=== PATIENT | female | born 1945 | race Caucasian/White ===

== ENCOUNTER 2019-04-02 13:14 | Observation (INO) | payer MEDICARE, SELFPAY ==
[2019-04-02] VITALS (36 sets, daily range): BP systolic 93–140; BP diastolic 54–99; PULSE 0–121; RESP 13–36; TEMP 36.3–36.6; O2SAT 77–99; BMI 46.7
--- NOTE | 2019-04-02 13:19 | ED_ITS ---
HPI - General Adult General: Chief complaint: Dizziness Stated complaint: Anemia, Hypokalemia Time Seen by Provider: 04/02/19 13:16 History of Present Illness: HPI narrative: 73 yo female present presents from her primary care physician's office with hypokalemia and severe anemia she is on Coumadin for atrial fibrillation a few weeks ago she noticed some dark tarry stools but nothing recently she denies any fever sweats chills chest pain she does have some orthopnea. She is not had any hematemesis or coffee-ground emesis she has been taking her Coumadin regularly Associated symptoms: Deny chest pain, dyspnea, malaise, nausea, rash or vomiting Review of Systems Const: Reports: fatigue; Denies: fever, chills, body aches, change in appetite or malaise ENMT: Denies: throat pain, ear pain, nasal discharge or nasal congestion Card: Denies: chest pain, edema, shortness of breath on exertion or shortness of breath when lying down Resp: Denies: shortness of breath, productive cough or non-productive cough GI: Denies: abdominal pain, nausea, vomiting, vomiting blood, coffee grounds in vomit, diarrhea, constipation, bloating, blood in stool or black tarry stool : Denies: flank pain, difficulty urinating, painful urination, urinary frequency or urinary urgency Skin/Breast: Denies: rash or itching PFSH ED PFSH: Statuses (acute, chronic, etc) shown below reflect problem list status as previously entered and may not be historically accurate Medical History Alcohol consumption binge drinking (Acute) Atrial fibrillation, chronic (Resolved) Dyslipidemia (Resolved) Hypertension (Resolved) Lower extremity edema (Acute) RLS (restless legs syndrome) (Resolved) Smoking addiction (Acute) Surgical History H/O tubal ligation (Acute) History of cataract extraction (Acute ~2019) History of hysterectomy (Acute) History of knee replacement (Acute ~2006) right knee Family History Mother Guillain Gonzalez? syndrome Father Alcoholism Social History Smoking and tobacco status: current every day smoker cigarettes Packs smoked per day: 2 Alcohol intake: current Alcohol intake frequency: 3 or more drinks per day Marital status: Current occupational status: retired Physical Exam Const: COMMON NORMALS: no apparent distress GENERAL APPEARANCE: cooperative and comfortable ORIENTATION/CONSCIOUSNESS: Yes awake, Yes oriented to person, Yes oriented to place and Yes oriented to time HENMT: COMMON NORMALS: normocephalic, head/scalp atraumatic, hearing grossly normal bilaterally, external ears normal, EAC's normal, TM's normal bilaterally, nasal mucous membranes and turbinates normal, moist oral mucous membranes and oropharynx normal HEAD & SCALP: normocephalic and atraumatic NOSE: nasal mucous membranes and turbinates normal EXTERNAL EAR: Yes external ears normal EXTERNAL AUDITORY CANAL: EAC's normal TYMPANIC MEMBRANE: TM's normal bilaterally Eye: COMMON NORMALS: PERRL, EOMs intact bilaterally, conjunctivae normal and no scleral icterus CONJUNCTIVA: Yes conjunctivae normal PUPIL: Yes PERRL Neck/C-Spine: COMMON NORMALS: full ROM, no lymphadenopathy, supple and no JVD Lymph: LYMPHATIC: no lymphadenopathy noted and no lymphedema noted Resp: COMMON NORMALS: normal respiratory effort, no retractions, no use of accessory muscles and clear to auscultation bilaterally AUSCULTATION: clear to auscultation bilaterally Cardio: COMMON NORMALS: no JVD, regular rate, regular rhythm and no murmurs RATE: regular rate RHYTHM: regular rhythm GI: COMMON NORMALS: soft to palpation and no hepatosplenomegaly A USCULTATION: Yes normoactive bowel sounds PALPATION: Yes soft, No tender, No guarding and Yes no hepatosplenomegaly Extremity: COMMON NORMALS: normal to inspection, normal capillary refill, no clubbing, cyanosis or edema, no calf tenderness and no pedal edema Neuro: SENSORIUM/ORIENTATION: Yes oriented to person, Yes oriented to place and Yes oriented to time Skin: COMMON NORMALS: no rashes or lesions noted GENERAL SKIN EXAM: no rashes or lesions noted Course ED course: Significant anemia and hypokalemia discussed with hospitalist will admit the patient for IV potassium as well as transfusions. Vital Signs: Vital signs: Vital Signs Temperature 98.0 F 04/03/19 10:19 Pulse Rate 115 H 04/03/19 10:19 Respiratory Rate 18 04/03/19 10:19 Blood Pressure 139/88 04/03/19 10:19 Pulse Oximetry 99 04/03/19 10:19 [facility] - General Adult Lab Data: Attestation: I reviewed the patient's lab results. Lab results narrative: Hemoglobin on admission 6 6. INR 2.3, potassium 2.4. Labs: Lab Results 04/02/19 04/02/19 04/02/19 Range/Units 13:53 13:53 13:53 WBC 7.6 (4.0-10.0) 10^3/ uL RBC 2.89 L (4.1-5.3) 10^6/u L Hgb 6.6 L (11.5-15.3) g/dL Hct 22.6 L (37.0-47.0) % MCV 78.2 L D (81-99) fL MCH 22.8 L (28.0-34.0) pg MCHC 29.2 L D (30.0-36.0) g/dL RDW 18.6 H (12.1-15.1) % Plt Count 332 (130-400) 10^3/c mm MPV 10.4 (7.4-10.4) fL Neut % (Auto) 72.1 % Lymph % (Auto) 20.3 % [place] % (Auto) 5.4 % Eos % (Auto) 1.3 % Baso % (Auto) 0.5 % Neut # (Auto) 5.5 (1.8-7.7) 10^3/u L Lymph # (Auto) 1.6 (0.8-4.8) 10^3/u L [place] # (Auto) 0.4 (0.2-0.9) 10^3/u L Eos # (Auto) 0.1 (0.0-0.8) 10^3/u L Baso # (Auto) 0.0 (0.0-0.1) 10^3/u L Nucleated RBC % (a uto) 0 % Nucleated RBCs # 0.0 /100WBC PT 26.50 H (10.5-13.3) SECO NDS INR 2.33 H (0.8-1.2) APTT 43.0 H (23.9-36.7) SECO NDS Sodium 138 (136-145) mmol/L Potassium 2.4 L* (3.5-5.1) mmol/L Chloride 95 L (98-107) mmol/L Carbon Dioxide 30 H (22-29) mmol/L Anion Gap 15.4 (5-19) BUN 13 (8-23) mg/dL Creatinine 1.1 H (0.5-0.9) mg/dL Glucose 107 H (74-106) mg/dL Calcium 9.3 (8.5-10.5) mg/dL Magnesium (1.7-2.3) mg/dL Iron (37-145) ug/dL TIBC mcg/dl % Saturation (20-50) % Unsat Iron Binding (112-347) ug/dL Ferritin (15-150) ng/mL Total Bilirubin 0.4 (0.15-1.2) mg/dL AST 17 (0-32) U/L ALT 8 (0-33) U/L Alkaline Phosphata se 111 H (35-105) IU/L Creatine Kinase 61 (26-192) U/L Total Protein 7.3 (6.6-8.7) g/dL Albumin 3.7 (3.5-5.2) g/dL Globulin 3.6 (1.3-4.6) g/dL Lipase 27 (13-60) U/L Urine Color (Yellow) Urine Appearance (CLEAR) Urine pH (5-7) Ur Specific Gravit y (1.005-1.030) Urine Protein (Negative) Urine Glucose (UA) (Normal) Urine Ketones (Negative) Urine Occult Blood (Negative) Urine Nitrate (Negative) Urine Bilirubin (NEGATIVE) Urine Urobilinogen (Negative) mg/dL Ur Leukocyte Taylor ase (Negative) H. pylori IgG Anti body (Negative) Blood Type Antibody Screen Crossmatch 04/02/19 04/02/19 04/02/19 Range/Units 13:53 13:53 13:53 WBC (4.0-10.0) 10^3/ uL RBC (4.1-5.3) 10^6/u L Hgb (11.5-15.3) g/dL Hct (37.0-47.0) % MCV (81-99) fL MCH (28.0-34.0) pg MCHC (30.0-36.0) g/dL RDW (12.1-15.1) % Plt Count (130-400) 10^3/c mm MPV (7.4-10.4) fL Neut % (Auto) % Lymph % (Auto) % [place] % (Auto) % Eos % (Auto) % Baso % (Auto) % Neut # (Auto) (1.8-7.7) 10^3/u L Lymph # (Auto) (0.8-4.8) 10^3/u L [place] # (Auto) (0.2-0.9) 10^3/u L Eos # (Auto) (0.0-0.8) 10^3/u L Baso # (Auto) (0.0-0.1) 10^3/u L Nucleated RBC % (a uto) % Nucleated RBCs # /100WBC PT (10.5-13.3) SECO NDS INR (0.8-1.2) APTT (23.9-36.7) SECO NDS Sodium (136-145) mmol/L Potassium (3.5-5.1) mmol/L Chloride (98-107) mmol/L Carbon Dioxide (22-29) mmol/L Anion Gap (5-19) BUN (8-23) mg/dL Creatinine (0.5-0.9) mg/dL Glucose (74-106) mg/dL Calcium (8.5-10.5) mg/dL Magnesium 1.8 (1.7-2.3) mg/dL Iron 15 L (37-145) ug/dL TIBC 396 mcg/dl % Saturation 3.7 L (20-50) % Unsat Iron Binding 381 H (112-347) ug/dL Ferritin 10 L (15-150) ng/mL Total Bilirubin (0.15-1.2) mg/dL AST (0-32) U/L ALT (0-33) U/L Alkaline Phosphata se (35-105) IU/L Creatine Kinase (26-192) U/L Total Protein (6.6-8.7) g/dL Albumin (3.5-5.2) g/dL Globulin (1.3-4.6) g/dL Lipase (13-60) U/L Urine Color (Yellow) Urine Appearance (CLEAR) Urine pH (5-7) Ur Specific Gravit y (1.005-1.030) Urine Protein (Negative) Urine Glucose (UA) (Normal) Urine Ketones (Negative) Urine Occult Blood (Negative) Urine Nitrate (Negative) Urine Bilirubin (NEGATIVE) Urine Urobilinogen (Negative) mg/dL Ur Leukocyte Taylor ase (Negative) H. pylori IgG Anti body Positive H (Negative) Blood Type A Positive Antibody Screen Negative Crossmatch See Detail 04/02/19 Range/Units 14:14 WBC (4.0-10.0) 10^3/ uL RBC (4.1-5.3) 10^6/u L Hgb (11.5-15.3) g/dL Hct (37.0-47.0) % MCV (81-99) fL MCH (28.0-34.0) pg MCHC (30.0-36.0) g/dL RDW (12.1-15.1) % Plt Count (130-400) 10^3/c mm MPV (7.4-10.4) fL Neut % (Auto) % Lymph % (Auto) % [place] % (Auto) % Eos % (Auto) % Baso % (Auto) % Neut # (Auto) (1.8-7.7) 10^3/u L Lymph # (Auto) (0.8-4.8) 10^3/u L [place] # (Auto) (0.2-0.9) 10^3/u L Eos # (Auto) (0.0-0.8) 10^3/u L Baso # (Auto) (0.0-0.1) 10^3/u L Nucleated RBC % (a uto) % Nucleated RBCs # /100WBC PT (10.5-13.3) SECO NDS INR (0.8-1.2) APTT (23.9-36.7) SECO NDS Sodium (136-145) mmol/L Potassium (3.5-5.1) mmol/L Chloride (98-107) mmol/L Carbon Dioxide (22-29) mmol/L Anion Gap (5-19) BUN (8-23) mg/dL Creatinine (0.5-0.9) mg/dL Glucose (74-106) mg/dL Calcium (8.5-10.5) mg/dL Magnesium (1.7-2.3) mg/dL Iron (37-145) ug/dL TIBC mcg/dl % Saturation (20-50) % Unsat Iron Binding (112-347) ug/dL Ferritin (15-150) ng/mL Total Bilirubin (0.15-1.2) mg/dL AST (0-32) U/L ALT (0-33) U/L Alkaline Phosphata se (35-105) IU/L Creatine Kinase (26-192) U/L Total Protein (6.6-8.7) g/dL Albumin (3.5-5.2) g/dL Globulin (1.3-4.6) g/dL Lipase (13-60) U/L Urine Color Yellow (Yellow) Urine Appearance Clear (CLEAR) Urine pH 7 (5-7) Ur Specific Gravit y 1.005 (1.005-1.030) Urine Protein Neg (Negative) Urine Glucose (UA) Norm (Normal) Urine Ketones Negative (Negative) Urine Occult Blood Neg (Negative) Urine Nitrate Negative (Negative) Urine Bilirubin Neg (NEGATIVE) Urine Urobilinogen Norm (Negative) mg/dL Ur Leukocyte Taylor ase Negative (Negative) H. pylori IgG Anti body (Negative) Blood Type Antibody Screen Crossmatch Discharge Plan Discharge Patient Disposition: Admitted As Inpatient Admit Provider: Zaheer Crawford Clinical Impression: Hypokalemia, Acute blood loss anemia, Lower extremity edema Condition: Stable Discharge Orders: Discharge Order (Routine); Ordered 04/03/19 Ordered By: Zaheer Crawford Referrals: Surgery [Provider Group] - 04/11/19 8:45 am (EGD APPOINTMENT WITH [facility] [phone] ON APR 11 AT 8:45) Aftab Gutierres DO [Primary Care Provider] - 04/09/19 11:30 am Alonso Lara MD [Physician] - 04/11/19 8:45 am Discharge Diet: Soft Mechanical Discharge Activity: Resume usual activity Patient Instructions: Sucralfate (By mouth), Potassium Chloride (By mouth), Fol ic Acid (By mouth), Pantoprazole (By mouth), Cigarette Smoking and Your Health (GEN), At-Risk Alcohol Use (GEN) Additional Instructions: If you experience dark black stools, fresh blood in your stools, fainting, lightheadedness, chest pain, worsening shortness of breath, or other symptoms please seek medical attention without delay. Please avoid any NSAIDs like ibuprofen, naproxen, etc. Add foods rich in potassium like bananas, oranges, tomatoes, potatoes, etc. Discharge Date/Time: 04/02/19 20:10 Coding Level of Care Code ED Food Consultant for Chg Fwd Exam Problem Focused
--- NOTE | 2019-04-02 13:41 | XR_ITS ---
WS: [id number] PORTABLE CHEST HISTORY: dypsnea COMPARISON: None available. Lungs are hyperexpanded. Increased density at the lung bases is thought to be overlying soft tissue a nd not pneumonia. Normal vasculature. No pleural effusion or pneumothorax. Cardiac size: Normal. Mediastinum/Aorta: Normal mediastinum. No osseous abnormality seen. XR/XR chest 1V portable [id number] IMPRESSION: Unremarkable portable chest.
[2019-04-02 14:10] LABS: Basophils % 0.5 %; Eosinophils # 0.1 10^3/uL (0.0-0.8); Eosinophils % 1.3 %; Hematocrit 22.6 % (37.0-47.0); Hemoglobin 6.6 g/dL (11.5-15.3); INR 2.33 (0.8-1.2); Lymphocytes # 1.6 10^3/uL (0.8-4.8); Lymphocytes % 20.3 %; Mean Corpuscular HGB Conc 29.2 g/dL (30.0-36.0); Mean Corpuscular Hemoglobin 22.8 pg (28.0-34.0); Mean Corpuscular Volume 78.2 fL (81-99); Mean Platelet Volume 10.4 fL (7.4-10.4); Monocytes # 0.4 10^3/uL (0.2-0.9); Monocytes % 5.4 %; Neutrophils # 5.5 10^3/uL (1.8-7.7); Neutrophils % 72.1 %; Nucleated Red Blood Cells % 0 %; Platelet Count 332 10^3/cmm (130-400); Red Blood Count 2.89 10^6/uL (4.1-5.3); Red Cell Distribution Width 18.6 % (12.1-15.1); White Blood Count 7.6 10^3/uL (4.0-10.0)
[2019-04-02 14:18] LABS: Alanine Aminotransferase 8 U/L (0-33); Albumin Level 3.7 g/dL (3.5-5.2); Alkaline Phosphatase 111 IU/L (35-105); Anion Gap 15.4 (5-19); Aspartate Amino Transferase 17 U/L (0-32); Blood Urea Nitrogen 13 mg/dL (8-23); Calcium 9.3 mg/dL (8.5-10.5); Carbon Dioxide 30 mmol/L (22-29); Chloride 95 mmol/L (98-107); Creatine Phosphokinase 61 U/L (26-192); Globulin 3.6 g/dL (1.3-4.6); Glucose 107 mg/dL (74-106); Lipase 27 U/L (13-60); Sodium 138 mmol/L (136-145); Total Bilirubin 0.4 mg/dL (0.15-1.2); Total Protein 7.3 g/dL (6.6-8.7)
[2019-04-02 14:24] LABS: Potassium 2.4 mmol/L (3.5-5.1)
[2019-04-02 14:25] LABS: Add Urine Microscopic? NO
[2019-04-02 14:40] LABS: Urine Appearance Clear (CLEAR); Urine Color Yellow (Yellow)
[2019-04-02 14:41] LABS: Bilirubin Urine Neg (NEGATIVE); Blood Urine Neg (Negative); Glucose Urine UA Norm (Normal); Ketones Urine Negative (Negative); Leukocyte Esterase Urine Negative (Negative); Nitrate Urine Negative (Negative); Protein Urine Neg (Negative); Specific Gravity, Urine 1.005 (1.005-1.030); Urobilinogen Urine Norm (Negative); pH Urine 7 (5-7)
[2019-04-02] MEDS: acetaminophen 325 mg Tablet 650 MG PO (14:58)
[2019-04-02] MEDS: diphenhydrAMINE 50 mg/mL SDV 1mL 25 MG IVP (15:16)
[2019-04-02] MEDS: potassium chloride premix 40 MEQ/100 ML PREMIX 25 MEQ IV (15:17)
[2019-04-02] MEDS: sodium chloride 0.9% 1,000 ML 125 ML IV (15:18)
--- NOTE | 2019-04-02 15:33 | PM.HP ---
Providers/Chief Complaint Primary Care Provider: Aftab Gutierres DO Chief Complaint: Anemia, Hypokalemia History of Present Illness Jazmín Quinteros is a pleasant 73 year old female with history of atrial fibrillation, on chronic anticoagulation with warfarin, chronic edema, she states possible CHF was considered by her PCP, on chronic diuretic therapy, chronic pain for which she takes ibuprofen, current heavy every day smoker, with binge alcohol intake was referred to emergency department for evaluation by her primary care provider due to abnormal labs, including hemoglobin of 6.6, with recently with symptoms of fatigue, especially with exertion, as well as with noted hypokalemia, potassium 2.3. Her INR is therapeutic at 2.3. She reports having dark black stool several weeks ago which had spontaneously resolved. She had a Hemoccult checked in ER which was negative. She denies taking aspirin. She does take ibuprofen intermittently for chronic pain. She drinks she states probably 3 times weekly, about 6-7 shots on those occasions. She reports having a colonoscopy [address] Rene which was unremarkable. She denies having upper endoscopy, although did have a barium swallow study a very long time ago. She smokes 2 packs/day. Review of Systems Const: Reports: fatigue; Denies: fever, chills, body aches or malaise Eyes: Denies: change in vision or eye redness ENMT: Denies: throat pain, oral sores/lesions or ear pain Card: Reports: edema; Denies: chest pain, pre-syncope or shortness of breath on exertion Resp: Denies: shortness of breath, productive cough, change in phlegm color or coughing up blood GI: Reports: black tarry stool (Several weeks ago); Denies: abdominal pain, nausea, vomiting, diarrhea, constipation or blood in stool : Denies: flank pain, urinary frequency or blood in urine Musc: Denies: back pain, joint swelling or redness Skin/Breast: Denies: rash, sores or new lesion Neuro: Denies: headache, numbness in extremities, weakness in extremities, dizziness, confusion or seizure-like activity Endo: Denies: excessive urination or excessive thirst Ty/Lymph: Denies: easy bleeding or purpura All/Imm: Denies: hives, throat swelling or tongue swelling Medications/Allergies Home Medications Medication Instructions Recorded Confirmed Last Taken Type warfarin 1 mg PO DAILY 04/02/19 04/02/19 04/01/19 History warfarin 3 mg PO DAILY 04/02/19 04/02/19 04/01/19 History Allergies Allergy/AdvReac Type Severity Reaction Status Date / Time meperidine [From Demerol] AdvReac Intermediate ADR-Itching Verified 04/02/19 10:33 PFSH Acute PFSH: Statuses (acute, chronic, etc) shown below reflect problem list status as previously entered and may not be historically accurate Medical History Alcohol consumption binge drinking (Acute) Atrial fibrillation, chronic (Acute) Dyslipidemia (Acute) Hypertension (Acute) Lower extremity edema (Acute) RLS (restless legs syndrome) (Acute) Smoking addiction (Acute) Surgical History H/O tubal ligation (Acute) History of cataract extraction (Acute ~2018) History of hysterectomy (Acute) History of knee replacement (Acute ~2006) right knee Family History Mother Guillain Gonzalez? syndrome Father Alcoholism Social History Smoking and tobacco status: current every day smoker cigarettes Packs smoked per day: 2 Alcohol intake: current Alcohol intake frequency: 3 or more drinks per day Substance/Drug Use: never Marital status: Current occupational status: retired Vitals/I&O/Wt Last Vital Signs Temp 97.8 F 04/02/19 13:17 Pulse 98 04/02/19 13:17 Resp 16 04/02/19 13:17 BP 106/70 04/02/19 13:17 Pulse Ox 97 04/02/19 13:17 Weight last 48 hrs Weight 116.12 kg Physical Exam Const: COMMON NORMALS: no apparent distress, oriented x3 and alert GENERAL APPEARANCE: cooperative and comfortable NUTRITIONAL APPEARANCE: obese HENMT: COMMON NORMALS: oropharynx normal Neck/C-Spine: COMMON NORMALS: no JVD Resp: COMMON NORMALS: normal respiratory effort and clear to auscultation bilaterally AUSCULTATION: clear to auscultation bilaterally Cardio: COMMON NORMALS: no JVD, regular rhythm, S1 normal heart sound, S2 normal heart sound and no murmurs RHYTHM: regular rhythm HEART SOUNDS: S1 normal and S2 normal GI: COMMON NORMALS: normal to inspection, nondistended, normoactive bowel sounds, soft to palpation and non-tender PALPATION: Yes soft Extremity: COMMON NORMALS: no joint enlargement GENERAL: Yes edema Neuro: COMMON NORMALS: oriented x3 and moves all extremities Skin: COMMON NORMALS: no rashes or lesions noted GENERAL SKIN EXAM: no rashes or lesions noted OTHER: Bilateral lower extremity chronic venous stasis dermatitis. Data : 04/02/19 13:53 04/02/19 13:53 A&P Assessment and plan (1) Acute blood loss anemia: Hemoglobin 6.6. Symptomatic anemia. Black tarry stools several weeks ago. Resolved. Hemoccult negative in ER. With symptoms of easy fatigability. She is placed in observation for transfusion of PRBC and reassessment of hemoglobin due to chronic anticoagulation. Suspect gastritis or PUD given NSAID use, alcohol overuse. We will start twice daily PPI. Sucralfate. Counseled against NSAID use, as well as alcohol cessation. She verbalized understanding. Assess H. pylori studies. Will refer for screening EGD given chronic smoking, alcohol intake. Status: Acute Code(s): D62 - Acute posthemorrhagic anemia (2) Hypokalemia: Replace. Check magnesium. Status: Acute Code(s): E87.6 - Hypokalemia (3) Atrial fibrillation, chronic: On chronic anticoagulation with warfarin. Continue Cardizem. Status: Acute Code(s): I48.20 - Chronic atrial fibrillation, unspecified (4) Smoking addiction: Discussed cessation for 4 minutes. Discussed risks associated with stomach cancer, as well as cardiovascular and pulmonary complications. She verbalized understanding. She smokes 2 packs/day currently. She does understand that she should quit, although is not sure whether she is ready. She is agreeable for nicotine patch and oral nicotine replacement for cravings while in the hospital. Status: Acute Code(s): F17.200 - Nicotine dependence, unspecified, uncomplicated (5) Alcohol consumption binge drinking: Reports 6-7 shots about 3 times a week. Discussed with her regarding risks of excessive alcohol consumption. Recommended she discontinue or at least decrease. She verbalized understanding. We will start her on thiamine, folic acid supplementation. Please continue to encourage cessation. Status: Acute Code(s): F10.10 - Alcohol abuse, uncomplicated (6) Lower extremity edema: Chronic edema of lower extremities for which she takes Lasix. Likely contributing to her hypokalemia. She states that congestive heart failure is considered by her primary care provider, although does not think she is formally diagnosed. Status: Acute Code(s): R60.0 - Localized edema Attestations Medical Necessity Statement*: Place in observation. Coding Level of Care Code Acute Production Sound Mixer for Germania Love Diagnoses Acute blood loss anemia D62 Hypokalemia E87.6 Atrial fibrillation, chronic I48.20 Smoking addiction F17.200 Alcohol consumption binge drinking F10.10 Lower extremity edema R60.0
--- NOTE | 2019-04-02 17:05 | PC.NURSE ---
pt ambulated to bathroom without need for assist. pt tolerated well and is resting in bed with no further complaints.
[2019-04-02 22:01] LABS: Magnesium 1.8 mg/dL (1.7-2.3)
[2019-04-02 22:06] LABS: H. Pylori IgG Antibody Positive (Negative)
[2019-04-02] MEDS: trazodone 100 mg Tablet 150 MG PO (22:50)
[2019-04-02] MEDS: dilTIAZem ER (24HR) 120 mg Capsule PO (22:54)
[2019-04-02] MEDS: nicotine 21 mg Patch 1 PATCH TRANSDERMA (22:54)
[2019-04-02] MEDS: atorvastatin 40 mg Tablet 20 MG PO (22:55)
[2019-04-02] MEDS: D5-NS 0.45% + KCL 20 mEq 20 MEQ/1,000 ML BAG 100 MEQ IV (22:56)
[2019-04-02] MEDS: pantoprazole DR 40 mg Tablet PO (22:58)
[2019-04-02] MEDS: nortriptyline 25 mg Capsule PO (22:58)
[2019-04-02] MEDS: diphenhydrAMINE 50 mg/mL SDV 1mL 12.5 MG IVP (23:50)
[2019-04-03] VITALS (7 sets, daily range): BP systolic 101–144; BP diastolic 67–88; PULSE 100–115; RESP 18–22; TEMP 36.6–36.9; O2SAT 90–99
[2019-04-03 00:57] LABS: Ferritin 10 ng/mL (15-150); Iron 15 ug/dL (37-145); Percent Saturation 3.7 % (20-50); Total Iron Binding Capacity 396 mcg/dl; Unsaturated Iron Binding 381 ug/dL (112-347)
[2019-04-03 05:32] LABS: Basophils % 0.7 %; Eosinophils # 0.1 10^3/uL (0.0-0.8); Eosinophils % 2.2 %; Hematocrit 27.1 % (37.0-47.0); Hemoglobin 8.3 g/dL (11.5-15.3); Lymphocytes # 1.1 10^3/uL (0.8-4.8); Lymphocytes % 18.4 %; Mean Corpuscular HGB Conc 30.6 g/dL (30.0-36.0); Mean Corpuscular Hemoglobin 24.3 pg (28.0-34.0); Mean Corpuscular Volume 79.5 fL (81-99); Mean Platelet Volume 10.5 fL (7.4-10.4); Monocytes # 0.3 10^3/uL (0.2-0.9); Monocytes % 5.8 %; Neutrophils # 4.3 10^3/uL (1.8-7.7); Neutrophils % 72.6 %; Nucleated Red Blood Cells % 0.3 %; Platelet Count 288 10^3/cmm (130-400); Red Blood Count 3.41 10^6/uL (4.1-5.3); Red Cell Distribution Width 17.3 % (12.1-15.1); White Blood Count 5.9 10^3/uL (4.0-10.0)
[2019-04-03 05:38] LABS: Alanine Aminotransferase 8 U/L (0-33); Albumin Level 2.9 g/dL (3.5-5.2); Alkaline Phosphatase 94 IU/L (35-105); Anion Gap 16.1 (5-19); Aspartate Amino Transferase 18 U/L (0-32); Blood Urea Nitrogen 8 mg/dL (8-23); Calcium 8.6 mg/dL (8.5-10.5); Carbon Dioxide 25 mmol/L (22-29); Chloride 97 mmol/L (98-107); Glucose 118 mg/dL (74-106); Potassium 3.1 mmol/L (3.5-5.1); Sodium 135 mmol/L (136-145); Total Bilirubin 1.1 mg/dL (0.15-1.2); Total Protein 6.9 g/dL (6.6-8.7)
[2019-04-03] MEDS: sucralfate 1 gm/10 mL Oral Liq UDC PO (06:34)
[2019-04-03] MEDS: pantoprazole DR 40 mg Tablet PO (10:08)
[2019-04-03] MEDS: folic acid 1 mg Tablet PO (10:09)
[2019-04-03] MEDS: nortriptyline 25 mg Capsule PO (10:09)
[2019-04-03] MEDS: FUROsemide 40 mg Tablet PO (10:09)
[2019-04-03] MEDS: metoprolol tartrate 50 mg Tablet PO (10:09)
[2019-04-03] MEDS: dilTIAZem ER (24HR) 120 mg Capsule PO (10:09)
--- NOTE | 2019-04-03 10:33 | PM.DCS ---
Discharge Providers Date of Admission: 04/02/19 14:33 Date of Discharge: 04/03/19 Attending Provider at Admission: Zaheer Crawford Attending Provider at Discharge: Zaheer Crawford Primary Care Provider: Aftab Gutierres DO Diagnoses at Discharge Discharge Diagnosis (1) Acute blood loss anemia: Status: Acute (2) Hypokalemia: Status: Acute (3) Atrial fibrillation, chronic: Status: Acute (4) Smoking addiction: Status: Acute (5) Alcohol consumption binge drinking: Status: Acute (6) Lower extremity edema: Status: Acute Reason for Visit Reason for Visit: Reason For Visit: Anemia, Hypokalemia Hospital Course Hospital Course: Very pleasant 73-year-old lady with history of atrial fibrillation, on chronic anticoagulation with warfarin, chronic edema, she states possible CHF was considered by her PCP, on chronic diuretic therapy, chronic pain for which she takes ibuprofen, current heavy every day smoker, with binge alcohol intake was referred to emergency department for assessment by her primary care provider due to abnormal hemoglobin, noted to be 6.6, with easy fatigability, as well as low potassium. She reported dark black stool several weeks ago. Hemoglobin found stable in ER, with negative Hemoccult. It appears she likely had an upper GI bleed, possibly related to NSAID's gastritis. She received RBC transfusion 2 units with good response, hemoglobin up to 8.3. She reports feeling much better today, request return home. Of note H. pylori antibody is positive. H. pylori stool antigen has been ordered, however, she has not been able to give a sample so far. She will try to before discharge. Please follow-up on this in office. Her potassium was replaced, and she started on daily replacement for now as she is on chronic Lasix. BMP and CBC will be rechecked in 3 days for hemoglobin and potassium. She is referred for EGD given long and heavy smoking history, currently smoking 2 packs/day. She was counseled on cessation, please assist her with quitting. She is also noted to be binge drinking, drinking 6-7 shots at least 3 days out of a week. We discussed cessation. She started on thiamine and folic acid. Please continue to assist her to abstain, or reduce alcohol intake. Physical Exam Const: COMMON NORMALS: no apparent distress, oriented x3 and alert GENERAL APPEARANCE: cooperative and comfortable NUTRITIONAL APPEARANCE: obese HENMT: COMMON NORMALS: oropharynx normal Neck/C-Spine: COMMON NORMALS: no JVD Resp: COMMON NORMALS: normal respiratory effort and clear to auscultation bilaterally AUSCULTATION: clear to auscultation bilaterally Cardio: COMMON NORMALS: no JVD, regular rhythm, S1 normal heart sound, S2 normal heart sound and no murmurs RHYTHM: regular rhythm HEART SOUNDS: S1 normal and S2 normal GI: COMMON NORMALS: normal to inspection, nondistended, normoactive bowel sounds, soft to palpation and non-tender PALPATION: Yes soft Extremity: COMMON NORMALS: no joint enlargement GENERAL: Yes edema Neuro: COMMON NORMALS: oriented x3 and moves all extremities SENSORIUM/ORIENTATION: Yes alert Skin: COMMON NORMALS: no rashes or lesions noted GENERAL SKIN EXAM: no rashes or lesions noted OTHER: Bilateral lower extremity chronic venous stasis dermatitis. Discharge Data Data Completed and Pending: Completed Studies During Hospitalization Category Date Time Status XR chest 1V yola ble [id number] Urgent Exams 04/02/19 13:41 Completed Pending at discharge Category Date Time Status HH [Hemoglobin an d Hematocrit] AM L ABS Lab 04/04/19 04:00 Ordered Helicobacter Pylo ri AG Stool Routin e Lab 04/02/19 21:23 Ordered Labs from last 24 hours 04/03/19 04/03/19 04/02/19 04:32 04:32 23:49 WBC 5.9 RBC 3.41 L Hgb 8.3 L 7.0 L Hct 27.1 L MCV 79.5 L MCH 24.3 L MCHC 30.6 RDW 17.3 H Plt Count 288 MPV 10.5 H Neut % (Auto) 72.6 Lymph % (Auto) 18.4 Dickens % (Auto) 5.8 Eos % (Auto) 2.2 Baso % (Auto) 0.7 Neut # (Auto) 4.3 Lymph # (Auto) 1.1 Dickens # (Auto) 0.3 Eos # (Auto) 0.1 Baso # (Auto) 0.0 Nucleated RBC % (a uto) 0.3 Nucleated RBCs # 0.0 PT INR APTT Sodium 135 L Potassium 3.1 L Chloride 97 L Carbon Dioxide 25 Anion Gap 16.1 BUN 8 Creatinine 0.9 Glucose 118 H Calcium 8.6 Magnesium Iron TIBC % Saturation Unsat Iron Binding Ferritin Total Bilirubin 1.1 AST 18 ALT 8 Alkaline Phosphata se 94 Creatine Kinase Total Protein 6.9 Albumin 2.9 L Globulin 4.0 Lipase Urine Color Urine Appearance Urine pH Ur Specific Gravit y Urine Protein Urine Glucose (UA) Urine Ketones Urine Occult Blood Urine Nitrate Urine Bilirubin Urine Urobilinogen Ur Leukocyte Taylor ase H. pylori IgG Anti body Blood Type Antibody Screen Crossmatch 04/02/19 04/02/19 04/02/19 14:14 13:53 13:53 WBC RBC Hgb Hct MCV MCH MCHC RDW Plt Count MPV Neut % (Auto) Lymph % (Auto) Dickens % (Auto) Eos % (Auto) Baso % (Auto) Neut # (Auto) Lymph # (Auto) Dickens # (Auto) Eos # (Auto) Baso # (Auto) Nucleated RBC % (a uto) Nucleated RBCs # PT INR APTT Sodium Potassium Chloride Carbon Dioxide Anion Gap BUN Creatinine Glucose Calcium Magnesium 1.8 Iron 15 L TIBC 396 % Saturation 3.7 L Unsat Iron Binding 381 H Ferritin 10 L Total Bilirubin AST ALT Alkaline Phosphata se Creatine Kinase Total Protein Albumin Globulin Lipase Urine Color Yellow Urine Appearance Clear Urine pH 7 Ur Specific Gravit y 1.005 Urine Protein Neg Urine Glucose (UA) Norm Urine Ketones Negative Urine Occult Blood Neg Urine Nitrate Negative Urine Bilirubin Neg Urine Urobilinogen Norm Ur Leukocyte Taylro ase Negative H. pylori IgG Anti body Positive H Blood Type Antibody Screen Crossmatch 04/02/19 04/02/19 04/02/19 13:53 13:53 13:53 WBC RBC Hgb Hct MCV MCH MCHC RDW Plt Count MPV Neut % (Auto) Lymph % (Auto) Dickens % (Auto) Eos % (Auto) Baso % (Auto) Neut # (Auto) Lymph # (Auto) Dickens # (Auto) Eos # (Auto) Baso # (Auto) Nucleated RBC % (a uto) Nucleated RBCs # PT 26.50 H INR 2.33 H APTT 43.0 H Sodium 138 Potassium 2.4 L* Chloride 95 L Carbon Dioxide 30 H Anion Gap 15.4 BUN 13 Creatinine 1.1 H Glucose 107 H Calcium 9.3 Magnesium Iron TIBC % Saturation Unsat Iron Binding Ferritin Total Bilirubin 0.4 AST 17 ALT 8 Alkaline Phosphata se 111 H Creatine Kinase 61 Total Protein 7.3 Albumin 3.7 Globulin 3.6 Lipase 27 Urine Color Urine Appearance Urine pH Ur Specific Gravit y Urine Protein Urine Glucose (UA) Urine Ketones Urine Occult Blood Urine Nitrate Urine Bilirubin Urine Urobilinogen Ur Leukocyte Taylor ase H. pylori IgG Anti body Blood Type A Positive Antibody Screen Negative Crossmatch See Detail 04/02/19 13:53 WBC 7.6 RBC 2.89 L Hgb 6.6 L Hct 22.6 L MCV 78.2 L D MCH 22.8 L MCHC 29.2 L D RDW 18.6 H Plt Count 332 MPV 10.4 Neut % (Auto) 72.1 Lymph % (Auto) 20.3 Dickens % (Auto) 5.4 Eos % (Auto) 1.3 Baso % (Auto) 0.5 Neut # (Auto) 5.5 Lymph # (Auto) 1.6 Dickens # (Auto) 0.4 Eos # (Auto) 0.1 Baso # (Auto) 0.0 Nucleated RBC % (a uto) 0 Nucleated RBCs # 0.0 PT INR APTT Sodium Potassium Chloride Carbon Dioxide Anion Gap BUN Creatinine Glucose Calcium Magnesium Iron TIBC % Saturation Unsat Iron Binding Ferritin Total Bilirubin AST ALT Alkaline Phosphata se Creatine Kinase Total Protein Albumin Globulin Lipase Urine Color Urine Appearance Urine pH Ur Specific Gravit y Urine Protein Urine Glucose (UA) Urine Ketones Urine Occult Blood Urine Nitrate Urine Bilirubin Urine Urobilinogen Ur Leukocyte Taylor ase H. pylori IgG Anti body Blood Type Antibody Screen Crossmatch Vitals: Last Vital Signs Temp 98.0 F 04/03/19 10:19 Pulse 115 H 04/03/19 10:19 Resp 18 04/03/19 10:19 BP 139/88 04/03/19 10:19 Pulse Ox 99 04/03/19 10:19 Discharge Plan Discharge Patient Disposition: Home, Self-Care Condition: Stable Prescriptions: New sucralfate 100 mg/mL Suspension 1 g PO AC&BEDTIME 14 Days Qty: 420 RF: 0 potassium chloride 10 mEq Tablet Extended Release 40 meq PO DAILY Qty: 14 RF: 0 pantoprazole 40 mg Tablet,Delayed Release (Dr/Ec) 40 mg PO BID Qty: 60 RF: 0 nicotine 21 mg/24 hr Patch 24 Hour 1 patch transdermal BEDTIME Qty: 30 RF: 0 folic acid 1 mg Tablet 1 mg PO DAILY Qty: 30 RF: 0 Vitamin B-1 (mononitrate) 100 mg Tablet 100 mg PO DAILY Qty: 30 RF: 0 Continued diphenhydramine HCl [Allergy (diphenhydramine)] 25 mg capsule 25 mg PO Q6H PRN (Reason: Allergy Symptoms) RF: 0 docusate sodium [Dulcolax Stool Softener (dss)] 100 mg capsule 100 mg PO QDAY PRN (Reason: Constipation) RF: 0 metoprolol tartrate 50 mg tablet 50 mg PO DAILY RF: 0 rosuvastatin [Crestor] 5 mg tablet 5 mg PO QDAY RF: 0 nortriptyline 25 mg capsule 25 mg PO TID RF: 0 trazodone 100 mg tablet 150 mg PO BEDTIME PRN (Reason: sleep) RF: 0 nitroglycerin [Nitrostat] 0.4 mg tablet, sublingual 0.4 mg SUBLINGUAL Q5M PRN (Reason: Chest Pain) RF: 0 diltiazem HCl [Cartia XT] 120 mg capsule,extended release 24hr 120 mg PO BID RF: 0 furosemide 40 mg tablet 40 mg PO BID RF: 0 ergocalciferol (vitamin D2) 1,250 mcg (50,000 unit) capsule 1,250 mcg PO .weekly RF: 0 warfarin 3 mg Tablet 3 mg PO DAILY RF: 0 warfarin 1 mg Tablet 1 mg PO DAILY RF: 0 Discontinued ibuprofen 200 mg capsule 200 mg PO Q6H PRN (Reason: Pain) RF: 0 Discharge Orders: Discharge Order (Routine); Ordered 04/03/19 Ordered By: Zaheer Crawford Other Ambulatory Orders: Basic Metabolic Panel (Routine) Timeframe: 3 Days Facility: [facility] - Location: Lab - Main Lab Ordered By: Zaheer Crawford Complete Blood Count w/Auto (Routine) Timeframe: 3 Days Location: Determined by Patient Ordered By: Zaheer Crawford Miscellaneous Procedure (Order) Timeframe: 3 Days Location: None Selected Ordered By: Zaheer Crawford Referrals: Surgery [Provider Group] - 1 week (EGD) Aftab Gutierres DO [Primary Care Provider] - 4-7 days Discharge Diet: Soft Mechanical Discharge Activity: Resume usual activity Patient Instructions: Sucralfate (By mouth), Potassium Chloride (By mouth), Folic Acid (By mouth), Pantoprazole (By mouth), Cigarette Smoking and Your Health (GEN), At-Risk Alcohol Use (GEN) Activity Restrictions/Additional Instructions: If you experience dark black stools, fresh blood in your stools, fainting, lightheadedness, chest pain, worsening shortness of breath, or other symptoms please seek medical attention without delay. Please avoid any NSAIDs like ibuprofen, naproxen, etc. Add foods rich in potassium like bananas, oranges, tomatoes, potatoes, etc. 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
--- NOTE | 2019-04-05 09:44 | PC.SOCIAL ---
clarified potassium with Dr Crawford pt is to take 20 MEQ once daily for 7 days total of 14 pills. Have updated pharmacy and called patient. Pt read back instructions and verbalized understanding. She knows she will need to discuss with Dr Gutierres on Monday of next week what dose he would like to continue post follow up visit. No other questions voiced. Spoke with Claudia to update at [facility] pharmacy.
== END 2019-04-03 11:07 | disposition home or self-care (01) ==
LOC: ER 13:34 → MEDSURG 19:14
PROVIDERS: Admitting Provider Internal Medicine; Emergency Provider Family Medicine; Family Provider Family Medicine; PCP Family Medicine; Visit Provider Internal Medicine
DX: D62 Acute posthemorrhagic anemia (principal); E87.6 Hypokalemia; I48.20 Chronic atrial fibrillation, unspecified; F17.210 Nicotine dependence, cigarettes, uncomplicated; F10.10 Alcohol abuse, uncomplicated; R06.00 Dyspnea, unspecified; Z79.01 Long term (current) use of anticoagulants; I10 Essential (primary) hypertension
CPT/HCPCS: 12345; 36415; 36430; 71045; 80053; 81003; 82550; 82728; 83540; 83550; 83690; 83735; 85018; 85025; 85610; 85730; 86677; 86850; 86900; 96360; 96361; 96365; 96366; 96374; 96375; 96376; 99283; 99291; G0378; J1200; J3480; J7030; P9016

== ENCOUNTER 2019-04-09 14:52 | Outpatient (CLI) | payer MEDICARE, SELFPAY ==
--- NOTE | 2019-04-09 14:00 | USCV_ITS ---
Jazmín Quinteros Age: 73 Gender: F : 1945 Exam Date: 04/09/2019 15:11 Ordering Phys: Aftab Gutierres DO Technologist: Leodan Tomlin [place] [facility] [place] RT LEG PAIN AND SWELLING HISTORY: Lower extremity swelling. Lower extremity edema. PROCEDURES: Venous duplex imaging was performed in only the right lower extremity. The following venous structures were evaluated: common femoral vein, profunda vein, proximal portion of the greater saphenous vein, superficial femoral vein, and the popliteal vein. In addition, the posterior tibial and peroneal trunk were evaluated. On the right side, the common femoral, superficial femoral, profunda femoral, popliteal, posterior tibial, greater saphenous veins and the peroneal trunk were identified and interrogated in the standard fashion. These veins were found to be easily compressible with spontaneous blood flow. No evidence of insufficiency or thrombus noted. FINDINGS: Normal 2-D Doppler and augmentation and compressibility throughout the lower extremity venous structures. Additional imaging through the proximal calf veins also reveals no thrombus. Limited evaluation of the greater saphenous vein is patent with no thrombus.. CONCLUSIONS Right lower extremity venous Doppler ultrasound. Dr. Leydi Mckeon MD (Electronically Signed) Final Date: 09 April 2019 15:55 S
== END 2019-04-09 14:53 | disposition home or self-care (01) ==
LOC: RAD 14:57
PROVIDERS: Family Provider Family Medicine; PCP Family Medicine; Visit Provider Family Medicine
DX: M79.89 Other specified soft tissue disorders (principal); R60.0 Localized edema
CPT/HCPCS: 80053; 85025; 85610; 93971

== ENCOUNTER 2019-04-25 06:25 | Day surgery (SDC) | payer MEDICARE, SELFPAY ==
[2019-04-24 09:56] VITALS: BMI 46.0
[2019-04-25 06:52] VITALS: BP 117/73; PULSE 121; RESP 18; TEMP 36.3; O2SAT 96
--- NOTE | 2019-04-25 06:55 | ANES.PREANE2 ---
Pre-Anesthetic Assessment Pre-Anesthetic Assessment: Height/Weight: Height 1.57 m Weight 114.305 kg Proposed Procedure: Operation Date: 04/25/19 07:30 Proposed Procedures p EGD/COLON(Not Applicable) - Alonso aLra MD s Colonoscopy(Not Applicable) - Alonso Lara MD Was Beta Sharmin taken within 24 hours: Yes (1899 ) Last intake: 04/24 Social: Social History: Alcohol (occasional binge ) and Tobacco (2pk day ) Exam: Pre-Anes Outpt Exam: alert and oriented x 3 Airway: Submandibular: WNL Cervical ROM: WNL MP: 2 Dentition: Other (poor) History/ROS: No significant history except as noted and No significant complaints Pulmonary: Pulmonary: NIEVES CV/HEM: CV/HEM: Afib, CAD, CHF and HTN Comments: stress test last year w/ Renny. : : None reported Hepatic: Hepatic: None reported GI: GI: None reported Metabolic: Metabolic: Hyperlipidemia and Morbid obesity Musc/skel: Musc/skel: Lower Back Pain and OA/DJD Neuropsych: Neuropsych: None reported Anesthetic Plan: ASA status: 3 Anesthesia: MAC PFSH Anesthesia PFSH: Social History Smoking and tobacco status: current every day smoker cigarettes Packs smoked per day: 2 Alcohol intake: current Alcohol intake frequency: 3 or more drinks per day Marital status: Current occupational status: retired Data Anesthesia Cardiac Studies: No Data to Display
--- NOTE | 2019-04-25 07:00 | W.PM.OPSUD ---
Surgery/Procedure H&P Update DATE OF PROCEDURE: April 25, 2019 DATE H&P PERFORMED: 04/15/19 H&P UPDATE INFORMATION: I have reviewed H&P completed within last 30 days, I have examined patient prior to procedure and No changes to prior documentation PLANNED PROCEDURE: Operation Date: 04/25/19 07:30 Proposed Procedures p EGD/COLON(Not Applicable) - Alonso Lara MD s Colonoscopy(Not Applicable) - Alonso Lara MD
[2019-04-25] MEDS: ipratropium 0.5 mg/2.5 mL Neb INHALATION (07:14)
[2019-04-25] MEDS: sodium chloride 0.9% 1,000 ML 30 ML (07:30)
[2019-04-25 07:31] VITALS: PULSE 101; RESP 98
[2019-04-25] MEDS: levalbuterol 0.63 mg/3 mL Neb INHALATION (07:31)
[2019-04-25 07:38] VITALS: PULSE 107
[2019-04-25 07:59] LABS: Basophils # 0.1 10^3/uL (0.0-0.1); Basophils % 0.8 %; Eosinophils # 0.1 10^3/uL (0.0-0.8); Eosinophils % 2.2 %; Hematocrit 30.8 % (37.0-47.0); Lymphocytes # 1.1 10^3/uL (0.8-4.8); Lymphocytes % 18.7 %; Mean Corpuscular HGB Conc 29.2 g/dL (30.0-36.0); Mean Corpuscular Hemoglobin 22.3 pg (28.0-34.0); Mean Corpuscular Volume 76.4 fL (81-99); Mean Platelet Volume 10.2 fL (7.4-10.4); Monocytes # 0.3 10^3/uL (0.2-0.9); Monocytes % 5.7 %; Neutrophils # 4.3 10^3/uL (1.8-7.7); Neutrophils % 72.3 %; Nucleated Red Blood Cells % 0 %; Platelet Count 350 10^3/cmm (130-400); Red Blood Count 4.03 10^6/uL (4.1-5.3); Red Cell Distribution Width 20.6 % (12.1-15.1)
[2019-04-25 08:10] LABS: Blood Urea Nitrogen 9 mg/dL (8-23); Carbon Dioxide 27 mmol/L (22-29); Chloride 97 mmol/L (98-107); Glucose 125 mg/dL (65-115); Osmolality Calculated 283 mOsm/kg (285-295); Sodium 138 mmol/L (136-145)
[2019-04-25 09:30] VITALS: BP 100/62; PULSE 113; RESP 16; TEMP 36.4; O2SAT 99
[2019-04-25 09:50] VITALS: BP 98/68; PULSE 108; RESP 18; O2SAT 97
--- NOTE | 2019-04-25 10:00 | ANE.PACU2 ---
 Inpatient post-anesthesia follow up: Airway intact: Yes Vital signs: Temperature 97.5 F Pulse Rate 108 Respiratory Rate 18 Blood Pressure 98/68 Pulse Oximetry 97 Oxygen Delivery Me thod Room Air Oxygen Flow Rate 10 Fraction of Inspir ed Oxygen Hydration adequate: Yes Nausea and vomiting: No
== END 2019-04-25 10:08 | disposition home or self-care (01) ==
PROVIDERS: Anesthesiology; Family Provider Family Medicine; PCP Family Medicine; Visit Provider Surgery
PROC: 0DJ08ZZ Inspection of Upper Intestinal Tract, Via Natural or Artificial Opening Endoscopic (ICD-10-PCS; CPT 43235; principal; 2019-04-25 07:30)
PROC: 0DJD8ZZ Inspection of Lower Intestinal Tract, Via Natural or Artificial Opening Endoscopic (ICD-10-PCS; CPT 45378; 2019-04-25 07:30)
DX: K92.1 Melena (principal); D62 Acute posthemorrhagic anemia; K50.90 Crohn's disease, unspecified, without complications; Z79.01 Long term (current) use of anticoagulants; I48.20 Chronic atrial fibrillation, unspecified; E78.5 Hyperlipidemia, unspecified; F17.210 Nicotine dependence, cigarettes, uncomplicated; K57.30 Diverticulosis of large intestine without perforation or abscess without bleeding; K64.8 Other hemorrhoids; I25.10 Atherosclerotic heart disease of native coronary artery without angina pectoris; I11.0 Hypertensive heart disease with heart failure; I50.9 Heart failure, unspecified
CPT/HCPCS: 12345; 36415; 43239; 80048; 85025; 88305; 94640; G0121; J2704; J7030; J7611; J7614; J7644

== ENCOUNTER → 2019-04-26 11:37 | Outpatient (BNVA) | payer MEDICARE, SELFPAY | PROVIDERS: Family Provider Family Medicine; PCP Family Medicine; Visit Provider Family Medicine | DX: E87.6 Hypokalemia (principal); D62 Acute posthemorrhagic anemia | CPT/HCPCS: 80053; 85025 ==

== ENCOUNTER → 2019-05-06 10:48 | Outpatient (BNVA) | payer MEDICARE, SELFPAY | PROVIDERS: Family Provider Family Medicine; PCP Family Medicine; Visit Provider Family Medicine | DX: D62 Acute posthemorrhagic anemia (principal); G62.9 Polyneuropathy, unspecified; I50.9 Heart failure, unspecified; E55.9 Vitamin D deficiency, unspecified; M53.3 Sacrococcygeal disorders, not elsewhere classified | CPT/HCPCS: 85610 ==

== ENCOUNTER → 2019-05-13 10:46 | Outpatient (BNVA) | payer MEDICARE, SELFPAY | PROVIDERS: Family Provider Family Medicine; PCP Family Medicine; Visit Provider Family Medicine | DX: D69.9 Hemorrhagic condition, unspecified (principal) | CPT/HCPCS: 85610 ==

== ENCOUNTER → 2019-05-27 11:35 | Outpatient (BNVA) | payer MEDICARE, SELFPAY | PROVIDERS: Family Provider Family Medicine; PCP Family Medicine; Visit Provider Family Medicine | DX: I48.20 Chronic atrial fibrillation, unspecified (principal); E87.6 Hypokalemia | CPT/HCPCS: 85610 ==

== ENCOUNTER → 2019-06-06 10:44 | Outpatient (BNVA) | payer MEDICARE, SELFPAY | PROVIDERS: Family Provider Family Medicine; PCP Family Medicine; Visit Provider Family Medicine | DX: D69.9 Hemorrhagic condition, unspecified (principal) | CPT/HCPCS: 85610 ==

== ENCOUNTER → 2019-06-18 10:24 | Outpatient (BNVA) | payer MEDICARE, SELFPAY | PROVIDERS: Family Provider Family Medicine; PCP Family Medicine; Visit Provider Family Medicine | DX: I48.20 Chronic atrial fibrillation, unspecified (principal); E87.6 Hypokalemia; D62 Acute posthemorrhagic anemia | CPT/HCPCS: 80048; 85025; 85610 ==

== ENCOUNTER → 2019-06-26 10:46 | Outpatient (BNVA) | payer MEDICARE, SELFPAY | PROVIDERS: Family Provider Family Medicine; PCP Family Medicine; Visit Provider Family Medicine | DX: I48.91 Unspecified atrial fibrillation (principal); D62 Acute posthemorrhagic anemia; E78.5 Hyperlipidemia, unspecified | CPT/HCPCS: 80061; 80076; 85610 ==

== ENCOUNTER → 2019-07-04 10:26 | Outpatient (BNVA) | payer MEDICARE, SELFPAY | PROVIDERS: Family Provider Family Medicine; PCP Family Medicine; Visit Provider Family Medicine | DX: D69.9 Hemorrhagic condition, unspecified (principal) | CPT/HCPCS: 85610 ==

== ENCOUNTER → 2019-07-17 10:30 | Outpatient (BNVA) | payer MEDICARE, SELFPAY | PROVIDERS: Family Provider Family Medicine; PCP Family Medicine; Visit Provider Family Medicine | DX: Z79.01 Long term (current) use of anticoagulants (principal) | CPT/HCPCS: 85610 ==

== ENCOUNTER → 2019-07-25 10:23 | Outpatient (BNVA) | payer MEDICARE, SELFPAY | PROVIDERS: Family Provider Family Medicine; PCP Family Medicine; Visit Provider Family Medicine | DX: I48.20 Chronic atrial fibrillation, unspecified (principal); Z79.01 Long term (current) use of anticoagulants | CPT/HCPCS: 85610 ==

== ENCOUNTER → 2019-08-08 11:16 | Outpatient (BNVA) | payer MEDICARE, SELFPAY | PROVIDERS: Family Provider Family Medicine; PCP Family Medicine; Visit Provider Family Medicine | DX: Z79.01 Long term (current) use of anticoagulants (principal); I48.20 Chronic atrial fibrillation, unspecified; M53.3 Sacrococcygeal disorders, not elsewhere classified; I80.202 Phlebitis and thrombophlebitis of unspecified deep vessels of left lower extremity | CPT/HCPCS: 85610 ==

== ENCOUNTER → 2019-08-30 11:16 | Outpatient (BNVA) | payer MEDICARE, SELFPAY | PROVIDERS: Family Provider Family Medicine; PCP Family Medicine; Visit Provider Family Medicine | DX: Z79.01 Long term (current) use of anticoagulants (principal) | CPT/HCPCS: 85610 ==

== ENCOUNTER → 2019-09-17 11:38 | Outpatient (BNVA) | payer MEDICARE, SELFPAY | PROVIDERS: Family Provider Family Medicine; PCP Family Medicine; Visit Provider Family Medicine | DX: Z79.01 Long term (current) use of anticoagulants (principal) | CPT/HCPCS: 85610 ==

== ENCOUNTER → 2019-10-09 11:58 | Outpatient (BNVA) | payer MEDICARE, SELFPAY | PROVIDERS: Family Provider Family Medicine; PCP Family Medicine; Visit Provider Family Medicine | DX: I48.20 Chronic atrial fibrillation, unspecified (principal); R30.0 Dysuria; M54.5 Low back pain | CPT/HCPCS: 81003; 85610 ==

== ENCOUNTER 2019-10-12 11:41 | Inpatient (IN) | payer MEDICARE, SELFPAY ==
[2019-10-12] VITALS (8 sets, daily range): BP systolic 96–128; BP diastolic 48–92; PULSE 105–125; RESP 18–24; TEMP 36.9–37.2; O2SAT 90–97
--- NOTE | 2019-10-12 11:54 | XRR_ITS ---
PROCEDURE INFORMATION: Exam: XR Chest, 1 View Exam date and time: 10/12/2019 11:57 AM Age: 73 years old Clinical indication: Cough and shortness of breath TECHNIQUE: Imaging protocol: XR of the chest Views: 1 view. COMPARISON: CR XR chest 1V portable [id number] 04/02/2019 2:59 PM FINDINGS: Lungs: Stable right calcified hilar nodes and/or mediastinal nodes and/or lung nodules consistent with old granulomatous disease. Mildly hyperaerated lungs consistent with deep inspiratory effort vs reactive airway disease vs mild COPD . Pleural space: Unremarkable. No pleural effusion. No pneumothorax. Heart/Mediastinum: Unremarkable. No cardiomegaly. Bones/joints: Moderate thoracic spondylosis. XR/XR chest 1V portable [id number] IMPRESSION: Mildly hyperaerated lungs consistent with deep inspiratory effort vs reactive airway disease vs mild COPD .
--- NOTE | 2019-10-12 11:56 | ECG_ITS ---
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 Measurements Intervals K[place]miller Rate: 123 P: MN: -1 QRS: -65 QRSD: 133 T: 119 QT: 330 QTc: 473 Interpretive Statements ATRIAL FIBRILLATION WITH RAPID VENTRICULAR RESPONSE LEFT AXIS DEVIATION [QRS AXIS < -30] INTRAVENTRICULAR CONDUCTION DELAY [130+ ms QRS DURATION] ANTEROSEPTAL MYOCARDIAL INFARCTION , OF INDETERMINATE AGE [40+ ms Q WAVE IN V1-V4] No previous ECG available for comparison Electronically Signed On 10-13-2019 8:44:09 CDT by Мария Snow M.D. [id number]
--- NOTE | 2019-10-12 12:00 | W.ED.SOB ---
HPI - SOB/Dyspnea General: Chief Complaint: Shortness of Breath/Dyspnea Stated Complaint: short of breath / weakness Time Seen by Provider: 10/12/19 11:42 History of Present Illness: HPI Narrative: 73-year-old female comes in complaining of difficulty breathing stated started about 2 days ago she has had no fever she is usually not on oxygen at home when she came in she was on 4 L we turned her down to 2 she maintained her sats 9899% such that it off completely she gets in the low 90s then with occasional rare dips into the upper 80s. But she not reporting any shortness of breath. She was seen 3 days ago at our primary care doctors and started on Cipro for a UTI she is not had any fever she denies flank pain. She not had any nausea vomiting or diarrhea no chest pain or abdominal pain. She has noticed the rapid heart rate although she does not report any palpitations the last few days. She does still smoke. MD elicited complaint: shortness of breath Pertinent past history: COPD Onset (ago): day(s) (3) Context: recent illness Timing: intermittent Severity: moderate Exacerbating factors: nothing Relieving factors: nothing Known history of: COPD and other (Atrial fibrillation) Associated symptoms: Reports cough and palpitations; Deny abdominal pain, chest congestion, chest pain, diaphoresis, dizziness, extremity pain, fever(s), hemoptysis, lightheadedness, myalgias, nausea, orthopnea, syncope or vomiting Treatment prior to arrival: oxygen Review of Systems Const: Denies: fever(s) or diaphoresis ENMT: Denies: throat pain, ear or mastoid pain, nasal discharge or nasal congestion Card: Reports: palpitations; Denies: chest pain, lightheadedness, syncope or orthopnea Resp: Denies: hemoptysis or chest congestion GI: Denies: abdominal pain, nausea or vomiting : Denies: flank pain, difficulty voiding, dysuria, urinary frequency or urinary urgency Musc: Denies: extremity pain Skin/Breast: Denies: rash or pruritus Neuro: Denies: dizziness PFSH ED PFSH: Medical History Alcohol consumption binge drinking Atrial fibrillation, chronic Benign essential HTN CHF (congestive heart failure) Dyslipidemia Dyslipidemia (high LDL; low HDL) Hyperglycemia Patient declined Hypertension Insomnia Lower extremity edema Neuropathy RLS (restless legs syndrome) Smoking addiction Vitamin D deficiency Surgical History H/O esophagogastroduodenoscopy 04/25/2019: Healed duodenal ulcer H/O tubal ligation History of cataract extraction (~2018) History of colon surgery History of hysterectomy History of knee replacement (~2006) right knee Status post colonoscopy 04/25/2019: Diverticulosis and internal hemorrhoids Family History Mother Gianna Gonzalez? syndrome Father Alcoholism Social History Smoking and tobacco status: current every day smoker cigarettes Packs smoked per day: 2 Alcohol intake: current Alcohol intake frequency: 3 or more drinks per day Desire information about alcohol rehabilitation?: Yes (has not drank in 3 weeks) Marital status: Current occupational status: retired Physical Exam Const: COMMON NORMALS: no acute distress GENERAL APPEARANCE: cooperative and comfortable ORIENTATION/CONSCIOUSNESS: Yes awake, Yes oriented to person, Yes oriented to place and Yes oriented to time HENMT: COMMON NORMALS: normocephalic, atraumatic and hearing grossly normal bilaterally HEAD & SCALP: normocephalic and atraumatic Eye: COMMON NORMALS: Equal, round and reactive pupils present, EOMs intact bilaterally, conjunctivae normal and no scleral icterus CONJUNCTIVA: Yes conjunctivae normal PUPIL: Yes Equal, round and reactive pupils present Neck/C-Spine: COMMON NORMALS: full ROM, no lymphadenopathy, supple and no JVD Lymph: LYMPHATIC: no lymphadenopathy noted and no lymphedema noted Resp: AUSCULTATION: wheezes expiratory wheezes and throughout Cardio: COMMON NORMALS: no JVD, regular rate, regular rhythm and No murmurs present (Cardio) RATE: regular rate RHYTHM: regular rhythm GI: COMMON NORMALS: Soft to palpation and No hepatosplenomegaly present AUSCULTATION: Yes normoactive bowel sounds PALPATION: Yes Soft to palpation, No Tenderness to palpation present (GI), No Guarding due to palpation present (GI) and Yes No hepatosplenomegaly present Extremity: COMMON NORMALS: normal to inspection, capillary refill normal, no clubbing, cyanosis or edema, no calf tenderness and no pedal edema Neuro: SENSORIUM/ORIENTATION: Yes oriented to person, Yes oriented to place and Yes oriented to time Skin: COMMON NORMALS: no rashes or lesions noted GENERAL SKIN EXAM: no rashes or lesions noted Course Vital Signs: Vital signs: Vital Signs Temperature 99.0 F 10/12/19 11:50 Pulse Rate 125 H 10/12/19 13:20 Respiratory Rate 20 H 10/12/19 13:20 Blood Pressure 99/72 10/12/19 13:20 Pulse Oximetry 97 10/12/19 13:20 MDM - SOB/Dyspnea MDM Narrative: Medical decision making narrative: Patient complaining of shortness of breath came in was found to be in A. fib with RVR started on Cardizem did require 2 L by nasal cannula of oxygen. She normally is not on any oxygen. Rapid COVID test is negative discussed with Dr. Jenkins will admit to stepdown. Lab Data: Labs: Lab Results 10/12/19 10/12/19 10/12/19 Range/Units 12:49 13:00 13:00 WBC 2.9 L (4.0-10.0) 10^3/ uL RBC 3.60 L (4.1-5.3) 10^6/u L Hgb 9.4 L (11.5-15.3) g/dL Hct 30.8 L (37.0-47.0) % MCV 85.6 (81-99) fL MCH 26.1 L (28.0-34.0) pg MCHC 30.5 (30.0-36.0) g/dL RDW 27.4 H (12.1-15.1) % Plt Count 47 L (130-400) 10^3/c mm MPV 10.8 H (7.4-10.4) fL Lymph % (Auto) Not Reportable Luce % (Auto) Not Reportable Neut # (Auto) Corporate Consultant Lymph # (Auto) Not Reportable Luce # (Auto) Not Reportable Total Counted 100 (0-100) Atypical Lymphs % 2.0 (0-5) % Absolute Neutrophi ls 0.6 L* (1.4-6.5) 10^3/c mm Segmented Neutroph ils 19 % Abs Segm Neuts (Ma n) 0.6 L (1.6-7.1) 10/cmm Band Neutrophils 0.0 % Abs Band Neuts (Ma n) 0.0 (0.0-1.2) 10^3/c mm Absolute Lymphocyt es 1.4 (1.2-3.4) 10^3/c mm Lymphocytes (Manua l) 46 % Monocytes (Manual) 30.0 % Absolute Monocytes 0.9 H (0.1-0.6) 10^3/c mm Eosinophils (Manua l) 2 % Absolute Eosinophi ls 0.0 (0.0-0.7) 10^3/c mm Basophils (Manual) 1.0 % Absolute Basophils 0.0 (0.0-0.2) 10^3/c mm Platelet Estimate Decreased L (Normal) Poikilocytosis 1+ H Anisocytosis 2+ H Macrocytosis Trace Ovalocytes 1+ H PT 37.80 H (12.1-14.9) SECO NDS INR 3.66 H (0.8-1.2) APTT 61.7 H (23.9-36.7) SECO NDS Specimen Type Arterial Sample Site Brachial, right ABG pH 7.41 (7.35-7.45) ABG pCO2 32.0 L (35-45) mmHg ABG pO2 61.0 L (80.0-100.0) mmH g ABG HCO3 20.3 L (22-26) mmol/L ABG Base Excess -3.7 L (-2.0-2.0) mmol/ L Gopi Test Pos Hematocrit 30.6 L (37-47) % Hgb O2 Saturation 88.9 L (95-100) % Carboxyhemoglobin 2.2 (0.4-20.1) %THgb Methemoglobin 0.7 (0.4-1.5) % Total Hemoglobin 10.0 L (12-16) g/dL O2 Delivery Device Nc FiO2 21.0 % Manager Of Environmental Services ID Bd Sodium (136-145) mmol/L Potassium (3.5-5.1) mmol/L Chloride (98-107) mmol/L Carbon Dioxide (22-29) mmol/L Anion Gap (5-19) BUN (8-23) mg/dL Creatinine (0.5-0.9) mg/dL GFR Calculation Glucose (65-115) mg/dL Calculated Osmolal ity (285-295) mOsm/k g Calcium (8.5-10.5) mg/dL Total Bilirubin (0.15-1.2) mg/dL AST (0-32) U/L ALT (0-33) U/L Alkaline Phosphata se (35-105) IU/L Troponin T Baselin e (0-10) ng/L Troponin T 120 Min wiyot (0-10) ng/L Delta Troponin T (0-10) ABS# Total Protein (6.6-8.7) g/dL Albumin (3.5-5.2) g/dL Globulin (1.3-4.6) g/dL SARS-CoV-2 Ag (Rap id) (Negative) 10/12/19 10/12/19 10/12/19 Range/Units 13:00 13:00 15:02 WBC (4.0-10.0) 10^3/ uL RBC (4.1-5.3) 10^6/u L Hgb (11.5-15.3) g/dL Hct (37.0-47.0) % MCV (81-99) fL MCH (28.0-34.0) pg MCHC (30.0-36.0) g/dL RDW (12.1-15.1) % Plt Count (130-400) 10^3/c mm MPV (7.4-10.4) fL Lymph % (Auto) Luce % (Auto) Neut # (Auto) Lymph # (Auto) Luce # (Auto) Total Counted (0-100) Atypical Lymphs % (0-5) % Absolute Neutrophi ls (1.4-6.5) 10^3/c mm Segmented Neutroph ils % Abs Segm Neuts (Ma n) (1.6-7.1) 10/cmm Band Neutrophils % Abs Band Neuts (Ma n) (0.0-1.2) 10^3/c mm Absolute Lymphocyt es (1.2-3.4) 10^3/c mm Lymphocytes (Manua l) % Monocytes (Manual) % Absolute Monocytes (0.1-0.6) 10^3/c mm Eosinophils (Manua l) % Absolute Eosinophi ls (0.0-0.7) 10^3/c mm Basophils (Manual) % Absolute Basophils (0.0-0.2) 10^3/c mm Platelet Estimate (Normal) Poikilocytosis Anisocytosis Macrocytosis Ovalocytes PT (12.1-14.9) SECO NDS INR (0.8-1.2) APTT (23.9-36.7) SECO NDS Specimen Type Sample Site ABG pH (7.35-7.45) ABG pCO2 (35-45) mmHg ABG pO2 (80.0-100.0) mmH g ABG HCO3 (22-26) mmol/L ABG Base Excess (-2.0-2.0) mmol/ L Gopi Test Hematocrit (37-47) % Hgb O2 Saturation (95-100) % Carboxyhemoglobin (0.4-20.1) %THgb Methemoglobin (0.4-1.5) % Total Hemoglobin (12-16) g/dL O2 Delivery Device FiO2 % Manager Of Environmental Services ID Sodium 127 L (136-145) mmol/L Potassium 4.3 (3.5-5.1) mmol/L Chloride 94 L (98-107) mmol/L Carbon Dioxide 22 (22-29) mmol/L Anion Gap 15.3 (5-19) BUN 14 (8-23) mg/dL Creatinine 1.6 H (0.5-0.9) mg/dL GFR Calculation Not Reportable Glucose 107 (65-115) mg/dL Calculated Osmolal ity 261 L (285-295) mOsm/k g Calcium 9.1 (8.5-10.5) mg/dL Total Bilirubin 0.3 (0.15-1.2) mg/dL AST 10 (0-32) U/L ALT < 5 (0-33) U/L Alkaline Phosphata se 111 H (35-105) IU/L Troponin T Baselin e 16 H (0-10) ng/L Troponin T 120 Min wiyot 14.35 H (0-10) ng/L Delta Troponin T -1.65 L (0-10) ABS# Total Protein 6.9 (6.6-8.7) g/dL Albumin 3.3 L (3.5-5.2) g/dL Globulin 3.6 (1.3-4.6) g/dL SARS-CoV-2 Ag (Rap id) (Negative) 10/12/19 Range/Units 15:24 WBC (4.0-10.0) 10^3/ uL RBC (4.1-5.3) 10^6/u L Hgb (11.5-15.3) g/dL Hct (37.0-47.0) % MCV (81-99) fL MCH (28.0-34.0) pg MCHC (30.0-36.0) g/dL RDW (12.1-15.1) % Plt Count (130-400) 10^3/c mm MPV (7.4-10.4) fL Lymph % (Auto) Luce % (Auto) Neut # (Auto) Lymph # (Auto) Luce # (Auto) Total Counted (0-100) Atypical Lymphs % (0-5) % Absolute Neutrophi ls (1.4-6.5) 10^3/c mm Segmented Neutroph ils % Abs Segm Neuts (Ma n) (1.6-7.1) 10/cmm Band Neutrophils % Abs Band Neuts (Ma n) (0.0-1.2) 10^3/c mm Absolute Lymphocyt es (1.2-3.4) 10^3/c mm Lymphocytes (Manua l) % Monocytes (Manual) % Absolute Monocytes (0.1-0.6) 10^3/c mm Eosinophils (Manua l) % Absolute Eosinophi ls (0.0-0.7) 10^3/c mm Basophils (Manual) % Absolute Basophils (0.0-0.2) 10^3/c mm Platelet Estimate (Normal) Poikilocytosis Anisocytosis Macrocytosis Ovalocytes PT (12.1-14.9) SECO NDS INR (0.8-1.2) APTT (23.9-36.7) SECO NDS Specimen Type Sample Site ABG pH (7.35-7.45) ABG pCO2 (35-45) mmHg ABG pO2 (80.0-100.0) mmH g ABG HCO3 (22-26) mmol/L ABG Base Excess (-2.0-2.0) mmol/ L Gopi Test Hematocrit (37-47) % Hgb O2 Saturation (95-100) % Carboxyhemoglobin (0.4-20.1) %THgb Methemoglobin (0.4-1.5) % Total Hemoglobin (12-16) g/dL O2 Delivery Device FiO2 % Manager Of Environmental Services ID Sodium (136-145) mmol/L Potassium (3.5-5.1) mmol/L Chloride (98-107) mmol/L Carbon Dioxide (22-29) mmol/L Anion Gap (5-19) BUN (8-23) mg/dL Creatinine (0.5-0.9) mg/dL GFR Calculation Glucose (65-115) mg/dL Calculated Osmolal ity (285-295) mOsm/k g Calcium (8.5-10.5) mg/dL Total Bilirubin (0.15-1.2) mg/dL AST (0-32) U/L ALT (0-33) U/L Alkaline Phosphata se (35-105) IU/L Troponin T Baselin e (0-10) ng/L Troponin T 120 Min wiyot (0-10) ng/L Delta Troponin T (0-10) ABS# Total Protein (6.6-8.7) g/dL Albumin (3.5-5.2) g/dL Globulin (1.3-4.6) g/dL SARS-CoV-2 Ag (Rap id) Negative (Negative) Discharge Plan Discharge Patient Disposition: Admitted As Inpatient Clinical Impression: Atrial fibrillation with rapid ventricular response, Acute hyponatremia, Acute kidney injury Condition: Stable Referrals: Aftab Gutierres DO [Primary Care Provider] - Coding Level of Care Code ED Fermentation Manager for Chg Fwd Exam Comprehensive
[2019-10-12 12:59] LABS: ABG PH Result 7.41 (7.35-7.45); Arterial Blood Gas Hematocrit 30.6 % (37-47); Base Excess ABG -3.7 mmol/L (-2.0-2.0); Blood Gas Allen Test Pos; Blood Gas Operator Identificat BD; Blood Gas Sample Site Brachial, right; Blood Gas Sample Type Arterial; Carboxyhemoglobin 2.2 %THgb (0.4-20.1); HCO3 ABG 20.3 mmol/L (22-26); HGB O2 Sat 88.9 % (95-100); Methemoglobin 0.7 % (0.4-1.5)
[2019-10-12 13:06] LABS: Hematocrit 30.8 % (37.0-47.0); Hemoglobin 9.4 g/dL (11.5-15.3); Mean Corpuscular HGB Conc 30.5 g/dL (30.0-36.0); Mean Corpuscular Hemoglobin 26.1 pg (28.0-34.0); Mean Corpuscular Volume 85.6 fL (81-99); Mean Platelet Volume 10.8 fL (7.4-10.4); Platelet Count 47 10^3/cmm (130-400); Red Cell Distribution Width 27.4 % (12.1-15.1); White Blood Count 2.9 10^3/uL (4.0-10.0)
[2019-10-12 13:21] LABS: INR 3.66 (0.8-1.2)
[2019-10-12 13:22] LABS: Partial Thromboplastin Time 61.7 SECONDS (23.9-36.7)
[2019-10-12 13:33] LABS: Slide Review Slide Review Perform
[2019-10-12 13:39] LABS: Absolute Segmented Neutrophil 0.6 10/cmm (1.6-7.1); Eosinophils 2 %; Lymphocytes 46 %; Lymphocytes Absolute 1.4 10^3/cmm (1.2-3.4); Monocytes Absolute 0.9 10^3/cmm (0.1-0.6); Segmented Neutrophils 19 %; Total Cells Counted 100 (0-100)
[2019-10-12 13:40] LABS: Alanine Aminotransferase < 5 U/L (0-33); Albumin Level 3.3 g/dL (3.5-5.2); Alkaline Phosphatase 111 IU/L (35-105); Anion Gap 15.3 (5-19); Aspartate Amino Transferase 10 U/L (0-32); Blood Urea Nitrogen 14 mg/dL (8-23); Calcium 9.1 mg/dL (8.5-10.5); Carbon Dioxide 22 mmol/L (22-29); Chloride 94 mmol/L (98-107); Globulin 3.6 g/dL (1.3-4.6); Glucose 107 mg/dL (65-115); Osmolality Calculated 261 mOsm/kg (285-295); Poikilocytosis 1+; Potassium 4.3 mmol/L (3.5-5.1); Sodium 127 mmol/L (136-145); Total Bilirubin 0.3 mg/dL (0.15-1.2); Total Protein 6.9 g/dL (6.6-8.7)
[2019-10-12 13:41] LABS: Anisocytosis 2+; Ovalocytes 1+; Troponin(5th) Baseline 16 ng/L (0-10)
[2019-10-12 13:42] LABS: Macrocytosis Trace; Platelet Estimate Decreased (Normal)
--- NOTE | 2019-10-12 13:56 | ECG_ITS ---
[facility] Test Date: 2019-10-12 Pat Name: Jazmín Quinteros Department: Room: Gender: Female Motion Picture Director: : 1945 Requested By: Elvis Mejia Order Number: [id number] Martinez MD: Мария Snow M.D. Measurements Intervals [place] Rate: 125 P: MT: -1 QRS: -73 QRSD: 125 T: 127 QT: 325 QTc: 470 Interpretive Statements ATRIAL FIBRILLATION WITH RAPID VENTRICULAR RESPONSE LEFT AXIS DEVIATION [QRS AXIS < -30] ANTEROSEPTAL MYOCARDIAL INFARCTION , OF INDETERMINATE AGE [40+ ms Q WAVE IN V1-V4] No previous ECG available for comparison Electronically Signed On 10-13-2019 9:13:18 CDT by Мария Snow M.D. [id number]
[2019-10-12 13:59] LABS: Oxygen Device NC
[2019-10-12 14:04] LABS: Absolute Neutrophil 0.6 10^3/cmm (1.4-6.5)
[2019-10-12 15:49] LABS: Troponin 5 2HR 14.35 ng/L (0-10)
[2019-10-12 15:53] LABS: Troponin 5 2HR Delta -1.65 ABS# (0-10)
[2019-10-12 16:03] LABS: SARS Covid-2 Antigen Negative (Negative)
--- NOTE | 2019-10-12 16:45 | CTR_ITS ---
PROCEDURE INFORMATION: Exam: CT Chest Without Contrast Exam date and time: 10/12/2019 5:10 PM Age: 73 years old Clinical indication: Orthopnea (sob when lying down); Patient HX: C/O SOB afib; Additional info: Copd/pna TECHNIQUE: Imaging protocol: Computed tomography of the chest without contrast. Radiation optimization: All CT scans at this facility use at least one of these dose optimization techniques: automated exposure control; mA and/or kV adjustment per patient size (includes targeted exams where dose is matched to clinical indication); or iterative reconstruction. COMPARISON: CR (CHEST, ) 10/12/2019 12:05 PM RADIATION DOSE METRICS: Total DLP (mGy-cm): 916.22 FINDINGS: Lungs: Unremarkable. No consolidation. No masses. Pleural space: Unremarkable. No pneumothorax. No pleural effusion. Heart: Mild calcified coronary artery disease. Aorta: Unremarkable. No aortic aneurysm. Great vessels off aortic arch: Calcification of the thoracic aorta and/or great vessels consistent with atherosclerotic vessel disease. Lymph nodes: Calcified right hilar nodes and/or mediastinal nodes and/or lung granulomas consistent with old granulomatous disease. Spleen: Calcified splenic granulomas. 13.9 cm mild splenomegaly. Bones/joints: Moderate thoracic spondylosis. Soft tissues: Unremarkable. CT/CT chest wo con [id number] IMPRESSION: 1. Mild calcified coronary artery disease. 2. 13.9 cm mild splenomegaly. Radiation Dose CTDIVOL = (mGy): DLP = 916.22 (mGy-cm)
--- NOTE | 2019-10-12 16:52 | P.HP_ITS ---
Providers/Chief Complaint Primary Care Provider: Aftab Gutierres DO Chief Complaint: short of breath / weakness History of Present Illness Jazmín Quinteros is a 73 year old female with past medical history of atrial fibrillation, chronic alcohol consumption with binge drinking, CHF most likely diastolic, dyslipidemia, hyperglycemia, hypertension, restless leg syndrome, chronic smoker, found to have healed duodenal ulcer on EGD done in April 2019 presented to the ER today from [place] for shortness of breath. Patient states around 10 days ago she went to her primary care physician because of lower belly heaviness for which she thought to be because of UTI and was started on ciprofloxacin. Since Monday(today Monday) she started having worsening shortness of breath getting exacerbated by minimal exertion. She denies of having any orthopnea more than usual, proximal nocturnal dyspnea. At present she can only walk up to the bathroom before getting short of breath. She is also been complaining of dizziness on standing up from lying down position. She states she get dizzy whenever she would stand up too quickly but has not had any falls. This has been going on for last 1 month. She denies of any nausea, vom iting, headache, dizziness. She denies of having any fever, flulike symptoms, exposure to COVID-19. She states she has not left [facility] in last 3 months because she is worried about COVID-19. She does states she is having more expectoration with cough these days and the color of expectoration is different. Her lab work in the ER showed white count of 2.9, hemoglobin of 9.4, platelet of 47,000, absolute neutrophils of 0.6, INR of 3.6, ABG showing PCO2 32, PO2 of 61, sodium of 127, chloride of 94, creatinine of 1.6,-phosphatase of 111, baseline troponin of 16 with delta of 1.6 -2 hours with UA 2+ positive for blood, 3+ leuk esterase with chest x-ray showing mild hyperinflated lungs. In the ER she was found to be in atrial fibrillation with RVR with heart rate going up to 140s for which she was started on Cardizem drip. On my evaluation patient is at Cardizem drip of 7.5 with heart rate ranging between 105 215 bpm with saturation of 95% on room air. Review of Systems General: Reports: 10 or more systems reviewed and unremarkable except in HPI and below Const: Denies: fever(s), chills, body aches, change in appetite, change in weight, malaise, night sweats, diaphoresis, change in sleep pattern, daytime sleepiness or snoring Eyes: Denies: change in vision, blurry vision, photophobia, eye discomfort or eye discharge ENMT: Denies: throat pain, enlarged tonsils, hoarseness, mouth pain, oral sores, dry mouth, tinnitus, nasal congestion or post nasal drip Card: Reports: chest pain, palpitations, edema, swelling of feet/ankles, lightheadedness and dyspnea on exertion; Denies: irregular heart rhythm, syncope, pre-syncope, orthopnea, leg pain with exertion or acrocyanosis Resp: Reports: dyspnea, productive cough and wheezing; Denies: non-productive cough, stridor, pain on inspiration, change in phlegm color, hemoptysis or chest congestion GI: Reports: abdominal pain and nausea; Denies: vomiting, hematemesis, coffee ground emesis, dysphagia, heartburn, diarrhea, constipation, bloating, GI cramping, change in bowel habits, pain on defecation, hematochezia or melena : Reports: urinary frequency; Denies: flank pain, dysuria, urinary urgency, urinary hesitancy, nocturia or hematuria Musc: Denies: neck pain, back pain, extremity pain, joint pain, joint swelling, joint redness, joint stiffness or limited range of motion Neuro: Denies: headache(s), numbness in extremities, weakness in extremities, sensory changes, lack of coordination, difficulty walking, frequent falls, dizziness, vertigo, confusion, Slurred speech present, difficulty communicating thoughts or seizure-like activity Psych: Denies: anxiety, depression, mood swings, panic attacks, hopelessness or irritability Endo: Denies: polyuria, polydipsia, tired all the time, cold intolerance, ex cessive sweating, flushing or heat intolerance Ty/Lymph: Denies: easy bruising or easy bleeding All/Imm: Denies: tongue swelling, facial swelling or acute wheezing Medications/Allergies Home Medications Medication Instructions Recorded Confirmed Last Taken Type diphenhydramine HCl 25 mg capsule 25 mg PO Q6H PRN 04/02/19 10/12/19 10/11/19 History nitroglycerin 0.4 mg sublingual 0.4 mg SUBLINGUAL Q5M PRN 04/02/19 10/12/19 Unknown History tablet potassium chloride 10 mEq 60 meq PO DAILY #90 tab 04/24/19 10/12/19 10/12/19 Rx tablet,extended release nortriptyline 25 mg capsule 25 mg PO TID #270 cap 05/06/19 10/12/19 10/12/19 Rx ergocalciferol (vitamin D2) 1,250 1,250 mcg PO .weekly #20 cap 05/27/19 10/12/19 10/10/19 Rx mcg (50,000 unit) capsule folic acid 1 mg tablet 1 mg PO DAILY #30 tab 05/27/19 10/12/19 10/12/19 Rx diltiazem HCl 120 mg 120 mg PO BID #180 cap 07/30/19 10/12/19 10/12/19 Rx capsule,extended release 24 hr warfarin 3 mg tablet See Rx Instructions .ROUTE 09/10/19 10/12/19 10/12/19 Rx .COMPLEX #90 tab ibuprofen 600 mg tablet 600 mg PO Q8H PRN 09/23/19 10/12/19 10/11/19 History metoprolol tartrate 50 mg tablet 50 mg PO .at hs tab 09/23/19 10/12/19 10/11/19 History rosuvastatin 5 mg tablet 5 mg PO QDAY 09/23/19 10/12/19 10/12/19 History furosemide 40 mg tablet See Rx Instructions .ROUTE 09/24/19 10/12/19 10/12/19 Rx .COMPLEX #180 tab trazodone 100 mg tablet See Rx Instructions .ROUTE 09/30/19 10/12/19 10/11/19 Rx .COMPLEX #180 tab ciprofloxacin HCl 500 mg tablet 500 mg PO BID #20 tab 10/09/19 10/12/19 10/12/19 Rx Allergies Allergy/AdvReac Type Severity Reaction Status Date / Time meperidine [From Demerol] AdvReac Intermediate ADR-Itching Verified 10/12/19 13:34 PFSH Acute PFSH: Medical History (Updated 10/12/19 @ 17:20 by Ky Roberson MD) Alcohol consumption binge drinking Atrial fibrillation, chronic Benign essential HTN CHF (congestive heart failure) Dyslipidemia Dyslipidemia (high LDL; low HDL) Hyperglycemia Patient declined Hypertension Insomnia Lower extremity edema Neuropathy Right lumbar pain RLS (restless legs syndrome) Sacro-iliac pain Smoking addiction Vitamin D deficiency Surgical History H/O esophagogastroduodenoscopy 04/25/2019: Healed duodenal ulcer H/O tubal ligation History of cataract extraction (~2018) History of colon surgery History of hysterectomy History of knee replacement (~2006) right knee Status post colonoscopy 04/25/2019: Diverticulosis and internal hemorrhoids Family History Mother Gianna Gonzalez? syndrome Father Alcoholism Social History Smoking and tobacco status: current every day smoker cigarettes Packs smoked per day: 2 Alcohol intake: current Alcohol intake frequency: 3 or more drinks per day Desire information about alcohol rehabilitation?: Yes (has not drank in 3 weeks) Marital status: Current occupational status: retired Vitals/I&O/Wt Last Vital Signs Temp 99.0 F 10/12/19 11:50 Pulse 125 H 10/12/19 13:20 Resp 18 10/12/19 16:13 BP 128/92 10/12/19 16:13 Pulse Ox 90 10/12/19 16:13 Physical Exam Narrative: EXAM NARRATIVE: General: No acute distress, AO x3, morbidly obese HEENT: PERRLA, pupils bilaterally equal and reactive Chest: Normal vesicular breath sounds, no added sounds, equal good air entry bilaterally CVS: S1-S2 irregularly irregular, tachycardia, no murmurs, S3 gallop Abdomen: Soft, nontender, no organomegaly, bowel sounds present Neuro: No focal deficits, no facial deformity, AO x3, power 5/5 in all limbs Extremities: Bilateral venous stasis changes, bilateral pitting edema 1+ Data : 10/12/19 13:00 10/12/19 13:00 A&P Assessment and plan (1) Atrial fibrillation with rapid ventricular response: Status: Acute (2) Supratherapeutic INR: Status: Acute (3) Shortness of breath: Status: Acute (4) CHF (congestive heart failure): Status: Acute Qualifiers: Heart failure type: diastolic Heart failure chronicity: chronic Qualified Code(s): I50.32 - Chronic diastolic (congestive) heart failure (5) CAD (coronary artery disease): Status: Acute (6) Acute kidney injury: Status: Acute (7) Acute hyponatremia: Status: Acute (8) Thrombocytopenia: Status: Acute (9) Neutropenia: Status: Acute (10) Leukopenia: Status: Acute (11) Benign essential HTN: Status: Acute (12) Dyslipidemia (high LDL; low HDL): Status: Acute (13) Alcohol consumption binge drinking: Status: Acute (14) Smoking addiction: Status: Acute (15) Cystitis: Status: Acute Additional A&P Information Atrial fibrillation with rapid ventricular response: Patient is on Cardizem 120 mg at home along with metoprolol 50 mg nightly. At present patient is Cardizem drip. We will wean off Cardizem drip. We will transition over to oral Cardizem 60 mg every 6 hourly. Continue with metoprolol. Patient is on Coumadin at home. She states she takes 3 mg 7 days a week. For now we will hold off on Coumadin as her INR is supratherapeutic and she is thrombocytopenic. Supratherapeutic INR: Goal INR 2-2.5. Check INR daily. Shortness of breath: Patient is afebrile but does have leukopenia, thrombocytopenia, neutropenia which are all new. Chest x-ray not concerning for any infiltrate at present. Most likely because of COPD exacerbation. We will request for rapid COVID-[address] chest without contrast. DuoNeb's every 6 hour, budesonide twice daily for now. Oxygen supplementation keeping saturation over 90%. Check proBNP. Patient does have history of congestive heart failure in the past with significant diastolic type. Congestive heart failure: Last echocardiogram from August 2018 shows an EF of 65%, biatrial enlargement, moderate TR, PASP of 33 mmHg. Stress test done in August 2018 showed myocardial perfusion imaging revealing a small to moderate decrease to tracer uptake in RCA territory. EF 58%. Patient takes 80 mg Lasix at home daily. For now started on IV 40 mg twice daily. Pancytopenia: This is new. Baseline labs are within normal limits. Repeat labs to confirm the numbers. Check peripheral smear, vitamin B12, folate level, reticulocyte count. Patient does not give any known history of tick exposure but cannot rule out. Can be related to chronic alcoholism. Check tick panel, CT abdomen pelvis without contrast. On examination patient did not have any splenomegaly but cannot rule out. Neutropenic precautions at present. Cystitis: Patient is not giving any current history of dysuria. Did have UTI a week ago for which she was on ciprofloxacin. Given her current neutropenia we will check blood cultures, urine cultures. Start patient on Rocephin. RADHA: Most likely cardiorenal syndrome. Diuretics as above. Check urine lites, urine creatinine. Strict input output charting. Fluid restriction up to 1500 cc. Hyponatremia: Most likely hypervolemic hyponatremia. Continue to monitor sodiums daily for now. Patient does not have any stigmata of hyponatremia other than dizziness at present. Hypertension: Continue home dose of Cardizem, metoprolol. Goal blood pressure less than 140/90 mmHg with mean arterial pressures over 65. Patient is not in A. fib with RVR will check orthostatics. Anemia: Most recent EGD in April 25 showed healed duodenal ulcer. Hemoglobin 9.7 today. Could be dilutional. We will continue to monitor hemoglobin levels daily. Patient is not complaining of any black bowel movements for now. Protonix 40 mg daily for now. Chronic smoker: Discussed in detail with patient regarding need for smoking cessation. Chronic alcoholism: We will check alcohol levels. Patient states she has not had alcohol in some time. [facility] protocol. Oral folic acid and thiamine. Continue chronic medications like trazodone, folic acid. Full code. Cardiac diet. We will check lower limb Dopplers if negative for DVTs will start on SCDs, supratherapeutic INR. Attestations Medical Necessity Statement*: A. fib with RVR, pancytopenia with neutropenia, RADHA, Hyponatremia. Time Spent in Patient Care: Greater than 35 minutes (>than 50% of time spent in counselling and/or direct pt care on unit) . Coding Level of Care Code Acute Correctional Program Officer for [place] Fwd Diagnoses Atrial fibrillation with rapid ventricular response I48.91 Supratherapeutic INR R79.1 Shortness of breath R06.02 CHF (congestive heart failure) I50.32 Heart failure type: diastolic Heart failure chronicity: chronic CAD (coronary artery disease) I25.10 Acute kidney injury N17.9 Acute hyponatremia E87.1 Thrombocytopenia D69.6 Neutropenia D70.9 Leukopenia D72.819 Benign essential HTN I10 Dyslipidemia (high LDL; low HDL) E78.5 Alcohol consumption binge drinking F10.10 Smoking addiction F17.200 Cystitis N30.90
--- NOTE | 2019-10-12 17:00 | CTR_ITS ---
PROCEDURE INFORMATION: Exam: CT Abdomen And Pelvis Without Contrast Exam date and time: 10/12/2019 5:10 PM Age: 73 years old Clinical indication: Abnormal findings; Abnormal lab test; Other: Leukopenia; Prior surgery; Surgery date: 6+ months; Surgery type: Colon, hyst TECHNIQUE: Imaging protocol: Computed tomography of the abdomen and pelvis without contrast. Radiation optimization: All CT scans at this facility use at least one of these dose optimization techniques: automated exposure control; mA and/or kV adjustment per patient size (includes targeted exams where dose is matched to clinical indication); or iterative reconstruction. COMPARISON: No relevant prior studies available. RADIATION DOSE METRICS: Total DLP (mGy-cm): 1546.96 FINDINGS: Liver: Normal. No mass. Gallbladder and bile ducts: Multiple gallstones within the gallbladder. Pancreas: Normal. No ductal dilation. Spleen: 13.7 cm mild splenomegaly. Calcified splenic granulomas. Adrenals: Normal. No mass. Kidneys and ureters: Normal. No hydronephrosis. Stomach and bowel: Mild colonic diverticulosis. Appendix: Barium filled appendix which otherwise appears normal. Intraperitoneal space: Unremarkable. No free air. No significant fluid collection. Vasculature: Moderate calcified coronary artery disease. Calcification of the abdominal aorta and/or iliac arteries consistent with atherosclerotic vessel disease. One or more calcified pelvic phleboliths. Lymph nodes: Unremarkable. No enlarged lymph nodes. Bladder: Unremarkable as visualized. Reproductive: Status post hysterectomy. 4.1 cm right ovary. Bones/joints: Unremarkable. No acute fracture. Soft tissues: Unremarkable. CT/CT abdomen pelvis [facility] [id number] IMPRESSION: 1. 13.7 cm mild splenomegaly. 2. Multiple gallstones within the gallbladder. 3. Mild colonic diverticulosis. 4. 4.1 cm right ovary. Radiation Dose CTDIVOL = (mGy): DLP = 1546.96 (mGy-cm)
[2019-10-12 17:26] LABS: NT Pro B Type Natriuretic Pept 2556 pg/mL (0-125); Procalcitonin 0.11 ng/mL (0-0.5)
[2019-10-12 17:27] LABS: Thyroid Stimulating Hormone 1.62 uIU/mL (0.27-4.20)
[2019-10-12 17:38] LABS: Iron 76 ug/dL (37-145); Percent Saturation 28.1 % (20-50); Total Iron Binding Capacity 270 mcg/dl; Unsaturated Iron Binding 194 ug/dL (112-347)
[2019-10-12 17:40] LABS: Hematocrit 30.5 % (37.0-47.0); Hemoglobin 9.4 g/dL (11.5-15.3); Mean Corpuscular HGB Conc 30.8 g/dL (30.0-36.0); Mean Corpuscular Hemoglobin 26.7 pg (28.0-34.0); Mean Corpuscular Volume 86.6 fL (81-99); Mean Platelet Volume 11.4 fL (7.4-10.4); Platelet Count 54 10^3/cmm (130-400); Red Blood Count 3.52 10^6/uL (4.1-5.3); Red Cell Distribution Width 27.7 % (12.1-15.1); White Blood Count 4.6 10^3/uL (4.0-10.0)
[2019-10-12 17:47] LABS: Vitamin B12 299 pg/mL (232-1245)
--- NOTE | 2019-10-12 17:56 | ECG_ITS ---
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 Measurements Intervals [place] Rate: 111 P: NC: -1 QRS: -67 QRSD: 126 T: 125 QT: 359 QTc: 489 Interpretive Statements ATRIAL FIBRILLATION WITH RAPID VENTRICULAR RESPONSE LEFT AXIS DEVIATION [QRS AXIS < -30] POSSIBLE ANTERIOR MYOCARDIAL INFARCTION , PROBABLY OLD MODERATE T-WAVE ABNORMALITY, CONSIDER LATERAL ISCHEMIA Compared to ECG 10/12/2019 14:07:56 T-wave abnormality now present Possible ischemia now present Myocardial infarct finding still present Electronically Signed On 10-13-2019 9:02:11 CDT by Мария Snow M.D. [id number]
[2019-10-12 17:57] LABS: Alanine Aminotransferase < 5 U/L (0-33); Albumin Level 3.4 g/dL (3.5-5.2); Alkaline Phosphatase 112 IU/L (35-105); Anion Gap 17.6 (5-19); Aspartate Amino Transferase 10 U/L (0-32); Blood Urea Nitrogen 13 mg/dL (8-23); Calcium 8.9 mg/dL (8.5-10.5); Carbon Dioxide 22 mmol/L (22-29); Chloride 93 mmol/L (98-107); Globulin 3.5 g/dL (1.3-4.6); Glucose 111 mg/dL (65-115); Osmolality Calculated 265 mOsm/kg (285-295); Potassium 3.6 mmol/L (3.5-5.1); Sodium 129 mmol/L (136-145); Total Bilirubin 0.3 mg/dL (0.15-1.2); Total Protein 6.9 g/dL (6.6-8.7)
[2019-10-12 18:01] LABS: Absolute Segmented Neutrophil 1.5 10/cmm (1.6-7.1); Eosinophils 1 %; Lymphocytes 37 %; Lymphocytes Absolute 1.9 10^3/cmm (1.2-3.4); Monocytes Absolute 1.1 10^3/cmm (0.1-0.6); Segmented Neutrophils 33 %; Total Cells Counted 100 (0-100)
[2019-10-12 18:02] LABS: Anisocytosis 2+; Macrocytosis Trace; Ovalocytes 1+; Poikilocytosis 1+
[2019-10-12 18:03] LABS: Potassium, Radom Urine 41 mmol/L; Urine Creatinine 25 mg/dL (28-217); Urine Random Chloride 58 mmol/L; Urine Random Sodium 21 mmol/L
[2019-10-12 18:03] LABS: Absolute Neutrophil 1.6 10^3/cmm (1.4-6.5); Platelet Estimate Decreased (Normal)
[2019-10-12 18:24] LABS: Folate Level > 20.0 ng/mL (4.8-37.3)
[2019-10-12] MEDS: cefTRIAXone 1,000 MG in sodium chloride 0.9% (plus) 50 ML 100 MG IV (18:48)
[2019-10-12] MEDS: ipratropium-albuterol 3 mL Neb INHALATION (19:52)
[2019-10-12] MEDS: FUROsemide 10 mg/mL SDV 4mL 40 MG IVP (19:55)
[2019-10-12] MEDS: ferrous gluconate 324 mg Tablet PO (19:57)
[2019-10-12] MEDS: dilTIAZem 60 mg Tablet PO (19:57)
[2019-10-12] MEDS: atorvastatin 40 mg Tablet 20 MG PO (19:57)
[2019-10-12] MEDS: metoprolol tartrate 50 mg Tablet PO (19:58)
[2019-10-12] MEDS: D5-NS 0.45% + KCL 20 mEq 20 MEQ/1,000 ML BAG 100 MEQ IV (19:59)
[2019-10-12 20:08] LABS: Lactic Sepsis W/Reflex 1.5 mmol/L (0.5-2.2)
[2019-10-12 20:09] LABS: Troponin 5 6HR 15.22 ng/L (0-10)
[2019-10-12 20:12] LABS: Alcohol Level < 10 mg/dL (0-10); Troponin 5 6HR Delta -0.78 ng/L (0-12)
[2019-10-12 20:17] LABS: LAB Peripheral Smear Sent for Review
--- NOTE | 2019-10-12 21:11 | PC.NURSE ---
PT ARRIVED TO ROOM 106. PT WAS TRANSFERRED TO BED. PT WAS ORIENTATED TO ROOM. CALL LIGHT PLACED WITHING REACH. BED IN LOWEST POSITION AND LOCKED. VS WNL BP 109/78, HR 119, SPO2 94 (2L NC), RR 24. PT IS IN A-FIB AND ON A CARDIZEM DRIP AT 7.5ML/HR. PT REQUESTED A RANGEL. APPROVED THEN RETRACTED APPROVAL. DR IS CONCERNED THAT PT/INR IS TOO ELEVATED TO DO A RANGEL INSERT. PT STATED UNDERSTANDING. WILL CONTINUE TO MONITOR.
[2019-10-12] MEDS: trazodone 100 mg Tablet 200 MG PO (21:20)
[2019-10-13] VITALS (14 sets, daily range): BP systolic 88–128; BP diastolic 52–87; PULSE 89–127; RESP 16–25; TEMP 36.4–36.8; O2SAT 90–96
[2019-10-13 01:57] LABS: Influenza A by IFA Negative (Negative); Influenza B by IFA Negative (Negative)
[2019-10-13] MEDS: dilTIAZem 60 mg Tablet PO ×4 (01:58→19:26)
[2019-10-13] MEDS: ipratropium-albuterol 3 mL Neb INHALATION ×4 (02:40→21:46)
[2019-10-13 05:08] LABS: Estmated Average Glucose 137; Hemoglobin A1C 6.4 % (4.0-6.0)
[2019-10-13 05:17] LABS: INR 3.57 (0.8-1.2)
[2019-10-13] MEDS: D5-NS 0.45% + KCL 20 mEq 20 MEQ/1,000 ML BAG 100 MEQ IV (05:19)
[2019-10-13 05:20] LABS: Alanine Aminotransferase < 5 U/L (0-33); Albumin Level 2.9 g/dL (3.5-5.2); Alkaline Phosphatase 94 IU/L (35-105); Anion Gap 13.9 (5-19); Aspartate Amino Transferase 8 U/L (0-32); Blood Urea Nitrogen 11 mg/dL (8-23); Calcium 7.9 mg/dL (8.5-10.5); Carbon Dioxide 22 mmol/L (22-29); Chloride 97 mmol/L (98-107); Globulin 3.6 g/dL (1.3-4.6); Glucose 135 mg/dL (65-115); Osmolality Calculated 266 mOsm/kg (285-295); Potassium 3.9 mmol/L (3.5-5.1); Sodium 129 mmol/L (136-145); Total Bilirubin 0.2 mg/dL (0.15-1.2); Total Protein 6.5 g/dL (6.6-8.7)
--- NOTE | 2019-10-13 05:21 | PC.NURSE ---
D5-1/2NS WITH 20mEg/L POTASSIUM CHLORIDE WASN'T SCANNED IN THE ED. SCANNED ON FLOOR. WILL CONTINUE TO MONITOR.
[2019-10-13 05:41] LABS: Chol HDL Ratio 2.97 mg/dL (0.0-4.40); Cholesterol 104 mg/dL (0-200); HDL Cholesterol 35 mg/dL (60-100); LDL Cholesterol Calculated 48 mg/dL (50-129); Triglycerides 104 mg/dL (0-150); VLDL Cholestrol Calculation 21 mg/dL (0-30)
--- NOTE | 2019-10-13 05:49 | PC.NURSE ---
PT IS RESTING IN BED. PT DENIES PAIN AT THIS TIME. PT IS FUNNY AND CONSTANTLY JOKING. PT DENIES PAIN. WILL CONTINUE TO MONITOR.
[2019-10-13 06:12] LABS: Hematocrit 26.8 % (37.0-47.0); Hemoglobin 8.4 g/dL (11.5-15.3); Mean Corpuscular HGB Conc 31.3 g/dL (30.0-36.0); Mean Corpuscular Hemoglobin 26.8 pg (28.0-34.0); Mean Corpuscular Volume 85.4 fL (81-99); Mean Platelet Volume 10.6 fL (7.4-10.4); Red Blood Count 3.14 10^6/uL (4.1-5.3); Red Cell Distribution Width 27.5 % (12.1-15.1); White Blood Count 2.9 10^3/uL (4.0-10.0)
[2019-10-13 07:01] LABS: Slide Review Slide Review Perform
[2019-10-13 07:02] LABS: Platelet Count 37 10^3/cmm (130-400)
[2019-10-13 07:26] LABS: Absolute Segmented Neutrophil 0.7 10/cmm (1.6-7.1); Lymphocytes 46 %; Lymphocytes Absolute 1.5 10^3/cmm (1.2-3.4); Monocytes Absolute 0.6 10^3/cmm (0.1-0.6); Segmented Neutrophils 25 %; Total Cells Counted 100 (0-100)
[2019-10-13 07:27] LABS: Poikilocytosis Trace
[2019-10-13 07:28] LABS: Anisocytosis 1+
[2019-10-13 07:29] LABS: Macrocytosis Trace; Ovalocytes 1+; Platelet Estimate Decreased (Normal)
[2019-10-13 07:31] LABS: Blastocytes 3 % (0-0)
[2019-10-13 07:32] LABS: Absolute Neutrophil 0.8 10^3/cmm (1.4-6.5)
[2019-10-13] MEDS: ferrous gluconate 324 mg Tablet PO ×2 (08:07→17:13)
[2019-10-13] MEDS: folic acid 1 mg Tablet PO (09:10)
[2019-10-13] MEDS: pantoprazole DR 40 mg Tablet PO (09:10)
[2019-10-13] MEDS: thiamine 100 mg Tablet PO (09:10)
[2019-10-13] MEDS: atorvastatin 40 mg Tablet 20 MG PO (09:10)
[2019-10-13] MEDS: multivitamin therapeutic Tablet 1 TAB PO (09:10)
[2019-10-13 10:51] LABS: Fibrinogen 652 mg/dL (174-498); Partial Thromboplastin Time 60.9 SECONDS (23.9-36.7)
[2019-10-13 10:53] LABS: D Dimer 0.58 ug/mIFEU (0-0.59)
--- NOTE | 2019-10-13 14:07 | PM.PN ---
Subjective Subjective: Interval history: This morning patient was sitting up into a chair, states that she had a difficult night, was not able to get sleep, had a headache, but is doing a bit better, after a nap, no nausea, no vomiting, no chest pain, no shortness of breath, no fevers, no bruising, no new rashes, no bloody or black stools, no hemoptysis, no lightheadedness, dizziness, no chills, no dysuria, no hematuria, no cough, no neck pain, no neck pain or range of motion, Vitals/I&O/Wt Last Vital Signs Temp 98.0 F 10/13/19 11:13 Pulse 114 H 10/13/19 11:13 Resp 25 H 10/13/19 11:13 BP 101/67 10/13/19 11:13 Pulse Ox 96 10/13/19 11:13 10/12/19 10/13/19 10/13/19 22:59 06:59 14:59 Intake Total 26.583 / 26.583 933.333 / 959.916 800 / 800 Output Total 250 / 250 550 / 800 Balance -223.417 / -223.417 383.333 / 159.916 800 / 800 Weight last 48 hrs Weight 113.625 kg Physical Exam Narrative: EXAM NARRATIVE: General: No acute distress, AO x3, morbidly obese HEENT: PERRLA, pupils bilaterally equal and reactive Chest: Normal vesicular breath sounds, no added sounds, equal good air entry bilaterally CVS: S1-S2 irregularly irregular, tachycardia, no murmurs, S3 gallop Abdomen: Soft, nontender, no organomegaly, bowel sounds present Neuro: No focal deficits, no facial deformity, AO x3, power 5/5 in all limbs Extremities: Bilateral venous stasis changes, bilateral pitting edema 1+ Data : 10/16/19 15:47 10/16/19 04:05 Micro: Microbiology 10/13/19 01:00 MRSA Culture - Final Nose 10/12/19 21:20 Legionella Urinary Antigen - Final Urine,Voided 10/12/19 19:36 Blood Culture - Preliminary Blood SPECIMEN COLLECTED 10/12/19 19:32 Blood Culture - Preliminary Blood SPECIMEN COLLECTED A&P Assessment and plan (1) Atrial fibrillation with rapid ventricular response: Status: Acute (2) Supratherapeutic INR: Status: Acute (3) Shortness of breath: Status: Acute (4) CHF (congestive heart failure): Status: Acute Qualifiers: Heart failure chronicity: chronic Heart failure type: diastolic Qualified Code(s): I50.32 - Chronic diastolic (congestive) heart failure (5) CAD (coronary artery disease): Status: Acute (6) Acute kidney injury: Status: Acute (7) Acute hyponatremia: Status: Acute (8) Thrombocytopenia: Status: Acute (9) Neutropenia: Status: Acute (10) Leukopenia: Status: Acute (11) Benign essential HTN: Status: Acute (12) Dyslipidemia (high LDL; low HDL): Status: Acute (13) Alcohol consumption binge drinking: Status: Acute (14) Smoking addiction: Status: Acute (15) Cystitis: Status: Acute (16) Hypoxia: -Requiring up to 3 to 4 L of oxygen -Etiology is not immediately clear, could be secondary to underlying COPD and/or heart failure -Lungs are clear to auscultation bilaterally -CT chest negative for any pneumonia, atelectasis -We will consider CT angiogram of the chest and echocardiogram based on clinical progress Status: Acute Additional A&P Information Atrial fibrillation with rapid ventricular response: Patient is on Cardizem 120 mg twice daily at home along with metoprolol 50 mg nightly. At present patient is Cardizem drip. We will wean off Cardizem drip. We will transition over to oral Cardizem 60 mg every 6 hourly. Continue with metoprolol. Patient is on Coumadin at home. She states she takes 3 mg 7 days a week. For now we will hold off on Coumadin as her INR is supratherapeutic and she is thrombocytopenic. Supratherapeutic INR: Goal INR 2-2.5. Check INR daily. Shortness of breath: Patient is afebrile but does have leukopenia, thrombocytopenia, neutropenia which are all new. Chest x-ray not concerning for any infiltrate at present. Most likely because of COPD exacerbation. We will request for rapid COVID-[address] chest without contrast. DuoNeb's every 6 hour, budesonide twice daily for now. Oxygen supplementation keeping saturation over 90%. Check proBNP. Patient does have history of congestive heart failure in the past with significant diastolic type. Congestive heart failure: Last echocardiogram from August 2018 shows an EF of 65%, biatrial enlargement, moderate TR, PASP of 33 mmHg. Stress test done in August 2018 showed myocardial perfusion imaging revealing a small to moderate decrease to tracer uptake in RCA territory. EF 58%. Patient takes 80 mg Lasix at home daily. For now started on IV 40 mg twice daily. Pancytopenia: This is new. Baseline labs are within normal limits. Repeat labs to confirm the numbers. Check peripheral smear, vitamin B12, folate level, reticulocyte count. Patient does not give any known history of tick exposure but cannot rule out. Can be related to chronic alcoholism. Check tick panel, CT abdomen pelvis without contrast. On examination patient did not have any splenomegaly but cannot rule out. Neutropenic precautions at present. Cystitis: Patient is not giving any current history of dysuria. Did have UTI a week ago for which she was on ciprofloxacin. Given her current neutropenia we will check blood cultures, urine cultures. Start patient on Rocephin. RADHA: Most likely cardiorenal syndrome. Diuretics as above. Check urine lites, urine creatinine. Strict input output charting. Fluid restriction up to 1500 cc. Hyponatremia: Most likely hypervolemic hyponatremia. Continue to monitor sodiums daily for now. Patient does not have any stigmata of hyponatremia other than dizziness at present. Hypertension: Continue home dose of Cardizem, metoprolol. Goal blood pressure less than 140/90 mmHg with mean arterial pressures over 65. Patient is not in A. fib with RVR will check orthostatics. Anemia: Most recent EGD in April 25 showed healed duodenal ulcer. Hemoglobin 9.7 today. Could be dilutional. We will continue to monitor hemoglobin levels daily. Patient is not complaining of any black bowel movements for now. Protonix 40 mg daily for now. Chronic smoker: Discussed in detail with patient regarding need for smoking cessation. Chronic alcoholism: We will check alcohol levels. Patient states she has not had alcohol in some time. [facility] protocol. Oral folic acid and thiamine. Continue chronic medications like trazodone, folic acid. Full code. Cardiac diet. We will check lower limb Dopplers if negative for DVTs will start on SCDs, supratherapeutic INR. Attestations Medical Necessity Statement*: neutropenia, afib, sob Time Spent in Patient Care: Greater than 35 minutes Coding Level of Care Code Acute Telecommunication Operator for [place] Fwd Diagnoses Atrial fibrillation with rapid ventricular response I48.91 Supratherapeutic INR R79.1 Shortness of breath R06.02 CHF (congestive heart failure) I50.32 Heart failure chronicity: chronic Heart failure type: diastolic CAD (coronary artery disease) I25.10 Acute kidney injury N17.9 Acute hyponatremia E87.1 Thrombocytopenia D69.6 Neutropenia D70.9 Leukopenia D72.819 Benign essential HTN I10 Dyslipidemia (high LDL; low HDL) E78.5 Alcohol consumption binge drinking F10.10 Smoking addiction F17.200 Cystitis N30.90 Hypoxia R09.02
[2019-10-13] MEDS: digoxin 250 mcg/ml INJ 2 mL 500 MCG IVP (15:09)
--- NOTE | 2019-10-13 15:18 | SUR.HOLD ---
justa dunbar 10/12 held due to soft bp's..and pt getting po cardizem q6h. ..per dr wilder
[2019-10-13] MEDS: cefTRIAXone 1,000 MG in sodium chloride 0.9% (plus) 50 ML 100 MG IV (17:12)
[2019-10-13] MEDS: acetaminophen 325 mg Tablet 650 MG PO ×2 (17:13→22:22)
[2019-10-13] MEDS: diphenhydrAMINE 25 mg Capsule PO (17:13)
[2019-10-13] MEDS: doxycycline 100 mg Tablet PO (17:20)
[2019-10-13] MEDS: FUROsemide 10 mg/mL SDV 4mL 40 MG IVP (19:52)
[2019-10-13] MEDS: metoprolol tartrate 50 mg Tablet PO (20:36)
--- NOTE | 2019-10-13 21:45 | PC.NURSE ---
PT WAS SITTING ON THE EDGE OF THE BED. PT DENIES PAIN AT THIS TIME. IV ON TOP OF LEFT WRIST WOULDN'T FLUSH. PT STATES THAT IT IS PAINFUL. IV WAS REMOVED. CATHETER TIP STILL INTACT. WILL CONTINUE TO MONITOR.
[2019-10-13] MEDS: trazodone 100 mg Tablet 200 MG PO (22:23)
[2019-10-14] VITALS (13 sets, daily range): BP systolic 97–127; BP diastolic 50–83; PULSE 78–118; RESP 15–27; TEMP 36.6–36.8; O2SAT 89–97
[2019-10-14] MEDS: dilTIAZem 60 mg Tablet PO ×4 (01:38→19:29)
--- NOTE | 2019-10-14 05:03 | PC.NURSE ---
PT HAS BEEN UP AND DOWN ALL NIGHT. PT IS PLEASANT. PT DENIES PAIN AT THIS TIME. VS WNL. WILL CONTINUE TO MONITOR.
[2019-10-14 05:15] LABS: INR 1.94 (0.8-1.2)
[2019-10-14 05:21] LABS: Alanine Aminotransferase < 5 U/L (0-33); Albumin Level 2.9 g/dL (3.5-5.2); Alkaline Phosphatase 102 IU/L (35-105); Anion Gap 11.9 (5-19); Aspartate Amino Transferase 10 U/L (0-32); Blood Urea Nitrogen 10 mg/dL (8-23); Calcium 8.5 mg/dL (8.5-10.5); Carbon Dioxide 22 mmol/L (22-29); Chloride 96 mmol/L (98-107); Globulin 3.6 g/dL (1.3-4.6); Glucose 107 mg/dL (65-115); Osmolality Calculated 258 mOsm/kg (285-295); Potassium 3.9 mmol/L (3.5-5.1); Sodium 126 mmol/L (136-145); Total Bilirubin 0.4 mg/dL (0.15-1.2); Total Protein 6.5 g/dL (6.6-8.7)
[2019-10-14 06:05] LABS: Basophils % 0.3 %; Eosinophils # 0.1 10^3/uL (0.0-0.8); Eosinophils % 1.3 %; Hematocrit 27.3 % (37.0-47.0); Hemoglobin 8.5 g/dL (11.5-15.3); Lymphocytes # 0.9 10^3/uL (0.8-4.8); Lymphocytes % 23.1 %; Mean Corpuscular HGB Conc 31.1 g/dL (30.0-36.0); Mean Corpuscular Hemoglobin 27.7 pg (28.0-34.0); Mean Corpuscular Volume 88.9 fL (81-99); Monocytes # 2.1 10^3/uL (0.2-0.9); Monocytes % 54.9 %; Neutrophils % 20.4 %; Nucleated Red Blood Cells % 0 %; Platelet Count 35 10^3/cmm (130-400); Red Blood Count 3.07 10^6/uL (4.1-5.3); Red Cell Distribution Width 27.6 % (12.1-15.1); White Blood Count 3.8 10^3/uL (4.0-10.0)
[2019-10-14 06:07] LABS: Neutrophils # 0.77 10^3/uL (1.8-7.7)
[2019-10-14] MEDS: thiamine 100 mg Tablet PO (08:16)
[2019-10-14] MEDS: ferrous gluconate 324 mg Tablet PO ×2 (08:16→17:00)
[2019-10-14] MEDS: atorvastatin 40 mg Tablet 20 MG PO (08:16)
[2019-10-14] MEDS: folic acid 1 mg Tablet PO (08:16)
[2019-10-14] MEDS: multivitamin therapeutic Tablet 1 TAB PO (08:17)
[2019-10-14] MEDS: doxycycline 100 mg Tablet PO ×2 (08:17→17:00)
[2019-10-14] MEDS: pantoprazole DR 40 mg Tablet PO ×2 (08:23→17:00)
[2019-10-14] MEDS: diphenhydrAMINE 25 mg Capsule PO (08:23)
[2019-10-14] MEDS: acetaminophen 325 mg Tablet 650 MG PO ×3 (08:23→20:31)
[2019-10-14] MEDS: FUROsemide 10 mg/mL SDV 4mL 40 MG IVP (08:30)
--- NOTE | 2019-10-14 09:15 | PC.NURSE ---
Dr. Baca at bedside discussing POC at this time.
[2019-10-14 09:48] LABS: Thyroid Stimulating Hormone 1.07 uIU/mL (0.27-4.20); Vitamin B12 297 pg/mL (232-1245)
[2019-10-14 10:06] LABS: LAB Peripheral Smear Sent for Review
[2019-10-14 10:26] LABS: Erythrocyte Sedimentation Rate 92 mm/hr (0-15)
[2019-10-14 10:30] LABS: HIV 1 & 2 Antibody Non-Reactive (Non-Reactiv); HIV 1 & 2 Antigen Non-Reactive (Non-Reactiv)
[2019-10-14 10:43] LABS: Hepatitis A Antibody IgM Non-Reactive (Nonreactive); Hepatitis B Core AB, Total Non-Reactive (Nonreactive); Hepatitis B Surface AB 3.5 (0-8.5); Hepatitis B Surface Antigen Non-Reactive (Nonreactive); Hepatitis C Virus Antibody Non-Reactive (Nonreactive)
[2019-10-14 10:57] LABS: Folate Level > 20.0 ng/mL (4.8-37.3)
--- NOTE | 2019-10-14 12:01 | PC.OT ---
Co-signature by Sobeida Garibay OTR/L for OT eval completed by Nara Bird OTR/Roberto.
[2019-10-14 12:30] LABS: Lyme AB Screen <0.90 index
[2019-10-14] MEDS: ipratropium-albuterol 3 mL Neb INHALATION ×2 (14:25→21:50)
[2019-10-14] MEDS: metoprolol tartrate 50 mg Tablet PO (15:15)
--- NOTE | 2019-10-14 15:19 | PC.NURSE ---
Patient heart rate increased to 130s-140s with movement and with rest heart rate running 118's afib. Dr. Baca notified of increased pulse rate and BP is 106/56. Dr. Baca gave telephone orders of 50mg of metoprolol BID starting at 1515. Continue care
--- NOTE | 2019-10-14 15:35 | P.PN_ITS ---
Subjective Subjective: Interval history: This morning patient is sitting into her chair, denies chest pain, palpitations, lightheadedness, dizziness, has a cough, nonproductive, no lightheadedness, no dizziness, no chills, no new rashes, she does state that she has a cat who likes her ice cubes, but no cat scratch, no other animal bites, no exposure to ticks, no known exposure to COVID-19 she does report drinking alcohol, she states that she is down to 3 to 4 glasses of alcohol, no personal or family history of leukemias, no personal family history of bone marrow disorders no hemoptysis, no bloody or black stools, Vitals/I&O/Wt Last Vital Signs Temp 97.8 F 10/14/19 14:46 Pulse 118 H 10/14/19 14:46 Resp 21 H 10/14/19 14:46 BP 106/56 10/14/19 14:46 Pulse Ox 91 10/14/19 14:46 10/14/19 10/14/19 10/14/19 06:59 14:59 22:59 Intake Total 220 / 1150 240 / 240 Output Total 200 / 200 605 / 605 Balance 20 / 950 -365 / -365 Weight last 48 hrs Weight 113.852 kg Weight 113.625 kg Physical Exam Const: COMMON NORMALS: no acute distress and patient oriented x3 HENMT: COMMON NORMALS: normocephalic HEAD & SCALP: normocephalic Neck/C-Spine: COMMON NORMALS: no JVD Resp: COMMON NORMALS: normal respiratory effort, No retractions, No use of accessory muscles and clear to auscultation bilaterally AUSCULTATION: clear to auscultation bilaterally Cardio: COMMON NORMALS: no JVD, regular rate, regular rhythm, S1 normal heart sound present and S2 normal heart sound present RATE: regular rate RHYTHM: regular rhythm HEART SOUNDS: S1 normal heart sound present and S2 normal heart sound present GI: COMMON NORMALS: Normal to inspection, nondistended, normoactive bowel sounds present, Soft to palpation, non-tender, No hepatosplenomegaly present, no masses and no bruits PALPATION: Yes Soft to palpation and Yes No hepatosplenomegaly present Extremity: COMMON NORMALS: capillary refill normal, no clubbing, cyanosis or edema, no calf tenderness and no pedal edema Neuro: COMMON NORMALS: patient oriented x3 Psych: COMMON NORMALS: mental status grossly normal Data : 10/14/19 04:33 10/14/19 04:33 Micro: Microbiology 10/12/19 17:39 Urine Culture - Preliminary Urine,Clean Catch Coagulase negativ staphylococc 10/12/19 19:36 Blood Culture - Preliminary Blood NEGATIVE TO DATE 10/12/19 19:32 Blood Culture - Preliminary Blood NEGATIVE TO DATE 10/13/19 01:00 MRSA Culture - Final Nose A&P Assessment and plan (1) Atrial fibrillation with rapid ventricular response: Status: Acute (2) Supratherapeutic INR: Status: Acute (3) Shortness of breath: Status: Acute (4) CHF (congestive heart failure): Status: Acute Qualifiers: Heart failure type: diastolic Heart failure chronicity: chronic Qualified Code(s): I50.32 - Chronic diastolic (congestive) heart failure (5) CAD (coronary artery disease): Status: Acute (6) Acute kidney injury: Status: Acute (7) Acute hyponatremia: Status: Acute (8) Thrombocytopenia: Status: Acute (9) Neutropenia: Status: Acute (10) Leukopenia: Status: Acute (11) Benign essential HTN: Status: Acute (12) Dyslipidemia (high LDL; low HDL): Status: Acute (13) Alcohol consumption binge drinking: Status: Acute (14) Smoking addiction: Status: Acute (15) Cystitis: Status: Acute Additional A&P Information Atrial fibrillation with rapid ventricular response: Patient is on Cardizem 120 mg twice daily at home along with metoprolol 50 mg nightly. Continue Cardizem 60 every 6 hours Increase metoprolol to 50 twice daily Patient is on Coumadin at home. She states she takes 3 mg 7 days a week. For now we will hold off on Coumadin as she is thrombocytopenic and anemic Supratherapeutic INR: Goal INR 2-2.5. Check INR daily. Shortness of breath: Patient is afebrile but does have leukopenia, thrombocytopenia, neutropenia which are all new. Chest x-ray not concerning for any infiltrate at present. Most likely because of COPD exacerbation. Rapid COVID-19 negative, will do COVID-[address] chest no acute infiltrates DuoNeb's every 6 hour, budesonide twice daily for now. Oxygen supplementation keeping saturation over 90%. Patient does have history of congestive heart failure in the past with significant diastolic type. Congestive heart failure: Last echocardiogram from August 2018 shows an EF of 65%, biatrial enlargement, moderate TR, PASP of 33 mmHg. Stress test done in August 2018 showed myocardial perfusion imaging revealing a small to moderate decrease to tracer uptake in RCA territory. EF 58%. Patient takes 80 mg Lasix at home daily. Continue Lasix 40 p.o. twice daily Pancytopenia likely secondary to alcohol abuse, and platelet clumping Does have absolute neutropenia, with blast cells seen in the differential HIV, hepatitis, TSH, B12, folate, iron studies, renal function within normal limits CTs scan did show mild splenomegaly Repeat COVID-19 pending Tick panel pending Peripheral smear pending Continue neutropenic precautions, COVID-19 precautions Hemoglobin 8.5 Platelet count 35,000 White blood cell count 3.8 Absolute neutrophil 0.8 3% blasts Repeat CBC, with peripheral smear tomorrow Continue multivitamin, thiamine Will consider bone marrow biopsy I did speak to Dr. Blas about the case, he agrees with above Hold anticoagulation, antiplatelet therapy due to risk of bleeding Follow cultures Cystitis: Patient is not giving any current history of dysuria. Did have UTI a week ago for which she was on ciprofloxacin. Given her current neutropenia we will check blood cultures, urine cultures. Continue Rocephin RADHA: Most likely cardiorenal syndrome. Diuretics as above. Check urine lites, urine creatinine. Strict input output charting. Fluid restriction up to 1500 cc. Hyponatremia: Likely his beers potomania from alcohol consumption Hypertension: Continue home dose of Cardizem, metoprolol. Goal blood pressure less than 140/90 mmHg with mean arterial pressures over 65. Anemia: Most recent EGD in April 25 showed healed duodenal ulcer. Hemoglobin 8.5 today. Could be dilutional. We will continue to monitor hemoglobin levels daily. Patient is not complaining of any black bowel movements for now. Protonix 40 mg bid for now Chronic smoker: Discussed in detail with patient regarding need for smoking cessation. Chronic alcoholism: Alcohol levels normal, CIWA protocol, folic acid, thiamine, multivitamin Continue chronic medications like trazodone, folic acid. Full code. Cardiac diet. We will check lower limb Dopplers if negative for DVTs will start on SCDs, supratherapeutic INR. 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
[2019-10-14] MEDS: FUROsemide 40 mg Tablet PO (16:39)
[2019-10-14] MEDS: cefTRIAXone 1,000 MG in sodium chloride 0.9% (plus) 50 ML 100 MG IV (16:40)
[2019-10-14 18:18] LABS: Basophils % 0.2 %; Eosinophils # 0.1 10^3/uL (0.0-0.8); Eosinophils % 1.1 %; Hematocrit 26.9 % (37.0-47.0); Hemoglobin 8.5 g/dL (11.5-15.3); Lymphocytes # 1.3 10^3/uL (0.8-4.8); Lymphocytes % 26.7 %; Mean Corpuscular HGB Conc 31.6 g/dL (30.0-36.0); Mean Corpuscular Hemoglobin 27.7 pg (28.0-34.0); Mean Corpuscular Volume 87.6 fL (81-99); Mean Platelet Volume 11.7 fL (7.4-10.4); Monocytes # 2.7 10^3/uL (0.2-0.9); Monocytes % 57.8 %; Nucleated Red Blood Cells % 0 %; Platelet Count 35 10^3/cmm (130-400); Red Blood Count 3.07 10^6/uL (4.1-5.3); Red Cell Distribution Width 27.7 % (12.1-15.1); White Blood Count 4.7 10^3/uL (4.0-10.0)
--- NOTE | 2019-10-14 20:07 | PC.NURSE ---
PT GOT UP TO CHAIR. PT C/O LOWER BACK PAIN AT THIS TIME. PT WANTS SOME TYLENOL AND TRAZODONE WHENEVER IT BECOMES TIME. WILL CONTINUE TO MONITOR.
[2019-10-14] MEDS: trazodone 100 mg Tablet 200 MG PO (20:31)
[2019-10-14 20:50] LABS: Slide Review Slide Review Perform
[2019-10-14 20:52] LABS: Neutrophils # 0.19 10^3/uL (1.8-7.7)
[2019-10-14 21:57] LABS: Coronavirus Lab Test PTC Negative
[2019-10-15] VITALS (12 sets, daily range): BP systolic 82–116; BP diastolic 50–69; PULSE 78–109; RESP 16–25; TEMP 36.6–36.8; O2SAT 90–97
[2019-10-15] MEDS: dilTIAZem 60 mg Tablet PO ×4 (00:33→20:44)
[2019-10-15] MEDS: acetaminophen 325 mg Tablet 650 MG PO ×4 (00:33→22:13)
[2019-10-15 05:02] LABS: Basophils % 0.3 %; Hematocrit 24.9 % (37.0-47.0); Hemoglobin 7.7 g/dL (11.5-15.3); Lymphocytes % 25.2 %; Mean Corpuscular HGB Conc 30.9 g/dL (30.0-36.0); Mean Corpuscular Hemoglobin 27.1 pg (28.0-34.0); Mean Corpuscular Volume 87.7 fL (81-99); Monocytes # 2.3 10^3/uL (0.2-0.9); Monocytes % 60.4 %; Neutrophils % 5.8 %; Nucleated Red Blood Cells % 0 %; Platelet Count 33 10^3/cmm (130-400); Red Blood Count 2.84 10^6/uL (4.1-5.3); Red Cell Distribution Width 27.4 % (12.1-15.1); White Blood Count 3.8 10^3/uL (4.0-10.0)
[2019-10-15 05:19] LABS: INR 1.71 (0.8-1.2)
[2019-10-15 05:25] LABS: Alanine Aminotransferase 6 U/L (0-33); Albumin Level 2.9 g/dL (3.5-5.2); Alkaline Phosphatase 109 IU/L (35-105); Anion Gap 12.6 (5-19); Aspartate Amino Transferase 8 U/L (0-32); Blood Urea Nitrogen 12 mg/dL (8-23); C Reactive Protein 123.2 mg/L (0.0-4.9); Calcium 7.9 mg/dL (8.5-10.5); Carbon Dioxide 25 mmol/L (22-29); Chloride 99 mmol/L (98-107); Globulin 2.9 g/dL (1.3-4.6); Glucose 103 mg/dL (65-115); Magnesium 1.8 mg/dL (1.7-2.3); Osmolality Calculated 272 mOsm/kg (285-295); Phosphorus 3.9 mg/dL (2.5-4.5); Potassium 3.6 mmol/L (3.5-5.1); Sodium 133 mmol/L (136-145); Total Bilirubin 0.3 mg/dL (0.15-1.2); Total Protein 5.8 g/dL (6.6-8.7)
[2019-10-15 05:36] LABS: Procalcitonin 0.13 ng/mL (0-0.5)
--- NOTE | 2019-10-15 06:20 | PC.NURSE ---
PT HAD A RESTLESS NIGHT. PT WAS UP AND DOWN A LOT. O2 DROPPED INTO 70'S WITH EXERTION. PT C/O GEN BODY PAIN ALL NIGHT. WILL CONTINUE TO MONITOR.
[2019-10-15 07:34] LABS: Neutrophils # 0.22 10^3/uL (1.8-7.7)
[2019-10-15 07:35] LABS: Slide Review Slide Review Perform
[2019-10-15] MEDS: ipratropium-albuterol 3 mL Neb INHALATION ×3 (08:02→20:10)
--- NOTE | 2019-10-15 08:18 | DCPLANNER ---
Pg 2 of IM updated and reviewed with pt., no questions, copy provided.
[2019-10-15] MEDS: thiamine 100 mg Tablet PO (09:01)
[2019-10-15] MEDS: doxycycline 100 mg Tablet PO ×2 (09:01→17:07)
[2019-10-15] MEDS: multivitamin therapeutic Tablet 1 TAB PO (09:01)
[2019-10-15] MEDS: metoprolol tartrate 50 mg Tablet PO ×2 (09:01→17:07)
[2019-10-15] MEDS: FUROsemide 40 mg Tablet PO ×2 (09:01→15:37)
[2019-10-15] MEDS: folic acid 1 mg Tablet PO (09:02)
[2019-10-15] MEDS: atorvastatin 40 mg Tablet 20 MG PO (09:02)
[2019-10-15] MEDS: pantoprazole DR 40 mg Tablet PO ×2 (09:02→17:07)
[2019-10-15] MEDS: diphenhydrAMINE 25 mg Capsule PO ×2 (09:04→20:44)
[2019-10-15] MEDS: ferrous gluconate 324 mg Tablet PO ×2 (09:11→17:07)
--- NOTE | 2019-10-15 16:18 | P.PN_ITS ---
Subjective Subjective: Interval history: This morning patient is sitting up into a chair, she is requiring up to 3 L nasal cannula, no lightheadedness, dizziness, no nausea, no vomiting, no fevers, no bloody or black stools, Vitals/I&O/Wt Last Vital Signs Temp 97.9 F 10/15/19 15:19 Pulse 82 10/15/19 15:34 Resp 17 10/15/19 15:34 BP 82/52 10/15/19 15:19 Pulse Ox 97 10/15/19 15:34 10/15/19 10/15/19 10/15/19 06:59 14:59 22:59 Intake Total 120 / 410 Output Total 300 / 1505 500 / 500 Balance -180 / -1095 -500 / -500 Weight last 48 hrs Weight 113.716 kg Weight 113.852 kg Physical Exam Const: COMMON NORMALS: no acute distress and patient oriented x3 HENMT: COMMON NORMALS: normocephalic HEAD & SCALP: normocephalic Neck/C-Spine: COMMON NORMALS: no JVD Resp: COMMON NORMALS: normal respiratory effort, No retractions, No use of accessory muscles and clear to auscultation bilaterally AUSCULTATION: clear to auscultation bilaterally Cardio: COMMON NORMALS: no JVD, regular rate, regular rhythm, S1 normal heart sound present and S2 normal heart sound present RATE: regular rate RHYTHM: regular rhythm HEART SOUNDS: S1 normal heart sound present and S2 normal hea rt sound present GI: COMMON NORMALS: Normal to inspection, nondistended, normoactive bowel sounds present, Soft to palpation, non-tender, No hepatosplenomegaly present, no masses and no bruits PALPATION: Yes Soft to palpation and Yes No hepatosplenomegaly present Extremity: COMMON NORMALS: capillary refill normal, no clubbing, cyanosis or edema, no calf tenderness and no pedal edema Neuro: COMMON NORMALS: patient oriented x3 Psych: COMMON NORMALS: mental status grossly normal Data : 10/15/19 04:13 10/15/19 04:13 Micro: Microbiology 10/12/19 17:39 Urine Culture - Preliminary Urine,Clean Catch Coagulase negativ staphylococc A&P Assessment and plan (1) Atrial fibrillation with rapid ventricular response: Status: Acute (2) Supratherapeutic INR: Status: Acute (3) Shortness of breath: Status: Acute (4) CHF (congestive heart failure): Status: Acute Qualifiers: Heart failure type: diastolic Heart failure chronicity: chronic Qualified Code(s): I50.32 - Chronic diastolic (congestive) heart failure (5) CAD (coronary artery disease): Status: Acute (6) Acute kidney injury: Status: Acute (7) Acute hyponatremia: Status: Acute (8) Thrombocytopenia: Status: Acute (9) Neutropenia: Status: Acute (10) Leukopenia: Status: Acute (11) Benign essential HTN: Status: Acute (12) Dyslipidemia (high LDL; low HDL): Status: Acute (13) Alcohol consumption binge drinking: Status: Acute (14) Smoking addiction: Status: Acute (15) Cystitis: Status: Acute (16) Hypoxia: -Requiring up to 3 to 4 L of oxygen -Etiology is not immediately clear, could be secondary to underlying COPD and/or heart failure -Lungs are clear to auscultation bilaterally -CT chest negative for any pneumonia, atelectasis -We will consider CT angiogram of the chest and echocardiogram based on clinical progress Status: Acute Additional A&P Information Atrial fibrillation with rapid ventricular response: Heart rates are ranging machine 80s to 110 Continue Cardizem 60 every 6 hours Increase metoprolol to 50 twice daily Patient is on Coumadin at home. She states she takes 3 mg 7 days a week. For now we will hold off on Coumadin as she is thrombocytopenic and anemic Supratherapeutic INR: Goal INR 2-2.5. INR 1.71 Shortness of breath: Likely secondary COPD exacerbation -Clinically she is doing well, no shortness of breath currently, no shortness of breath with exertion, afebrile, normotensive -But she is requiring up to 3 to 4 L of oxygen without any clear etiology? Could be secondary to COPD, will obtain ABG consider CTA and echocardiogram Patient is afebrile but does have leukopenia, thrombocytopenia, neutropenia which are all new. CT abdomen no acute findings CT of the chest no acute findings, no consolidation, no pleural effusion Rapid COVID-19 negative, COVID-19 PCR negative DuoNeb's every 6 hour, budesonide twice daily for now. Oxygen supplementation keeping saturation over 90%. Patient does have history of congestive heart failure in the past with significant diastolic type. Congestive heart failure: Last echocardiogram from August 2018 shows an EF of 65%, biatrial enlargement, moderate TR, PASP of 33 mmHg. Stress test done in August 2018 showed myocardial perfusion imaging revealing a small to moderate decrease to tracer uptake in RCA territory. EF 58%. Patient takes 80 mg Lasix at home daily. Continue Lasix 40 p.o. twice daily Pancytopenia likely secondary to alcohol abuse, and platelet clumping Patient's peripheral smear does not show any significant blasts, some platelet clumping, will await official read Does have absolute neutropenia, with blast cells seen in the differential HIV, hepatitis, TSH, B12, folate, iron studies, renal function within normal limits CTs scan did show mild splenomegaly Repeat COVID-19 negative Tick panel pending Continue neutropenic precautions Hemoglobin 7.7 Platelet count 33,000 White blood cell count 3.8 Neutrophils 0.22 Repeat CBC, with peripheral smear tomorrow Continue multivitamin, thiamine Will consider bone marrow biopsy as outpatient I did speak to Dr. Blas about the case, he agrees with above Hold anticoagulation, antiplatelet therapy due to risk of bleeding Follow cultures Cystitis: Patient is not giving any current history of dysuria. Did have UTI a week ago for which she was on ciprofloxacin. Given her current neutropenia, urine culture shows to coagulase-negative staph, will await final cultures Continue Rocephin RADHA: Most likely cardiorenal syndrome. Diuretics as above. Strict input output charting. Fluid restriction up to 2000 cc. Hyponatremia: Likely his beers potomania from alcohol consumption Hypertension: Continue home dose of Cardizem, metoprolol. Goal blood pressure less than 140/90 mmHg with mean arterial pressures over 65. Anemia: Most recent EGD in April 25 showed healed duodenal ulcer. Hemoglobin 8.5 today. Could be dilutional. We will continue to monitor hemoglobin levels daily. There is a possibility the patient could be having a slow GI bleed on top of her pancytopenia, although no overt signs of bleeding, will have to continue to monitor hemoglobin closely Patient is not complaining of any black bowel movements for now. Protonix 40 mg bid for now Chronic smoker: Discussed in detail with patient regarding need for smoking cessation. Chronic alcoholism: Alcohol levels normal, CIWA protocol, folic acid, thiamine, multivitamin Continue chronic medications like trazodone, folic acid. Full code. Cardiac diet. We will check lower limb Dopplers if negative for DVTs will start on SCDs, supratherapeutic INR. 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
[2019-10-15] MEDS: cefTRIAXone 1,000 MG in sodium chloride 0.9% (plus) 50 ML 100 MG IV (17:06)
[2019-10-15 17:20] LABS: ABG PCO2 32.1 mmHg (35-45); ABG PH Result 7.46 (7.35-7.45); Blood Gas Allen Test Pos; Blood Gas Sample Site Radial, right; Blood Gas Sample Type Arterial; HCO3 ABG 22.6 mmol/L (22-26); Oxygen Device NC; PO2 ABG 78.4 mmHg (80.0-100.0)
[2019-10-15 17:40] LABS: Eosinophils # 0.1 10^3/uL (0.0-0.8); Eosinophils % 1.5 %; Hematocrit 26.8 % (37.0-47.0); Hemoglobin 8.3 g/dL (11.5-15.3); Lymphocytes # 1.1 10^3/uL (0.8-4.8); Lymphocytes % 23.2 %; Mean Corpuscular Hemoglobin 27.8 pg (28.0-34.0); Mean Corpuscular Volume 89.6 fL (81-99); Monocytes # 2.5 10^3/uL (0.2-0.9); Monocytes % 55.5 %; Nucleated Red Blood Cells % 0 %; Platelet Count 31 10^3/cmm (130-400); Red Blood Count 2.99 10^6/uL (4.1-5.3); Red Cell Distribution Width 27.6 % (12.1-15.1); White Blood Count 4.5 10^3/uL (4.0-10.0)
[2019-10-15 19:05] LABS: Neutrophils # 0.22 10^3/uL (1.8-7.7); Slide Review Slide Review Perform
[2019-10-15] MEDS: trazodone 100 mg Tablet 200 MG PO (20:44)
[2019-10-16] VITALS (13 sets, daily range): BP systolic 92–119; BP diastolic 54–74; PULSE 91–112; RESP 12–23; TEMP 36.6–36.9; O2SAT 88–97
[2019-10-16] MEDS: dilTIAZem 60 mg Tablet PO ×4 (02:11→20:06)
[2019-10-16] MEDS: ipratropium-albuterol 3 mL Neb INHALATION ×3 (02:31→21:17)
[2019-10-16 05:25] LABS: Basophils % 0.2 %; Eosinophils # 0.1 10^3/uL (0.0-0.8); Eosinophils % 1.1 %; Hematocrit 23.8 % (37.0-47.0); Hemoglobin 7.4 g/dL (11.5-15.3); Lymphocytes % 22.3 %; Mean Corpuscular HGB Conc 31.1 g/dL (30.0-36.0); Mean Corpuscular Hemoglobin 27.4 pg (28.0-34.0); Mean Corpuscular Volume 88.1 fL (81-99); Monocytes # 2.6 10^3/uL (0.2-0.9); Monocytes % 57.2 %; Nucleated Red Blood Cells % 0 %; Positive C 1; Positive M 1; Red Cell Distribution Width 27.4 % (12.1-15.1); White Blood Count 4.5 10^3/uL (4.0-10.0)
[2019-10-16 05:34] LABS: INR 1.35 (0.8-1.2)
[2019-10-16 06:00] LABS: Alanine Aminotransferase 6 U/L (0-33); Albumin Level 2.7 g/dL (3.5-5.2); Alkaline Phosphatase 101 IU/L (35-105); Anion Gap 12.7 (5-19); Aspartate Amino Transferase 11 U/L (0-32); Blood Urea Nitrogen 12 mg/dL (8-23); C Reactive Protein 107.8 mg/L (0.0-4.9); Calcium 8.2 mg/dL (8.5-10.5); Carbon Dioxide 23 mmol/L (22-29); Chloride 99 mmol/L (98-107); Globulin 3.6 g/dL (1.3-4.6); Glucose 103 mg/dL (65-115); Magnesium 1.7 mg/dL (1.7-2.3); Osmolality Calculated 268 mOsm/kg (285-295); Potassium 3.7 mmol/L (3.5-5.1); Sodium 131 mmol/L (136-145); Total Bilirubin 0.3 mg/dL (0.15-1.2); Total Protein 6.3 g/dL (6.6-8.7)
[2019-10-16 06:36] LABS: Platelet Count 26 10^3/cmm (130-400)
[2019-10-16 06:37] LABS: Neutrophils # 0.85 10^3/uL (1.8-7.7); Slide Review Slide Review Perform
[2019-10-16] MEDS: ferrous gluconate 324 mg Tablet PO ×2 (07:27→17:46)
[2019-10-16] MEDS: FUROsemide 40 mg Tablet PO ×2 (07:27→15:30)
[2019-10-16] MEDS: diphenhydrAMINE 25 mg Capsule PO ×2 (07:33→20:06)
[2019-10-16] MEDS: acetaminophen 325 mg Tablet 650 MG PO ×3 (07:33→20:06)
[2019-10-16 07:55] LABS: Procalcitonin 0.13 ng/mL (0-0.5)
[2019-10-16 09:01] LABS: Lactate Dehydrogenase 328 U/L (135-214)
[2019-10-16] MEDS: doxycycline 100 mg Tablet PO ×2 (09:57→17:46)
[2019-10-16] MEDS: multivitamin therapeutic Tablet 1 TAB PO (09:57)
[2019-10-16] MEDS: folic acid 1 mg Tablet PO (09:57)
[2019-10-16] MEDS: atorvastatin 40 mg Tablet 20 MG PO (09:57)
[2019-10-16] MEDS: metoprolol tartrate 50 mg Tablet PO ×2 (09:57→17:46)
[2019-10-16] MEDS: pantoprazole DR 40 mg Tablet PO ×2 (09:57→17:46)
[2019-10-16] MEDS: thiamine 100 mg Tablet PO (09:57)
--- NOTE | 2019-10-16 12:07 | PC.RESP ---
Smoking Cessation information sent to patient.
--- NOTE | 2019-10-16 12:22 | P.PN_ITS ---
Subjective Subjective: Interval history: This morning patient was sitting up into a chair, states that she had a difficult night, was not able to get sleep, had a headache, but is doing a bit better, after a nap, no nausea, no vomiting, no chest pain, no shortness of breath, no fevers, no bruising, no new rashes, no bloody or black stools, no hemoptysis, no lightheadedness, dizziness, no chills, no dysuria, no hematuria, no cough, no neck pain, no neck pain or range of motion, Vitals/I&O/Wt Last Vital Signs Temp 98.2 F 10/16/19 08:00 Pulse 100 10/16/19 10:00 Resp 12 10/16/19 09:56 BP 94/71 10/16/19 08:00 Pulse Ox 97 10/16/19 09:56 10/15/19 10/16/19 10/16/19 22:59 06:59 14:59 Intake Total 410 / 410 120 / 120 Output Total 250 / 250 Balance 410 / -90 -130 / -130 Weight last 48 hrs Weight 112.309 kg Weight 113.716 kg Physical Exam Const: COMMON NORMALS: no acute distress and patient oriented x3 HENMT: COMMON NORMALS: normocephalic HEAD & SCALP: normocephalic Neck/C-Spine: COMMON NORMALS: no JVD Resp: COMMON NORMALS: normal respiratory effort, No retractions, No use of accessory muscles and clear to auscultation bilaterally AUSCULTATION: clear to auscultation bilaterally Cardio: COMMON NORMALS: no JVD, regular rate, regular rhythm, S1 normal heart sound present and S2 normal heart sound present RATE: regular rate RHYTHM: regular rhythm HEART SOUNDS: S1 normal heart sound present and S2 normal heart sound present GI: COMMON NORMALS: Normal to inspection, nondistended, normoactive bowel s ounds present, Soft to palpation, non-tender, No hepatosplenomegaly present, no masses and no bruits PALPATION: Yes Soft to palpation and Yes No hepatosplenomegaly present Extremity: COMMON NORMALS: capillary refill normal, no clubbing, cyanosis or edema, no calf tenderness and no pedal edema Neuro: COMMON NORMALS: patient oriented x3 Psych: COMMON NORMALS: mental status grossly normal Data : 10/16/19 04:05 10/16/19 04:05 Micro: Microbiology 10/12/19 17:39 Urine Culture - Final Urine,Clean Catch Staphylococcus warneri A&P Assessment and plan (1) Atrial fibrillation with rapid ventricular response: Status: Acute (2) Supratherapeutic INR: Status: Acute (3) Shortness of breath: Status: Acute (4) CHF (congestive heart failure): Status: Acute Qualifiers: Heart failure type: diastolic Heart failure chronicity: chronic Qualified Code(s): I50.32 - Chronic diastolic (congestive) heart failure (5) CAD (coronary artery disease): Status: Acute (6) Acute kidney injury: Status: Acute (7) Acute hyponatremia: Status: Acute (8) Thrombocytopenia: Status: Acute (9) Neutropenia: Status: Acute (10) Leukopenia: Status: Acute (11) Benign essential HTN: Status: Acute (12) Dyslipidemia (high LDL; low HDL): Status: Acute (13) Alcohol consumption binge drinking: Status: Acute (14) Smoking addiction: Status: Acute (15) Cystitis: Status: Acute (16) Hypoxia: -Requiring up to 3 to 4 L of oxygen -Etiology is not immediately clear, could be secondary to underlying COPD and/or heart failure -Lungs are clear to auscultation bilaterally -CT chest negative for any pneumonia, atelectasis -We will consider CT angiogram of the chest and echocardiogram based on clinical progress Status: Acute Additional A&P Information Atrial fibrillation with rapid ventricular response: Heart rates are ranging machine 80s to 100 Continue Cardizem 60 every 6 hours Increase metoprolol to 50 twice daily Patient is on Coumadin at home. She states she takes 3 mg 7 days a week. For now we will hold off on Coumadin as she is thrombocytopenic and anemic Supratherapeutic INR: Goal INR 2-2.5. INR 1.35 Shortness of breath: Likely secondary COPD exacerbation -Clinically she is doing well, no shortness of breath currently, no shortness of breath with exertion, afebrile, normotensive -But she is requiring up to 3 L of oxygen, likely be secondary to COPD Patient is afebrile but does have leukopenia, thrombocytopenia, neutropenia which are all new. CT abdomen no acute findings CT of the chest no acute findings, no consolidation, no pleural effusion Rapid COVID-19 negative, COVID-19 PCR negative DuoNeb's every 6 hour, budesonide twice daily for now. Oxygen supplementation keeping saturation over 90%. Patient does have history of congestive heart failure in the past with significant diastolic type. Patient will require oxygen on discharge Urine culture showing Staphylococcus warneri, switch to Bactrim Congestive heart failure: Last echocardiogram from August 2018 shows an EF of 65%, biatrial enlargement, moderate TR, PASP of 33 mmHg. Stress test done in August 2018 showed myocardial perfusion imaging revealing a small to moderate decrease to tracer uptake in RCA territory. EF 58%. Patient takes 80 mg Lasix at home daily. Continue Lasix 40 p.o. twice daily Pancytopenia likely secondary to alcohol abuse, and platelet clumping Patient's peripheral smear does not show any significant blasts, some platelet clumping, will await official read Does have absolute neutropenia, with blast cells seen in the differential HIV, hepatitis, TSH, B12, folate, iron studies, renal function within normal limits CTs scan did show mild splenomegaly Repeat COVID-19 negative Tick panel pending, but is on doxycycline in the meantime For UTI, continue Rocephin Continue neutropenic precautions Hemoglobin 7.4 Platelet count 98284 White blood cell count 4.5 Neutrophils 0.85 Haptoglobin 298, T bili 0.3, LDH 328, Repeat CBC, with peripheral smear as outpatient Continue multivitamin, thiamine Will consider bone marrow biopsy as outpatient I did speak to Dr. Blas about the case, he agrees with above Hold anticoagulation, antiplatelet therapy due to risk of bleeding Urine culture showing Staphylococcus warneri, switch to Bactrim Cystitis: Patient is not giving any current history of dysuria. Did have UTI a week ago for which she was on ciprofloxacin. Given her current neutropenia, urine culture shows to coagulase-negative staph, will await final cultures Continue Rocephin RADHA: Most likely cardiorenal syndrome. Diuretics as above. Strict input output charting. Fluid restriction up to 2000 cc. Hyponatremia: Likely his beers potomania from alcohol consumption Hypertension: Continue home dose of Cardizem, metoprolol. Goal blood pressure less than 140/90 mmHg with mean arterial pressures over 65. Anemia: Most recent EGD in April 25 showed healed duodenal ulcer. Hemoglobin 8.5 today. Could be dilutional. We will continue to monitor hemoglobin levels daily. There is a possibility the patient could be having a slow GI bleed on top of her pancytopenia, although no overt signs of bleeding, will have to continue to monitor hemoglobin closely Patient is not complaining of any black bowel movements for now. Protonix 40 mg bid for now Chronic smoker: Discussed in detail with patient regarding need for smoking cessation. Chronic alcoholism: Alcohol levels normal, CIWA protocol, folic acid, thiamine, multivitamin Continue chronic medications like trazodone, folic acid. Full code. Cardiac diet. We will check lower limb Dopplers if negative for DVTs will start on SCDs, supratherapeutic INR. 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
[2019-10-16] MEDS: sulfamethoxazole-trimeth DS 160-800 mg Tablet 1 TAB PO ×2 (12:48→17:46)
[2019-10-16 16:23] LABS: Eosinophils # 0.1 10^3/uL (0.0-0.8); Eosinophils % 1.3 %; Hematocrit 24.4 % (37.0-47.0); Hemoglobin 7.6 g/dL (11.5-15.3); Lymphocytes # 2.5 10^3/uL (0.8-4.8); Lymphocytes % 54.5 %; Mean Corpuscular HGB Conc 31.1 g/dL (30.0-36.0); Mean Corpuscular Hemoglobin 27.9 pg (28.0-34.0); Mean Corpuscular Volume 89.7 fL (81-99); Monocytes # 1.3 10^3/uL (0.2-0.9); Neutrophils % 3.5 %; Nucleated Red Blood Cells % 0 %; Red Blood Count 2.72 10^6/uL (4.1-5.3); Red Cell Distribution Width 27.3 % (12.1-15.1); White Blood Count 4.6 10^3/uL (4.0-10.0)
[2019-10-16 16:30] LABS: E. Chaffeensis AB IGG <1:64; E. Chaffeensis AB IGM <1:20; RMSF IGG NOT DETECTED; RMSF IGM NOT DETECTED
[2019-10-16 17:48] LABS: Platelet Count 28 10^3/cmm (130-400)
[2019-10-16 17:49] LABS: Add RBC Morph Yes; Neutrophils # 0.16 10^3/uL (1.8-7.7); Slide Review Slide Review Perform
[2019-10-16 17:50] LABS: Ovalocytes 1+; RBC Morph Comp No
--- NOTE | 2019-10-16 18:35 | NUR.SHIFT ---
PATIENT HAS HAD A MODERATE HEADACHE ALL THIS SHIFT. TYLENOL DOES TAKE THE EDGE OFF. HEART RATE HAS MAINTAINED BETWEEN 80-110 THIS SHIFT.
[2019-10-16 19:22] LABS: Monoscreen Negative (Negative)
[2019-10-16] MEDS: trazodone 100 mg Tablet 200 MG PO (20:06)
--- NOTE | 2019-10-16 20:31 | PC.NURSE ---
PT TRANSFERRED FROM CHAIR TO BED. PT C/O 5/10 GEN BODY PAIN. PT REPOSITIONED AND SCOOTED UP IN BED. WILL CONTINUE TO MONITOR.
[2019-10-17] VITALS (14 sets, daily range): BP systolic 89–119; BP diastolic 41–74; PULSE 86–99; RESP 17–92; TEMP 36.5–36.9; O2SAT 89–99
[2019-10-17] MEDS: dilTIAZem 60 mg Tablet PO ×4 (02:03→20:09)
[2019-10-17] MEDS: acetaminophen 325 mg Tablet 650 MG PO ×2 (02:05→16:10)
[2019-10-17] MEDS: ipratropium-albuterol 3 mL Neb INHALATION ×4 (03:50→19:52)
[2019-10-17 04:17] LABS: Basophils % 0.2 %; Eosinophils # 0.1 10^3/uL (0.0-0.8); Eosinophils % 1.4 %; Hematocrit 25.4 % (37.0-47.0); Hemoglobin 7.6 g/dL (11.5-15.3); Lymphocytes # 1.7 10^3/uL (0.8-4.8); Lymphocytes % 34.9 %; Mean Corpuscular HGB Conc 29.9 g/dL (30.0-36.0); Mean Corpuscular Hemoglobin 26.9 pg (28.0-34.0); Mean Corpuscular Volume 89.8 fL (81-99); Monocytes # 2.4 10^3/uL (0.2-0.9); Monocytes % 48.4 %; Neutrophils % 14.9 %; Nucleated Red Blood Cells % 0 %; Red Blood Count 2.83 10^6/uL (4.1-5.3); Red Cell Distribution Width 27.2 % (12.1-15.1)
[2019-10-17 04:37] LABS: Alanine Aminotransferase 6 U/L (0-33); Albumin Level 2.5 g/dL (3.5-5.2); Alkaline Phosphatase 100 IU/L (35-105); Anion Gap 12.6 (5-19); Aspartate Amino Transferase 12 U/L (0-32); Blood Urea Nitrogen 12 mg/dL (8-23); C Reactive Protein 72.5 mg/L (0.0-4.9); Calcium 8.2 mg/dL (8.5-10.5); Carbon Dioxide 21 mmol/L (22-29); Chloride 99 mmol/L (98-107); Globulin 3.6 g/dL (1.3-4.6); Glucose 106 mg/dL (65-115); Magnesium 1.7 mg/dL (1.7-2.3); Osmolality Calculated 265 mOsm/kg (285-295); Phosphorus 4.5 mg/dL (2.5-4.5); Potassium 3.6 mmol/L (3.5-5.1); Sodium 129 mmol/L (136-145); Total Bilirubin 0.2 mg/dL (0.15-1.2); Total Protein 6.1 g/dL (6.6-8.7)
[2019-10-17 04:43] LABS: Slide Review Slide Review Perform
[2019-10-17 04:44] LABS: Neutrophils # 0.74 10^3/uL (1.8-7.7); Platelet Count 26 10^3/cmm (130-400)
[2019-10-17 04:50] LABS: Procalcitonin 0.12 ng/mL (0-0.5)
[2019-10-17 05:17] LABS: INR 1.26 (0.8-1.2)
--- NOTE | 2019-10-17 05:38 | PC.NURSE ---
PT APPEARED TO HAVE RESTED WITH EYES CLOSED. PT DENIES PAIN AT THIS TIME. WILL CONTINUE TO MONITOR.
[2019-10-17] MEDS: folic acid 1 mg Tablet PO (08:23)
[2019-10-17] MEDS: multivitamin therapeutic Tablet 1 TAB PO (08:23)
[2019-10-17] MEDS: pantoprazole DR 40 mg Tablet PO ×2 (08:23→17:45)
[2019-10-17] MEDS: metoprolol tartrate 50 mg Tablet PO ×2 (08:23→17:45)
[2019-10-17] MEDS: doxycycline 100 mg Tablet PO ×2 (08:23→17:45)
[2019-10-17] MEDS: thiamine 100 mg Tablet PO (08:24)
[2019-10-17] MEDS: sulfamethoxazole-trimeth DS 160-800 mg Tablet 1 TAB PO ×2 (08:24→17:45)
[2019-10-17] MEDS: atorvastatin 40 mg Tablet 20 MG PO (08:24)
[2019-10-17] MEDS: FUROsemide 40 mg Tablet PO ×2 (08:24→16:08)
[2019-10-17] MEDS: ferrous gluconate 324 mg Tablet PO ×2 (08:24→17:45)
--- NOTE | 2019-10-17 08:36 | PC.NURSE ---
Dr thayer at bedside for discussion of POC spoke with dr thayer about nicotine gum for patient per patient request. verbal instruction given for Nicotine gum 2 mg prn Q2h for nicotine cravings
[2019-10-17] MEDS: nicotine 2 mg Gum BUCCAL (08:58)
--- NOTE | 2019-10-17 09:00 | PC.SOCIAL ---
IMM Updated Page 2 of IMM updated and given to patient. Initialed, dated, and timed and placed back in chart.
--- NOTE | 2019-10-17 11:13 | PM.PN ---
Subjective Subjective: Interval history: This morning patient sitting up into a chair, she is on 3 L nasal cannula, has been ambulating without significant symptomatology, no bloody or black stools, no hemoptysis, no fevers, no chills, no nausea, no vomiting, no new rashes, no headaches today, no blurry vision, no dysuria, no hematuria, denies weakness, denies fatigue Vitals/I&O/Wt Last Vital Signs Temp 98.3 F 10/17/19 07:47 Pulse 89 10/17/19 08:47 Resp 18 10/17/19 08:42 BP 89/63 10/17/19 07:47 Pulse Ox 98 10/17/19 08:42 10/16/19 10/17/19 10/17/19 22:59 06:59 14:59 Intake Total 290 / 530 120 / 650 240 / 240 Output Total 850 / 1100 Balance 290 / 280 -730 / -450 240 / 240 Weight last 48 hrs Weight 111.402 kg Weight 112.309 kg Physical Exam Const: COMMON NORMALS: no acute distress and patient oriented x3 HENMT: COMMON NORMALS: normocephalic HEAD & SCALP: normocephalic Neck/C-Spine: COMMON NORMALS: no JVD Resp: COMMON NORMALS: normal respiratory effort, No retractions, No use of accessory muscles and clear to auscultation bilaterally AUSCULTATION: clear to auscultation bilaterally Cardio: COMMON NORMALS: no JVD, regular rate, regular rhythm, S1 normal heart sound present and S2 normal heart sound present RATE: regular rate RHYTHM: regular rhythm HEART SOUNDS: S1 normal heart sound present and S2 normal heart sound present GI: COMMON NORMALS: Normal to inspection, nondistended, normoactive bowel sounds present, Soft to palpation, non-tender, No hepatosplenomegaly present, no masses and no bruits PALPATION: Yes Soft to palpation and Yes No hepatosplenomegaly present Extremity: COMMON NORMALS: capillary refill normal, no clubbing, cyanosis or edema, no calf tenderness and no pedal edema Neuro: COMMON NORMALS: patient oriented x3 Psych: COMMON NORMALS: mental status grossly normal Data : 10/17/19 04:01 10/17/19 04:01 Micro: Microbiology 10/16/19 12:05 Stool Lactoferrin - Final Stool Enteric Pathogens (PCR) - Final C.difficile Toxin B Gene (PCR) - Final Occult Blood (FIT) - Final 10/12/19 17:39 Urine Culture - Final Urine,Clean Catch Staphylococcus warneri A&P Assessment and plan (1) Atrial fibrillation with rapid ventricular response: Status: Acute (2) Supratherapeutic INR: Status: Acute (3) Shortness of breath: Status: Acute (4) CHF (congestive heart failure): Status: Acute Qualifiers: Heart failure type: diastolic Heart failure chronicity: chronic Qualified Code(s): I50.32 - Chronic diastolic (congestive) heart failure (5) CAD (coronary artery disease): Status: Acute (6) Acute kidney injury: Status: Acute (7) Acute hyponatremia: Status: Acute (8) Thrombocytopenia: Status: Acute (9) Neutropenia: Status: Acute (10) Leukopenia: Status: Acute (11) Benign essential HTN: Status: Acute (12) Dyslipidemia (high LDL; low HDL): Status: Acute (13) Alcohol consumption binge drinking: Status: Acute (14) Smoking addiction: Status: Acute (15) Cystitis: Status: Acute (16) Hypoxia: -Requiring up to 3 to 4 L of oxygen -Etiology likely secondary to COPD -Lungs are clear to auscultation bilaterally -CT chest negative for any pneumonia, atelectasis Status: Acute Additional A&P Information Atrial fibrillation with rapid ventricular response: Heart rates are ranging machine 80s to 100 Continue Cardizem 60 every 6 hours Increase metoprolol to 50 twice daily Patient is on Coumadin at home. She states she takes 3 mg 7 days a week. For now we will hold off on Coumadin as she is thrombocytopenic and anemic Supratherapeutic INR: Goal INR 2-2.5. INR 1.26 Shortness of breath: Likely secondary COPD exacerbation -Clinically she is doing well, no shortness of breath currently, no shortness of breath with exertion, afebrile, normotensive -But she is requiring up to 3 L of oxygen, likely be secondary to COPD Patient is afebrile but does have leukopenia, thrombocytopenia, neutropenia which are all new. CT abdomen no acute findings CT of the chest no acute findings, no consolidation, no pleural effusion Rapid COVID-19 negative, COVID-19 PCR negative DuoNeb's every 6 hour, budesonide twice daily for now. Oxygen supplementation keeping saturation over 90%. Patient does have history of congestive heart failure in the past with significant diastolic type. Patient will require oxygen on discharge Urine culture showing Staphylococcus warneri, switch to Bactrim Congestive heart failure: Last echocardiogram from August 2018 shows an EF of 65%, biatrial enlargement, moderate TR, PASP of 33 mmHg. Stress test done in August 2018 showed myocardial perfusion imaging revealing a small to moderate decrease to tracer uptake in RCA territory. EF 58%. Patient takes 80 mg Lasix at home daily. Continue Lasix 40 p.o. twice daily Pancytopenia likely secondary to alcohol abuse, and platelet clumping Patient's peripheral smear does showed blast, some platelet clumping Does have absolute neutropenia, with blast cells seen in the differential and severe HIV, hepatitis, TSH, B12, folate, iron studies, renal function within normal limits CTs scan did show mild splenomegaly Repeat COVID-19 negative Tick panel pending, but is on doxycycline in the meantime EBV panel pending For UTI, is on is on Bactrim Hemoglobin 7.6 Platelet count 52713 White blood cell count 4.5 Neutrophils 0.74 Haptoglobin 298, T bili 0.3, LDH 328, Repeat CBC, with peripheral smear as outpatient Continue multivitamin, thiamine Will consider bone marrow biopsy as outpatient I did speak to Dr. Blas about the case, he agrees with above Hold anticoagulation, antiplatelet therapy due to risk of bleeding Urine culture showing Staphylococcus warneri Cystitis: Patient is not giving any current history of dysuria. Did have UTI a week ago for which she was on ciprofloxacin. Given her current neutropenia, urine culture shows to Staphylococcus warneri Continue Bactrim RADHA: Most likely cardiorenal syndrome. Diuretics as above. Strict input output charting. Fluid restriction up to 2000 cc. Hyponatremia: Likely his beers potomania from alcohol consumption Hypertension: Continue home dose of Cardizem, metoprolol. Goal blood pressure less than 140/90 mmHg with mean arterial pressures over 65. Anemia: Most recent EGD in April 25 showed healed duodenal ulcer. Hemoglobin 8.5 today. Could be dilutional. We will continue to monitor hemoglobin levels daily. There is a possibility the patient could be having a slow GI bleed on top of her pancytopenia, although no overt signs of bleeding, will have to continue to monitor hemoglobin closely Patient is not complaining of any black bowel movements for now. Protonix 40 mg bid for now Chronic smoker: Discussed in detail with patient regarding need for smoking cessation. Chronic alcoholism: Alcohol levels normal, CIWA protocol, folic acid, thiamine, multivitamin Continue chronic medications like trazodone, folic acid. Full code. Cardiac diet. We will check lower limb Dopplers if negative for DVTs will start on SCDs, supratherapeutic INR. Attestations Medical Necessity Statement*: Patient requires continued hospitalization due to pancytopenia, anemia, thrombocytopenia Coding Level of Care Code Acute Enterprise Sales Person for Chg Fwd Diagnoses Atrial fibrillation with rapid ventricular response I48.91 Supratherapeutic INR R79.1 Shortness of breath R06.02 CHF (congestive heart failure) I50.32 Heart failure type: diastolic Heart failure chronicity: chronic CAD (coronary artery disease) I25.10 Acute kidney injury N17.9 Acute hyponatremia E87.1 Thrombocytopenia D69.6 Neutropenia D70.9 Leukopenia D72.819 Benign essential HTN I10 Dyslipidemia (high LDL; low HDL) E78.5 Alcohol consumption binge drinking F10.10 Smoking addiction F17.200 Cystitis N30.90 Hypoxia R09.02
--- NOTE | 2019-10-17 15:22 | PC.NURSE ---
patient has been sitting up to chair most of this shift, denies chest pain or discomfort. V/s WNL
--- NOTE | 2019-10-17 16:11 | PC.NURSE ---
Tylenol given for patient complaints of headache, patient reports she gets a headache every evening.
[2019-10-17] MEDS: trazodone 100 mg Tablet 200 MG PO (20:09)
[2019-10-17] MEDS: diphenhydrAMINE 25 mg Capsule PO (20:09)
--- NOTE | 2019-10-17 22:18 | PC.NURSE ---
PT UP IN CHAIR. PT DENIES PAIN AT THIS TIME. PT GOT PRN TRAZODONE. WILL CONTINUE TO MONITOR.
[2019-10-18] VITALS (13 sets, daily range): BP systolic 93–131; BP diastolic 48–70; PULSE 34–117; RESP 16–34; TEMP 36.6–37.1; O2SAT 86–99
[2019-10-18] MEDS: dilTIAZem 60 mg Tablet PO ×3 (02:06→14:44)
[2019-10-18] MEDS: acetaminophen 325 mg Tablet 650 MG PO ×2 (02:06→10:11)
[2019-10-18] MEDS: ipratropium-albuterol 3 mL Neb INHALATION ×2 (03:00→10:06)
[2019-10-18 04:51] LABS: Eosinophils # 0.3 10^3/uL (0.0-0.8); Eosinophils % 5.3 %; Hematocrit 23.7 % (37.0-47.0); Hemoglobin 7.4 g/dL (11.5-15.3); Lymphocytes % 18.9 %; Mean Corpuscular HGB Conc 31.2 g/dL (30.0-36.0); Mean Corpuscular Volume 86.5 fL (81-99); Monocytes # 2.8 10^3/uL (0.2-0.9); Monocytes % 54.8 %; Neutrophils # 1.05 10^3/uL (1.8-7.7); Neutrophils % 20.8 %; Nucleated Red Blood Cells % 0 %; Red Blood Count 2.74 10^6/uL (4.1-5.3); Red Cell Distribution Width 26.8 % (12.1-15.1); White Blood Count 5.1 10^3/uL (4.0-10.0)
[2019-10-18] MEDS: diphenhydrAMINE 25 mg Capsule PO (04:51)
[2019-10-18 05:09] LABS: Alanine Aminotransferase 7 U/L (0-33); Albumin Level 3.1 g/dL (3.5-5.2); Alkaline Phosphatase 105 IU/L (35-105); Anion Gap 12.7 (5-19); Aspartate Amino Transferase 13 U/L (0-32); Blood Urea Nitrogen 14 mg/dL (8-23); Calcium 8.3 mg/dL (8.5-10.5); Carbon Dioxide 22 mmol/L (22-29); Chloride 98 mmol/L (98-107); Globulin 3.5 g/dL (1.3-4.6); Glucose 121 mg/dL (65-115); Osmolality Calculated 265 mOsm/kg (285-295); Potassium 3.7 mmol/L (3.5-5.1); Sodium 129 mmol/L (136-145); Total Bilirubin 0.3 mg/dL (0.15-1.2); Total Protein 6.6 g/dL (6.6-8.7)
[2019-10-18 05:42] LABS: Platelet Count 26 10^3/cmm (130-400); Slide Review Slide Review Perform
--- NOTE | 2019-10-18 06:33 | PC.NURSE ---
PT STATES THAT THEY ARE READY TO GO HOME. PT DENIES PAIN AT THIS TIME. WILL GIVE REPORT TO ON COMING NURSE.
[2019-10-18] MEDS: multivitamin therapeutic Tablet 1 TAB PO (08:21)
[2019-10-18] MEDS: pantoprazole DR 40 mg Tablet PO (08:21)
[2019-10-18] MEDS: atorvastatin 40 mg Tablet 20 MG PO (08:21)
[2019-10-18] MEDS: doxycycline 100 mg Tablet PO (08:21)
[2019-10-18] MEDS: sulfamethoxazole-trimeth DS 160-800 mg Tablet 1 TAB PO (08:21)
[2019-10-18] MEDS: thiamine 100 mg Tablet PO (08:21)
[2019-10-18] MEDS: folic acid 1 mg Tablet PO (08:21)
[2019-10-18] MEDS: metoprolol tartrate 50 mg Tablet PO (08:22)
[2019-10-18] MEDS: ferrous gluconate 324 mg Tablet PO (08:22)
[2019-10-18] MEDS: sodium chloride 0.9% (100 ml) 100 ML (10:53)
--- NOTE | 2019-10-18 11:02 | PM.DCS ---
Discharge Providers Date of Admission: 10/12/19 19:32 Date of Discharge: October 18, 2019 Attending Provider at Admission: Ky Roberson MD Attending Provider at Discharge: Levi Baca MD Primary Care Provider: Aftab Gutierres DO Diagnoses at Discharge Discharge Diagnosis (1) Atrial fibrillation with rapid ventricular response: Status: Acute (2) Supratherapeutic INR: Status: Acute (3) Shortness of breath: Status: Acute (4) CHF (congestive heart failure): Status: Acute Qualifiers: Heart failure type: diastolic Heart failure chronicity: chronic Qualified Code(s): I50.32 - Chronic diastolic (congestive) heart failure (5) CAD (coronary artery disease): Status: Acute (6) Acute kidney injury: Status: Acute (7) Acute hyponatremia: Status: Acute (8) Thrombocytopenia: Status: Acute (9) Neutropenia: Status: Acute (10) Leukopenia: Status: Acute (11) Benign essential HTN: Status: Acute (12) Dyslipidemia (high LDL; low HDL): Status: Acute (13) Alcohol consumption binge drinking: Status: Acute (14) Smoking addiction: Status: Acute (15) Cystitis: Status: Acute (16) Hypoxia: Status: Acute Reason for Visit Reason for Visit: short of breath / weakness Hospital Course Discharge Summary: This is a 73-year-old female with a past medical history of CAD, hypertension, hyperlipidemia, current smoker, history of alcohol abuse, atrial fibrillation on Coumadin, who presents to [facility] due to complaints of shortness of breath Patient was admitted for shortness of breath, acute hypoxic respiratory failure secondary to COPD and CHF and A. fib with RVR For COPD, patient clinically improved with conservative therapy, nebulizer treatment, patient was discharged on 3 L nasal cannula, I suspect that with her chronic COPD patient will require oxygen chronically For CHF, patient received diuretic therapy, strict I's and O's, fluid restrictions, clinically improved, discharged on Lasix 40 mg twice daily, with close follow-up with cardiology as outpatient For A. fib with RVR, patient was managed on her home Cardizem, her metoprolol dose was increased to 50 mg twice daily, her heart rates have been ranged between 80s to 110s, I will have patient follow-up with Dr. Lawson as outpatient for up titration of her rate control medications as needed For atrial fibrillation, patient's Coumadin has been held, due to anemia, thrombocytopenia, INR on discharge is 1.26 Given her anemia of hemoglobin 7.4, thrombocytopenia of 26,000, discussed risks of life-threatening bleeding versus risk of strokes, after discussion risk and benefits of anticoagulation, patient understand risks and benefits, voiced understanding, all questions answered, patient agreed to hold anticoagulation until she sees Dr. Vicente and Dr. Lawson as outpatient, advised if she were to have any stroke like symptoms call 911 During her hospitalization, patient became pancytopenic, hemoglobin is low at 7.4, platelet count as low as 22,000, absolute neutropenia as low as 0.18, no fevers, no chills, blood cultures remain unremarkable, urine cultures stap. warneri, CT of the chest and chest x-ray were unremarkable for focal pneumonias or infectious etiology, stool panel was negative for infectious etiology, mono screen negative, HIV negative, influenza negative, Rickettsia negative, Ehrlichia negative, Lyme negative, COVID negative. No significant medications explain her pancytopenia. EBV and parvo are pending. Patient's peripheral smear showed pancytopenia, leukopenia with absolute neutropenia, normocytic hyperchromic anemia, severe thrombocytopenia with platelet clumping, rare blasts were identified. Currently the etiology of pancytopenia is likely multifactorial, obvious source of pancytopenia is patient's alcohol consumption, she admits to binge drinking of alcohol, 3-4 alcoholic drinks daily, patient was advised to abstain from alcohol consumption. But other possibilities include myelodysplastic syndromes, EBV and parvo as above. Patient will follow-up with Dr. Vicente in 1 week for consideration of bone marrow biopsy. For patient's anemia, hemoglobin is low 7.4, she received 1 unit PRBC, confounding factors is that she had a history of history of duodenal ulcer and bleed, in March 2019, no overt signs of bleeding during this hospital admission, stool was negative for blood, no hemodynamic compromise, no bloody or black stools, no hematemesis, no hemoptysis. I have discharged the patient on Protonix 40 twice daily, monitor hemoglobin in the next 72 hours, with close follow-up with Dr. Vicente as outpatient for consideration of bone marrow biopsy. Patient was advised that if she were to feel lightheaded, dizzy, and any signs of bleeding to come to the emergency room. For patient's thrombocytopenia, platelet count as low as 26,000, on discharge platelet count was 26,000, I believe that likely it is artificially low given severe platelet clumping on peripheral smear, no overt signs of bleeding. Patient's hemolytic work-up, was relatively unremarkable. Patient was advised that if she were to fall to come back to the emergency room immediately. Repeat CBC in 72 hours. For patient's neutropenia, no significant infectious etiology as above, UTI as above, patient remained asymptomatic, no dysuria, no cough, no fevers, no chills, no abdominal pain, no diarrhea on discharge patient's white blood cell count was 5.1, number neutrophils 1.05. Patient was advised to socially isolate, handwashing, facemasks, follow-up with Dr. Vicente in 72 hours. If she were to have fevers, chills to come to the emergency room. I have discharged patient on 3 remaining days of doxycycline and Bactrim for coverage for possible tickborne illness and her UTI. Physical Exam Const: COMMON NORMALS: no acute distress and patient oriented x3 HENMT: COMMON NORMALS: normocephalic HEAD & SCALP: normocephalic Neck/C-Spine: COMMON NORMALS: no JVD Resp: COMMON NORMALS: normal respiratory effort, No retractions, No use of accessory muscles and clear to auscultation bilaterally AUSCULTATION: clear to auscultation bilaterally Cardio: COMMON NORMALS: no JVD, regular rate, regular rhythm, S1 normal heart sound present and S2 normal heart sound present RATE: regular rate RHYTHM: regular rhythm HEART SOUNDS: S1 normal heart sound present and S2 normal heart sound present GI: COMMON NORMALS: Normal to inspection, nondistended, normoactive bowel sounds present, Soft to palpation, non-tender, No hepatosplenomegaly present, no masses and no bruits PALPATION: Yes Soft to palpation and Yes No hepatosplenomegaly present Extremity: COMMON NORMALS: capillary refill normal, no clubbing, cyanosis or edema, no calf tenderness and no pedal edema Neuro: COMMON NORMALS: patient oriented x3 Psych: COMMON NORMALS: mental status grossly normal Discharge Data Data Completed and Pending: Completed Studies During Hospitalization Category Date Time Status CT abdomen pelvis wo con [id number] Urge nt Cat Scan 10/12/19 17:[address] chest wo con 7 1250 Urgent Cat Scan 10/12/19 16:45 Completed XR chest 1V yola ble [id number] Urgent Exams 10/12/19 11:54 Completed Pending at discharge Category Date Time Status Complete Blood Co unt w/Auto AM LABS Lab 10/19/19 04:00 Ordered Complete Blood Co unt w/Auto AM LABS Lab 10/20/19 04:00 Ordered Comprehensive Met abolic Panel AM LA BS Lab 10/19/19 04:00 Ordered Comprehensive Met abolic Panel AM LA BS Lab 10/20/19 04:00 Ordered EBV IGG & IGM Sta t Lab 10/16/19 04:05 Received Miscellaneous Bren t Routine Lab 10/18/19 04:37 Received Miscellaneous Bren t Stat Lab 10/18/19 04:37 Received Sputum Culture an d Gram Stain Stat Lab 10/12/19 19:00 Uncollected Labs from last 24 hours 10/18/19 10/18/19 10/18/19 08:47 04:37 04:37 WBC RBC Hgb Hct MCV MCH MCHC RDW Plt Count MPV Neut % (Auto) Lymph % (Auto) [place] % (Auto) Eos % (Auto) Baso % (Auto) Neut # (Auto) Lymph # (Auto) [place] # (Auto) Eos # (Auto) Baso # (Auto) Nucleated RBC % (a uto) Nucleated RBCs # Sodium Potassium Chloride Carbon Dioxide Anion Gap BUN Creatinine GFR Calculation Glucose Calculated Osmolal ity Calcium Total Bilirubin AST ALT Alkaline Phosphata se Total Protein Albumin Globulin Misc Test Referenc e Pending Pending Blood Type A Positive Rho(D) Type Positive Antibody Screen Negative Crossmatch See Detail 10/18/19 10/18/19 04:17 04:17 WBC 5.1 RBC 2.74 L Hgb 7.4 L Hct 23.7 L MCV 86.5 MCH 27.0 L MCHC 31.2 RDW 26.8 H Plt Count 26 L* MPV Not Reportable Neut % (Auto) 20.8 Lymph % (Auto) 18.9 [place] % (Auto) 54.8 Eos % (Auto) 5.3 Baso % (Auto) 0.0 Neut # (Auto) 1.05 L Lymph # (Auto) 1.0 [place] # (Auto) 2.8 H Eos # (Auto) 0.3 Baso # (Auto) 0.0 Nucleated RBC % (a uto) 0 Nucleated RBCs # 0.0 Sodium 129 L Potassium 3.7 Chloride 98 Carbon Dioxide 22 Anion Gap 12.7 BUN 14 Creatinine 1.4 H GFR Calculation Not Reportable Glucose 121 H Calculated Osmolal ity 265 L Calcium 8.3 L Total Bilirubin 0.3 AST 13 ALT 7 Alkaline Phosphata se 105 Total Protein 6.6 Albumin 3.1 L Globulin 3.5 Misc Test Referenc e Blood Type Rho(D) Type Antibody Screen Crossmatch Vitals: Last Vital Signs Temp 98.2 F 10/18/19 11:00 Pulse 105 H 10/18/19 11:00 Resp 20 H 10/18/19 11:00 BP 94/58 10/18/19 11:00 Pulse Ox 86 L 10/18/19 10:10 Discharge Plan Discharge Patient Disposition: Home Condition: Stable Prescriptions: New furosemide 40 mg Tablet 40 mg PO BID@08,16 30 Days Qty: 60 RF: 0 doxycycline monohydrate 100 mg Tablet 100 mg PO BID 3 Days Qty: 6 RF: 0 metoprolol tartrate 50 mg Tablet 50 mg PO BID 30 Days Qty: 60 RF: 0 ferrous gluconate 324 mg (37.5 mg iron) Tablet 324 mg PO BIDWM 30 Days Qty: 60 RF: 0 sulfamethoxazole-trimethoprim 800-160 mg Tablet 1 tab PO BID 3 Days Qty: 6 RF: 0 pantoprazole 40 mg Tablet,Delayed Release (Dr/Ec) 40 mg PO BID 30 Days Qty: 60 RF: 0 Vitamin B-1 (mononitrate) 100 mg Tablet 100 mg PO DAILY 30 Days Qty: 30 RF: 0 Thera 400 mcg Tablet 1 tab PO DAILY 30 Days Qty: 30 RF: 0 Continued diphenhydramine HCl [Allergy (diphenhydramine)] 25 mg capsule 25 mg PO Q6H PRN (Reason: Allergy Symptoms) RF: 0 nitroglycerin [Nitrostat] 0.4 mg tablet, sublingual 0.4 mg SUBLINGUAL Q5M PRN (Reason: Chest Pain) RF: 0 rosuvastatin [Crestor] 5 mg tablet 5 mg PO QDAY RF: 0 nortriptyline 25 mg capsule 25 mg PO TID Qty: 270 RF: 3 potassium chloride 10 mEq tablet extended release 60 meq PO DAILY Qty: 90 RF: 11 ergocalciferol (vitamin D2) 1,250 mcg (50,000 unit) capsule 1,250 mcg PO .weekly Qty: 20 RF: 3 folic acid 1 mg tablet 1 mg PO DAILY Qty: 30 RF: 11 trazodone 100 mg tablet See Rx Instructions .ROUTE .COMPLEX Qty: 180 RF: 0 Cartia XT 120 mg capsule,extended release 24hr 120 mg PO BID 30 Days Qty: 180 RF: 3 Held warfarin 3 mg tablet See Rx Instructions .ROUTE .COMPLEX Qty: 90 RF: 3 Hold Instructions: Resume on 11/01/19. until seen by Dr. Lawson and Dr. Vicente Discontinued metoprolol tartrate 50 mg tablet 50 mg PO .at hs RF: 0 ibuprofen 600 mg tablet 600 mg PO Q8H PRN (Reason: Pain) RF: 0 furosemide 40 mg tablet See Rx Instructions .ROUTE .COMPLEX Qty: 180 RF: 3 ciprofloxacin HCl [Cipro] 500 mg tablet 500 mg PO BID Qty: 20 RF: 0 Discharge Orders: Discharge Order (Routine); Ordered 10/18/19 Ordered By: Levi Baca Other Ambulatory Orders: Complete Blood Count w/Auto (Routine) Timeframe: 3 Days Location: Determined by Patient Ordered By: Levi Baca Comprehensive Metabolic Panel (Routine) Timeframe: 3 Days Facility: [facility] - Location: Lab - Main Lab Ordered By: Levi Baca Referrals: Radha Lawson MD [Physician] - 4-7 days (You have a hospital follow up with Veronica Salinas at [facility] on October 22, at 9:00am. If you have any questions or concerns please call the office. ) Aftab Gutierres DO [Primary Care Provider] - (You have a hospital follow up with Dr. Gutierres on October 23, at 10:00am. If you have any questions or concerns please call the office. ) Bebeto Vicente MD [Hospitalist] - 1-3 days (Dr. De Leon office will be calling you with an appointment date and time. They are located at the [facility]. If you don't hear from them by Monday, please call the office.) Discharge Diet: Cardiac Discharge Activity: Oxygen as instructed Patient Instructions: Alcoholism, Sulfamethoxazole/Trimethoprim (By mouth), Iron Supplements (By mouth), Metoprolol (By mouth), Furosemide (By mouth), Doxycycline (By mouth), Thiamine (Vitamin B-1) (By mouth), Multivitamins, Adult Formula (By mouth), Pantoprazole (By mouth), Coronary Artery Disease (DC), Alcohol Withdrawal (GEN), Neutropenia (DC), Anemia (DC), Hypoxia (GEN), Thrombocytopenia (DC) Activity Restrictions/Additional Instructions: -Please monitor for bloody or black stools, if so come to the emergency room -Please ambulate carefully, if you fall please come to the emergency room -Maintain social distancing, facemask, handwashing, if you fevers or chills please come to the emergency room -Your Coumadin has been held due to anemia and thrombocytopenia, please follow-up with Dr. Vicente and Dr. Lawson for reinstitution of Coumadin -If you have strokelike symptoms, please call 911 -Please abstain from alcohol consumption -Do not take ibuprofen or NSAIDs Discharge Attestations Time Spent in Discharge Care*: less than 30 min Quality Metrics Clinical Quality Measures During this hospital stay, did patient experience: None Coding Level of Care Code Acute Tableau Analyst for Chg Fwd Diagnoses Atrial fibrillation with rapid ventricular response I48.91 Supratherapeutic INR R79.1 Shortness of breath R06.02 CHF (congestive heart failure) I50.32 Heart failure type: diastolic Heart failure chronicity: chronic CAD (coronary artery disease) I25.10 Acute kidney injury N17.9 Acute hyponatremia E87.1 Thrombocytopenia D69.6 Neutropenia D70.9 Leukopenia D72.819 Benign essential HTN I10 Dyslipidemia (high LDL; low HDL) E78.5 Alcohol consumption binge drinking F10.10 Smoking addiction F17.200 Cystitis N30.90 Hypoxia R09.02
--- NOTE | 2019-10-18 11:09 | PC.NURSE ---
Contacted Dr thayer with concerns of patient having left arm pain during blood transfusion, patient has no other symptoms of reactions Instructions given to give 1 mg morphine IVp x1
[2019-10-18] MEDS: morphine 4 mg/mL SDV 1 mL 1 MG IVP (11:19)
[2019-10-18 13:30] LABS: EBV IGG TEST >750.00 U/mL; EBV IGM TEST <36.00 U/mL
--- NOTE | 2019-10-18 15:16 | PC.NURSE ---
Patient discharge home at this time with home o2 and all prescriptions called in to preferred pharmacy. Discharge instructions given and explained to patient; patient verbalized understanding of all instructions given. patient assisted to wheel chair and accompanied by staff with all belongings and discharge instructions in hand to private vehicle. patient in stable and alert condition.
== END 2019-10-18 15:16 | disposition home or self-care (01) | DRG 308 ==
LOC: ER 16:12 → CSU 17:23
PROVIDERS: Family Medicine; Admitting Provider Student in an Organized Health Care Education/Training Program; PCP Family Medicine; Visit Provider Family Medicine
DX: I48.20 Chronic atrial fibrillation, unspecified (principal); I50.33 Acute on chronic diastolic (congestive) heart failure; J96.01 Acute respiratory failure with hypoxia; N17.9 Acute kidney failure, unspecified; E87.1 Hypo-osmolality and hyponatremia; F10.20 Alcohol dependence, uncomplicated; I11.0 Hypertensive heart disease with heart failure; E78.5 Hyperlipidemia, unspecified; G25.81 Restless legs syndrome; F17.210 Nicotine dependence, cigarettes, uncomplicated; N30.90 Cystitis, unspecified without hematuria; G47.00 Insomnia, unspecified; G62.9 Polyneuropathy, unspecified; M54.5 Low back pain; E55.9 Vitamin D deficiency, unspecified; Z96.651 Presence of right artificial knee joint; Z81.1 Family history of alcohol abuse and dependence; D69.6 Thrombocytopenia, unspecified; D70.9 Neutropenia, unspecified; J44.9 Chronic obstructive pulmonary disease, unspecified; R79.1 Abnormal coagulation profile; D64.9 Anemia, unspecified
CPT/HCPCS: 12345; 36415; 36430; 36600; 71045; 71250; 74176; 80053; 80061; 80307; 80500; 81003; 82274; 82436; 82570; 82607; 82746; 82803; 82805; 83010; 83036; 83540; 83550; 83605; 83615; 83630; 83735; 83880; 84100; 84133; 84145; 84300; 84443; 84484; 85007; 85025; 85027; 85045; 85362; 85378; 85384; 85610; 85651; 85730; 86140; 86308; 86618; 86666; 86705; 86706; 86709; 86747; 86757; 86803; 86850; 86880; 86900; 86920; 86927; 87040; 87077; 87086; 87186; 87340; 87426; 87449; 87493; 87506; 87635; 87641; 87798; 87804; 87806; 93005; 94640; 94664; 96372; 96375; 97110; 97162; 97166; 97530; 97535; 99283; A9281; G0378; J0696; J1160; J1940; J2270; J3411; J3490; P9016; P9017

== ENCOUNTER 2019-10-23 17:27 | Inpatient (IN) | payer MEDICARE, SELFPAY ==
[2019-10-23] VITALS (17 sets, daily range): BP systolic 95–149; BP diastolic 51–99; PULSE 92–134; RESP 17–30; TEMP 36.6–36.7; O2SAT 81–98; BMI 43.3
--- NOTE | 2019-10-23 17:33 | XR_ITS ---
WS: [id number] EXAM: AP CHEST: PORTABLE UPRIGHT DATE OF EXAM: 10/23/2019, 1806 hours COMPARISON: Chest x-ray from 10/12/2019 HISTORY: Patient is 73 years old with dyspnea. FINDINGS: The cardiac silhouette is considered minimally enlarged but similar. The mediastinal contours are similar. Calcified lymph nodes right hilum. The pulmonary vascularity is normal. There has been in terval development of a pneumonia in the right mid and lower chest. Some minimal patchy infiltrate in the left mid and lower chest also suggesting bilateral pneumonia. There is no effusion or pneumotho rax. No acute bony abnormality is seen. XR/XR chest 1V portable [id number] IMPRESSION: Imaging findings felt to represent interval development of bilateral pneumonia most severe in the right lung base.
--- NOTE | 2019-10-23 17:34 | ECG_ITS ---
[facility] Test Date: 2019-10-23 Pat Name: Jazmín Quinteros Department: Room: ICU10 Gender: Female Reprint Sorter: : 1945 Requested By: Lmua Olguin Order Number: [id number] Martinez MD: Radha Lawson M.D. Measurements Intervals Foley Rate: 122 P: IL: -1 QRS: -72 QRSD: 126 T: 119 QT: 322 QTc: 460 Interpretive Statements ATRIAL FIBRILLATION WITH RAPID VENTRICULAR RESPONSE LEFT AXIS DEVIATION [QRS AXIS < -30] LEFT BUNDLE BRANCH BLOCK [120+ ms QRS DURATION, 80+ ms Q/S IN V1/V2, 85+ ms R IN I/aVL/V5/V6] Compared to ECG 10/12/2019 18:17:15 Left bundle-branch block now present Myocardial infarct finding no longer present T-wave abnormality no longer present Possible ischemia no longer present Electronically Signed On 10-24-2019 22:34:07 CDT by Radha Lawson M.D. [id number]
[2019-10-23 18:09] LABS: Hematocrit 23.7 % (37.0-47.0); Hemoglobin 7.5 g/dL (11.5-15.3); Mean Corpuscular HGB Conc 31.6 g/dL (30.0-36.0); Mean Corpuscular Hemoglobin 28.2 pg (28.0-34.0); Mean Corpuscular Volume 89.1 fL (81-99); Mean Platelet Volume 10.6 fL (7.4-10.4); Red Blood Count 2.66 10^6/uL (4.1-5.3); Red Cell Distribution Width 25.9 % (12.1-15.1); White Blood Count 17.3 10^3/uL (4.0-10.0)
[2019-10-23] MEDS: ipratropium-albuterol 3 mL Neb 9 ML INHALATION (18:10)
[2019-10-23 18:19] LABS: INR 1.44 (0.8-1.2)
[2019-10-23 18:26] LABS: ABG PCO2 30.9 mmHg (35-45); Alveolar-Arterial Oxygen Gradi 40.5 mmHg (5-10); Arterial Blood Gas Hematocrit 24.8 % (37-47); Base Excess ABG -4.9 mmol/L (-2.0-2.0); Blood Gas Allen Test Pos; Blood Gas Operator Identificat BD; Blood Gas Sample Site Brachial, left; Blood Gas Sample Type Arterial; Carboxyhemoglobin 1.2 %THgb (0.4-20.1); HCO3 ABG 19.2 mmol/L (22-26); HGB O2 Sat 92.2 % (95-100); Ionized Calcium Level - ABG 1.2 mmol/L (1.1-1.4); Oxygen Device BIPAP; Oxygen Saturation ABG 94.2; PO2 ABG 75.2 mmHg (80.0-100.0); Potassium Level - ABG 4.8 mmol/L (3.5-5.0); Total Hemoglobin 8.1 g/dL (12-16)
[2019-10-23 18:27] LABS: Lactic Sepsis W/Reflex 1.9 mmol/L (0.5-2.2); Troponin(5th) Baseline 15 ng/L (0-10)
--- NOTE | 2019-10-23 18:32 | W.ED.SOB ---
HPI - SOB/Dyspnea General: Chief Complaint: Shortness of Breath/Dyspnea Stated Complaint: Shortness of breath Time Seen by Provider: 10/23/19 17:29 Source: patient and EMS Mode of arrival: EMS Limitations: physical limitation (Respiratory distress) History of Present Illness: HPI Narrative: Jazmín is a 73-year-old female who comes in by EMS with report of shortness of breath. She called 911 and first responders found her to be hypoxic with a pulse ox in the 60s on her 3 L nasal cannula oxygen. EMS arrived and then [facility] was called the patient was placed on a nonrebreather for a time. Here she continues to be short of breath with conversational dyspnea. She states she is been short of breath ever since she left the hospital. Patient denies any chest pain. She denies any cough or fever. History is limited secondary to patient's respiratory distress. Review of Systems General: Reports: ROS unobtainable due to medical condition PFS ED PFSH: Medical History Alcohol consumption binge drinking Atrial fibrillation, chronic Benign essential HTN CHF (congestive heart failure) Dyslipidemia Dyslipidemia (high LDL; low HDL) Hyperglycemia Patient declined Hypertension Insomnia Lower extremity edema Neuropathy Right lumbar pain RLS (restless legs syndrome) Sacro-iliac pain Smoking addiction Vitamin D deficiency Surgical History H/O esophagogastroduodenoscopy 04/25/2019: Healed duodenal ulcer H/O tubal ligation History of cataract extraction (~2018) History of colon surgery History of hysterectomy History of knee replacement (~2006) right knee Status post colonoscopy 04/25/2019: Diverticulosis and internal hemorrhoids Family History Mother Guillain Gonzalez? syndrome Father Alcoholism Social History Smoking and tobacco status: current every day smoker cigarettes Packs smoked per day: 2 Alcohol intake: current Alcohol intake frequency: 3 or more drinks per day Desire information about alcohol rehabilitation?: Yes (has not drank in 3 weeks) Marital status: Current occupational status: retired Physical Exam Const: COMMON NORMALS: patient oriented x3 GENERAL APPEARANCE: in distress HENMT: COMMON NORMALS: normocephalic, atraumatic, external ears normal, EAC's normal and Normal external nose present HEAD & SCALP: normal to inspection, normocephalic and atraumatic FACE & SINUS: normal facial exam and face symmetric NOSE: Normal external nose present and Normal nares present EXTERNAL EAR: Yes external ears normal EXTERNAL AUDITORY CANAL: EAC's normal MOUTH: Normal oral and palatal mucosa present, lip normal and tongue normal Eye: COMMON NORMALS: Equal, round and reactive pupils present and conjunctivae normal GENERAL EYE: appearance normal, both eyes and all related structures ALIGNMENT: Yes alignment normal PERIORBITAL: periorbital findings normal EYELID: eyelids normal CONJUNCTIVA: Yes conjunctivae normal SCLERA: sclerae normal PUPIL: Yes Equal, round and reactive pupils present Neck/C-Spine: COMMON NORMALS: full ROM, no lymphadenopathy, supple, no meningeal signs and no JVD GENERAL: Yes normal visual inspection and Yes trachea midline Chest: COMMONS NORMALS: normal inspection of the chest and normal palpation of entire chest wall Resp: COMMON NORMALS: No retractions and clear to auscultation bilaterally EFFORT & INSPECTION: Yes symmetric chest movement, Yes respiratory distress and Yes labored AUSCULTATION: clear to auscultation bilaterally, no crackles, rales, rhonchi and wheezes Cardio: COMMON NORMALS: no JVD, regular rhythm, S1 normal heart sound present and S2 normal heart sound present RATE: tachycardic RHYTHM: regular rhythm and abnormal rhythm irregularly irregular HEART SOUNDS: S1 normal heart sound present, S2 normal heart sound present, no click, no gallops, no murmurs, no rubs and abnormal split S2 GI: COMMON NORMALS: Soft to palpation and No hepatosplenomegaly present PALPATION: Yes Soft to palpation, No Tenderness to palpation present (GI), No Guarding due to palpation present (GI), No Rigid due to palpation, Yes No hepatosplenomegaly present, No Hernia present, No Palpable mass present and No Pulsatile mass present : COMMON NORMALS: Yes no CVA tenderness BLADDER/KIDNEY EXAM: Yes no CVA tenderness EXTERNAL FEMALE EXAM: No Hernia present Back/Pelvis: COMMON NORMALS: no CVA tenderness, thoracic and lumbar spine normal to inspection, no thoracic nor lumbar tenderness and thoraco-lumbar ROM normal Extremity: COMMON NORMALS: normal to inspection, full ROM, capillary refill normal, no joint enlargement, no clubbing, cyanosis or edema and no calf tenderness Neuro: COMMON NORMALS: patient oriented x3, CN's II-XII intact bilaterally, moves all extremities, no focal motor deficits and no sensory deficits noted MENINGEAL SIGNS: Yes no meningeal signs SPEECH: speech normal Skin: COMMON NORMALS: turgor normal, no jaundice, no petechiae and no mottling NARRATIVE SKIN EXAM: Multiple bruises of different age noted. GENERAL SKIN EXAM: turgor normal Course Vital Signs: Vital signs: Vital Signs Temperature 97.8 F 10/23/19 17:27 Pulse Rate 126 H 10/23/19 18:20 Respiratory Rate 30 H 10/23/19 18:20 Blood Pressure 107/67 10/23/19 17:27 Pulse Oximetry 93 10/23/19 18:20 MDM - SOB/Dyspnea MDM Narrative: Medical decision making narrative: The case was reviewed with Dr. Roy, he agrees admit to the ICU. Currently the patient is better with improved heart rate and her blood pressure is stable. She been treated with antibiotics for pneumonia. She is refusing to wear the BiPAP despite our discussions her about the importance of this. Just continue to monitor and support her as best as possible because at this time she is refusing to wear it. Lab Data: Attestation: I reviewed the patient's lab results. Labs: Lab Results 10/23/19 10/23/19 10/23/19 Range/Units 18:00 18:00 18:00 WBC 17.3 H (4.0-10.0) 10^3/ uL RBC 2.66 L (4.1-5.3) 10^6/u L Hgb 7.5 L (11.5-15.3) g/dL Hct 23.7 L (37.0-47.0) % MCV 89.1 (81-99) fL MCH 28.2 (28.0-34.0) pg MCHC 31.6 (30.0-36.0) g/dL RDW 25.9 H (12.1-15.1) % Plt Count 21 L* (130-400) 10^3/c mm MPV 10.6 H (7.4-10.4) fL Lymph % (Auto) Not Reportable Screven % (Auto) Not Reportable Lymph # (Auto) Not Reportable [place] # (Auto) Not Reportable Total Counted 100 (0-100) Atypical Lymphs % 50.0 H (0-5) % Absolute Neutrophi ls 1.6 (1.4-6.5) 10^3/c mm Segmented Neutroph ils 9 % Abs Segm Neuts (Ma n) 1.6 (1.6-7.1) 10/cmm Band Neutrophils 0.0 % Abs Band Neuts (Ma n) 0.0 (0.0-1.2) 10^3/c mm Absolute Lymphocyt es 14.4 H (1.2-3.4) 10^3/c mm Lymphocytes (Manua l) 33 % Monocytes (Manual) 7.0 % Absolute Monocytes 1.2 H (0.1-0.6) 10^3/c mm Metamyelocytes 1.0 % Platelet Estimate Decreased L (Normal) Poikilocytosis 1+ H PT 18.00 H (12.1-14.9) SECO NDS INR 1.44 H (0.8-1.2) Specimen Type Sample Site ABG pH (7.35-7.45) ABG pCO2 (35-45) mmHg ABG pO2 (80.0-100.0) mmH g ABG HCO3 (22-26) mmol/L ABG O2 Saturation ABG Base Excess (-2.0-2.0) mmol/ L Gopi Test A-a O2 Gradient (5-10) mmHg Hematocrit (37-47) % Hgb O2 Saturation (95-100) % Carboxyhemoglobin (0.4-20.1) %THgb Methemoglobin (0.4-1.5) % Total Hemoglobin (12-16) g/dL Ionized Calcium (1.1-1.4) mmol/L O2 Delivery Device FiO2 % Senior Internal Auditor ID Sodium 122 L (136-145) mmol/L Potassium 4.9 (3.5-5.1) mmol/L Chloride 91 L (98-107) mmol/L Carbon Dioxide 19 L (22-29) mmol/L Anion Gap 16.9 (5-19) BUN 22 (8-23) mg/dL Creatinine 1.6 H (0.5-0.9) mg/dL GFR Calculation Not Reportable Glucose 131 H (65-115) mg/dL Calculated Osmolal ity 252 L (285-295) mOsm/k g Lactic Acid (0.5-2.2) mmol/L Calcium 8.4 L (8.5-10.5) mg/dL Magnesium 1.6 L (1.7-2.3) mg/dL Total Bilirubin 0.6 (0.15-1.2) mg/dL AST 23 (0-32) U/L ALT 13 (0-33) U/L Alkaline Phosphata se 131 H (35-105) IU/L Troponin T Baselin e (0-10) ng/L NT-Pro-B Natriuret Pep 5293 H (0-125) pg/mL Total Protein 6.7 (6.6-8.7) g/dL Albumin 2.8 L (3.5-5.2) g/dL Globulin 3.9 (1.3-4.6) g/dL TSH 2.48 (0.27-4.20) uIU/ mL 10/23/19 10/23/19 10/23/19 Range/Units 18:00 18:00 18:15 WBC (4.0-10.0) 10^3/ uL RBC (4.1-5.3) 10^6/u L Hgb (11.5-15.3) g/dL Hct (37.0-47.0) % MCV (81-99) fL MCH (28.0-34.0) pg MCHC (30.0-36.0) g/dL RDW (12.1-15.1) % Plt Count (130-400) 10^3/c mm MPV (7.4-10.4) fL Lymph % (Auto) Screven % (Auto) Lymph # (Auto) Screven # (Auto) Total Counted (0-100) Atypical Lymphs % (0-5) % Absolute Neutrophi ls (1.4-6.5) 10^3/c mm Segmented Neutroph ils % Abs Segm Neuts (Ma n) (1.6-7.1) 10/cmm Band Neutrophils % Abs Band Neuts (Ma n) (0.0-1.2) 10^3/c mm Absolute Lymphocyt es (1.2-3.4) 10^3/c mm Lymphocytes (Manua l) % Monocytes (Manual) % Absolute Monocytes (0.1-0.6) 10^3/c mm Metamyelocytes % Platelet Estimate (Normal) Poikilocytosis PT (12.1-14.9) SECO NDS INR (0.8-1.2) Specimen Type Arterial Sample Site Brachial, left ABG pH 7.40 (7.35-7.45) ABG pCO2 30.9 L (35-45) mmHg ABG pO2 75.2 L (80.0-100.0) mmH g ABG HCO3 19.2 L (22-26) mmol/L ABG O2 Saturation 94.2 ABG Base Excess -4.9 L (-2.0-2.0) mmol/ L Gopi Test Pos A-a O2 Gradient 40.5 H (5-10) mmHg Hematocrit 24.8 L (37-47) % Hgb O2 Saturation 92.2 L (95-100) % Carboxyhemoglobin 1.2 (0.4-20.1) %THgb Methemoglobin 1.0 (0.4-1.5) % Total Hemoglobin 8.1 L (12-16) g/dL Ionized Calcium 1.2 (1.1-1.4) mmol/L O2 Delivery Device Bipap FiO2 60.0 % Senior Internal Auditor ID Bd Sodium 122.0 L (136-145) mmol/L Potassium 4.8 (3.5-5.1) mmol/L Chloride (98-107) mmol/L Carbon Dioxide (22-29) mmol/L Anion Gap (5-19) BUN (8-23) mg/dL Creatinine (0.5-0.9) mg/dL GFR Calculation Glucose 134.0 H (65-115) mg/dL Calculated Osmolal ity (285-295) mOsm/k g Lactic Acid 1.9 (0.5-2.2) mmol/L Calcium (8.5-10.5) mg/dL Magnesium (1.7-2.3) mg/dL Total Bilirubin (0.15-1.2) mg/dL AST (0-32) U/L ALT (0-33) U/L Alkaline Phosphata se (35-105) IU/L Troponin T Baselin e 15 H (0-10) ng/L NT-Pro-B Natriuret Pep (0-125) pg/mL Total Protein (6.6-8.7) g/dL Albumin (3.5-5.2) g/dL Globulin (1.3-4.6) g/dL TSH (0.27-4.20) uIU/ mL Imaging Data^: CXR: Attestation: I personally reviewed and interpreted this imaging study as follows: My impression: Cardiomegaly with mild pulmonary vascular congestion. Right lower lobe infiltrate. EKG Data^: EKG 1: Attestation: I personally reviewed and interpreted this EKG as follows: EKG Interpretation Date: 10/23/19 EKG interpretation time: 18:49 Interpretation: Atrial fibrillation with rapid ventricular response at 122 beats a minute, left bundle branch block. Discharge Plan Discharge Patient Disposition: Admitted As Inpatient Clinical Impression: Sepsis with acute hypoxic respiratory failure, Pneumonia, Atrial fibrillation with rapid ventricular response Condition: Stable Prescriptions: No Action diphenhydramine HCl [Allergy (diphenhydramine)] 25 mg capsule 25 mg PO Q6H PRN (Reason: Allergy Symptoms) RF: 0 nitroglycerin [Nitrostat] 0.4 mg tablet, sublingual 0.4 mg SUBLINGUAL Q5M PRN (Reason: Chest Pain) RF: 0 rosuvastatin [Crestor] 5 mg tablet 5 mg PO QDAY RF: 0 nortriptyline 25 mg capsule 25 mg PO TID Qty: 270 RF: 3 potassium chloride 10 mEq tablet extended release 60 meq PO DAILY Qty: 90 RF: 11 ergocalciferol (vitamin D2) 1,250 mcg (50,000 unit) capsule 1,250 mcg PO .weekly Qty: 20 RF: 3 warfarin 3 mg tablet See Rx Instructions .ROUTE .COMPLEX Qty: 90 RF: 3 Hold Instructions: Resume on 11/01/19. until seen by Dr. Lawson and Dr. Vicente trazodone 100 mg tablet See Rx Instructions .ROUTE .COMPLEX Qty: 180 RF: 0 furosemide 40 mg Tablet 40 mg PO BID@08,16 30 Days Qty: 60 RF: 0 metoprolol tartrate 50 mg Tablet 50 mg PO BID 30 Days Qty: 60 RF: 0 ferrous gluconate 324 mg (37.5 mg iron) Tablet 324 mg PO BIDWM 30 Days Qty: 60 RF: 0 pantoprazole 40 mg Tablet,Delayed Release (Dr/Ec) 40 mg PO BID 30 Days Qty: 60 RF: 0 Vitamin B-1 (mononitrate) 100 mg Tablet 100 mg PO DAILY 30 Days Qty: 30 RF: 0 Thera 400 mcg Tablet 1 tab PO DAILY 30 Days Qty: 30 RF: 0 Cartia XT 120 mg capsule,extended release 24hr 120 mg PO BID 30 Days Qty: 180 RF: 3 multivitamin Capsule 1 cap PO DAILY 30 Days Qty: 30 RF: 0 folic acid 1 mg tablet 1 mg PO DAILY 30 Days Qty: 30 RF: 11 Referrals: Aftab Gutierres DO [Primary Care Provider] - Coding Level of Care Code ED Field Merchandiser for Chg Fwd Exam Comprehensive
[2019-10-23 18:35] LABS: Alanine Aminotransferase 13 U/L (0-33); Albumin Level 2.8 g/dL (3.5-5.2); Alkaline Phosphatase 131 IU/L (35-105); Anion Gap 16.9 (5-19); Aspartate Amino Transferase 23 U/L (0-32); Blood Urea Nitrogen 22 mg/dL (8-23); Calcium 8.4 mg/dL (8.5-10.5); Carbon Dioxide 19 mmol/L (22-29); Chloride 91 mmol/L (98-107); Globulin 3.9 g/dL (1.3-4.6); Glucose 131 mg/dL (65-115); Magnesium 1.6 mg/dL (1.7-2.3); NT Pro B Type Natriuretic Pept 5293 pg/mL (0-125); Osmolality Calculated 252 mOsm/kg (285-295); Potassium 4.9 mmol/L (3.5-5.1); Sodium 122 mmol/L (136-145); Thyroid Stimulating Hormone 2.48 uIU/mL (0.27-4.20); Total Bilirubin 0.6 mg/dL (0.15-1.2); Total Protein 6.7 g/dL (6.6-8.7)
[2019-10-23] MEDS: ondansetron 2 mg/ML SDV 2 mL 4 MG IVP (18:39)
[2019-10-23 18:40] LABS: Platelet Count 21 10^3/cmm (130-400); Slide Review Slide Review Perform
[2019-10-23 18:50] LABS: Absolute Neutrophil 1.6 10^3/cmm (1.4-6.5); Absolute Segmented Neutrophil 1.6 10/cmm (1.6-7.1); Lymphocytes 33 %; Lymphocytes Absolute 14.4 10^3/cmm (1.2-3.4); Monocytes Absolute 1.2 10^3/cmm (0.1-0.6); Platelet Estimate Decreased (Normal); Segmented Neutrophils 9 %; Total Cells Counted 100 (0-100)
[2019-10-23 18:52] LABS: Poikilocytosis 1+
--- NOTE | 2019-10-23 19:22 | PM.HP ---
Providers/Chief Complaint Primary Care Provider: Aftab Gutierres DO Chief Complaint: Shortness of breath History of Present Illness Jazmín Quinteros is a 73 year old female with a past medical history of CAD, hypertension, hyperlipidemia, current smoker, history of alcohol abuse (binge drinking), atrial fibrillation, Coumadin was held on previous admission because of pancytopenia, extensive work-up was done for pancytopenia, coming in today for worsening shortness of breath. Patient is stating that she has not been able to follow-up with Dr. Garcia. When she got discharged to home she felt better for 1 or 2 days and then started experiencing shortness of breath on exertion and mild activities, then she started experiencing orthopnea, PND, she did not notice any fever, she has chronic cough which has increased as well, she is bringing up mild phlegm with it which is clear. She is denying nausea, vomiting, chest pain, palpitations, dizziness, dysuria, endorsing constipation which she is attributing to iron tablets. She is currently smoking 2 packs/day, her last alcoholic drink was about 3 weeks ago. Her called EMS for worsening of her symptoms, when EMS arrived he was saturating 60% on 3 L, she was put on nonrebreather mask on arrival to the ER he was saturating 100% and for respite distress she was put on BiPAP which she refused, at the time of my evaluation she was on 3 L nasal cannula Diagnosis in the ER revealed leukocytosis, chronic normocytic anemia, thrombocytopenia, hyponatremia, atypical lymphocytosis, previous imaging revealed splenomegaly, IgG positive for EBV and H. pylori She is off Coumadin, INR subtherapeutic Currently A. fib RVR heart rate in 150s on Cardizem drip Acute on chronic kidney disease, mild exacerbation of CHF evident on chest x-ray, right lower lobe pneumonia, she has been getting Zosyn in the ER I would add vancomycin and Levaquin SARScoronavirus testing done twice which was negative Of note, patient was discharged on Bactrim for possible tickborne illness and doxycycline, no infectious source of abnormal chemistry and peripheral smear was identified, her because of abnormal peripheral smear was thought to be alcohol abuse. Review of Systems Const: Reports: chills, body aches, fatigue, malaise and change in sleep pattern; Denies: fever(s) or diaphoresis Eyes: Denies: change in vision ENMT: Denies: throat pain Card: Reports: irregular heart rhythm, edema, swelling of feet/ankles, pre-syncope, dyspnea on exertion and orthopnea; Denies: chest pain, palpitations or lightheadedness Resp: Reports: dyspnea and productive cough; Denies: wheezing, pain on inspiration, change in phlegm color, hemoptysis or chest congestion GI: Reports: constipation; Denies: abdominal pain, nausea, vomiting or diarrhea : Denies: flank pain or difficulty voiding Musc: Denies: neck pain Skin/Breast: Reports: lesions and dry skin; Denies: rash Neuro: Denies: headache(s) Psych: Denies: anxiety Endo: Reports: polyuria Ty/Lymph: Reports: easy bruising All/Imm: Denies: urticaria Medications/Allergies Home Medications Medication Instructions Recorded Confirmed Last Taken Type diphenhydramine HCl 25 mg capsule 25 mg PO Q6H PRN 04/02/19 10/12/19 10/11/19 History nitroglycerin 0.4 mg sublingual 0.4 mg SUBLINGUAL Q5M PRN 04/02/19 10/12/19 Unknown History tablet potassium chloride 10 mEq 60 meq PO DAILY #90 tab 04/24/19 10/12/19 10/12/19 Rx tablet,extended release nortriptyline 25 mg capsule 25 mg PO TID #270 cap 05/06/19 10/12/19 10/12/19 Rx ergocalciferol (vitamin D2) 1,250 1,250 mcg PO .weekly #20 cap 05/27/19 10/12/19 10/10/19 Rx mcg (50,000 unit) capsule warfarin 3 mg tablet See Rx Instructions .ROUTE 09/10/19 10/12/19 10/12/19 Rx .COMPLEX #90 tab rosuvastatin 5 mg tablet 5 mg PO QDAY 09/23/19 10/12/19 10/12/19 History trazodone 100 mg tablet See Rx Instructions .ROUTE 09/30/19 10/12/19 10/11/19 Rx .COMPLEX #180 tab diltiazem HCl [Cartia XT] 120 mg PO BID 30 Days #180 cap 10/18/19 Unknown Rx ferrous gluconate 324 mg PO BIDWM 30 Days #60 tab 10/18/19 Unknown Rx folic acid 1 mg PO DAILY 30 Days #30 tab 10/18/19 10/12/19 10/12/19 Rx furosemide 40 mg PO BID@08,16 30 Days #60 tab 10/18/19 Unknown Rx metoprolol tartrate 50 mg PO BID 30 Days #60 tab 10/18/19 Unknown Rx multivitamin 1 cap PO DAILY 30 Days #30 cap 10/18/19 Unknown Rx multivitamin with folic acid 1 tab PO DAILY 30 Days #30 tab 10/18/19 Unknown Rx [Thera] pantoprazole 40 mg PO BID 30 Days #60 tab 10/18/19 Unknown Rx thiamine mononitrate (vit B1) 100 mg PO DAILY 30 Days #30 tab 10/18/19 Unknown Rx [Vitamin B-1 (mononitrate)] Allergies Allergy/AdvReac Type Severity Reaction Status Date / Time meperidine [From Demerol] AdvReac Intermediate ADR-Itching Verified 10/12/19 13:34 PFSH Acute PFSH: Medical History Alcohol consumption binge drinking Atrial fibrillation, chronic Benign essential HTN CHF (congestive heart failure) Dyslipidemia Dyslipidemia (high LDL; low HDL) Hyperglycemia Patient declined Hypertension Insomnia Lower extremity edema Neuropathy Right lumbar pain RLS (restless legs syndrome) Sacro-iliac pain Smoking addiction Vitamin D deficiency Surgical History H/O esophagogastroduodenoscopy 04/25/2019: Healed duodenal ulcer H/O tubal ligation History of cataract extraction (~2018) History of colon surgery History of hysterectomy History of knee replacement (~2006) right knee Status post colonoscopy 04/25/2019: Diverticulosis and internal hemorrhoids Family History Mother Guillain Gonzalez? syndrome Father Alcoholism Social History Smoking and tobacco status: current every day smoker cigarettes Packs smoked per day: 2 Alcohol intake: current Alcohol intake frequency: 3 or more drinks per day Desire information about alcohol rehabilitation?: Yes (has not drank in 3 weeks) Marital status: Current occupational status: retired Vitals/I&O/Wt Last Vital Signs Temp 97.8 F 10/23/19 17:27 Pulse 126 H 10/23/19 18:20 Resp 30 H 10/23/19 18:20 BP 107/67 10/23/19 17:27 Pulse Ox 93 10/23/19 18:20 Weight last 48 hrs Weight 107.501 kg Physical Exam Narrative: EXAM NARRATIVE: Morbidly obese female sitting at her bedside saturating well on 3 to nasal cannula No active respiratory distress A. fib RVR heart rate 150s Cardizem drip at the bedside Patient refused BiPAP usage Clinical signs of congestive heart failure with bilateral lower extremity edema, venous stasis dermatitis S1, S2 variable without active murmur Abdomen soft, distended, visceral obesity, bowel sounds positive, Neurologically nonfocal exam EOMI, PERRLA, no facial asymmetry, no neurological deficit Appropriate mood and affect Lower extremity venous stasis dermatitis, Dorsalis pedis pulses 1+ bilaterally No active signs of ischemia gangrene or lower extremity ulcer Pedal edema positive Data : 10/23/19 18:00 10/23/19 18:00 A&P Assessment and plan (1) Sepsis with acute hypoxic respiratory failure: Status: Acute Qualifiers: Sepsis type: sepsis due to unspecified organism Severe sepsis shock status: without septic shock Qualified Code(s): A41.9 - Sepsis, unspecified organism; R65.20 - Severe sepsis without septic shock; J96.01 - Acute respiratory failure with hypoxia (2) Hospital-acquired pneumonia: Status: Acute (3) Atrial fibrillation with rapid ventricular response: Status: Acute (4) Thrombocytopenia: Status: Acute (5) Phlebitis and thrombophlebitis of deep veins of lower extremities: Status: Acute Qualifiers: Laterality: left Qualified Code(s): I80.202 - Phlebitis and thrombophlebitis of unspecified deep vessels of left lower extremity (6) Alcohol consumption binge drinking: Status: Acute (7) Smoking addiction: Status: Acute (8) Lower extremity edema: Status: Acute (9) Atrial fibrillation, chronic: Status: Acute (10) CHF (congestive heart failure): Status: Acute Qualifiers: Heart failure type: diastolic Heart failure chronicity: chronic Qualified Code(s): I50.32 - Chronic diastolic (congestive) heart failure Additional A&P Information Sepsis with acute on chronic hypoxia secondary to hospital-acquired pneumonia Sepsis criteria met with tachycardia and leukocytosis Patient is afebrile, right lower lobe pneumonia Secondary to CHF judicious use of fluid resuscitation Vancomycin, Zosyn and Levaquin for hospital-acquired pneumonia treatment Legionella, bacterial antigen, sputum culture, blood culture Currently systolic blood pressure around 110, she is on Cardizem drip at the moment we will monitor her hemodynamics in ICU for now Pneumonia severity index moderate Patient is awake alert, currently saturating well on 3 L nasal cannula Chronic A. fib with acute RVR Coumadin has been discontinued for on previous admission currently hemoglobin is 7.5 Patient is complaining of lethargy, fatigue respiratory distress on mild activities, Discussed in detail the risk of stroke versus bleeding especially with underlying thrombocytopenia Rate control with Cardizem drip No chest pain or palpitations, troponin not significantly high Preserved ejection fraction heart failure mild exacerbation By BNP, clinically mild fluid overloaded, I would increase her Lasix to 60 mg instead of 40 mg Atypical lymphocytosis with IgG positive H. pylori and EBV Splenomegaly My differentials would include bone marrow suppression due to alcohol abuse versus MDS Extensive work-up has been done for her pancytopenia in the past Chronic hyponatremia Patient is fluid overloaded History of alcohol binge drinking, last alcoholic drink was 3 weeks ago We will continue diuresis Chronic normocytic anemia History of gastritis and H. pylori IgG positive Continue Protonix Considering symptomatic anemia we will transfuse her with 1 unit of PRBC Lower extremity venous stasis dermatitis With signs of superficial thrombophlebitis, I do suspect it is related to smoking Patient was counseled on smoking cessation DVT prophylaxis SCDs not a candidate to be on anticoagulation because of severe anemia, thrombocytopenia Cardiac diet DNR/DNI: Discussed with the patient in detail Attestations Medical Necessity Statement*: Anticipating stay in the hospital cross more than 2 midnights currently need IV antibiotics for hospital-acquired pneumonia for acute on chronic hypoxic respiratory failure, she is at risk of worsening respiratory distress we will monitor her in ICU overnight and if stable will transfer her to medical floor in the morning Time Spent in Patient Care: (>than 50% of time spent in counselling and/or direct pt care on unit). 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 Fwd Diagnoses Sepsis with acute hypoxic respiratory failure A41.9; R65.20; J96.01 Sepsis type: sepsis due to unspecified organism Severe sepsis shock status: without septic shock Hospital-acquired pneumonia J18.9; Y95 Atrial fibrillation with rapid ventricular response I48.91 Thrombocytopenia D69.6 Phlebitis and thrombophlebitis of deep veins of lower extremities I80.202 Laterality: left Alcohol consumption binge drinking F10.10 Smoking addiction F17.200 Lower extremity edema R60.0 Atrial fibrillation, chronic I48.20 CHF (congestive heart failure) I50.32 Heart failure type: diastolic Heart failure chronicity: chronic
[2019-10-23] MEDS: piperacillin-tazobactam 3.375 GM in sodium chloride 0.9% (plus) 50 ML IV (19:56)
[2019-10-23 22:20] LABS: Bacteria Urine 1+; Bilirubin Urine Neg (NEGATIVE); Blood Urine 3+ (Negative); Glucose Urine UA Norm (Normal); Ketones Urine Negative (Negative); Leukocyte Esterase Urine Negative (Negative); Nitrate Urine Negative (Negative); Protein Urine Trace (Negative); RBC Urine 0-4 /hpf (0-2); Squamous Epithelial Cell Urine 0-4 (0-5); Urine Appearance SL Hazy (CLEAR); Urine Color Yellow (Yellow); Urobilinogen Urine Norm (Negative); WBC Urine 0-4 /hpf (0-5); pH Urine 5 (5-7)
[2019-10-23 22:43] LABS: Troponin 5 2HR 13.29 ng/L (0-10)
[2019-10-23 22:58] LABS: Troponin 5 2HR Delta -1.71 ABS# (0-10)
--- NOTE | 2019-10-23 23:07 | PC.PHAR ---
Vancomycin is dosed at 1000mg IVPB every 24 hours to produce a predicted trough level of 16.32 (population based pharmacokinetic analysis). A trough level has been ordered from the lab to be obtained before the fourth dose to confirm and adjust if needed. The Zosyn is dosed at 3.375gm IVPB every 8 hours on basis of creatinine clearance of 37.196, each dose to be infused over four hours per extended infusion protocol.
[2019-10-23] MEDS: levoFLOXacin 750 mg Tablet PO (23:11)
[2019-10-23] MEDS: ferrous gluconate 324 mg Tablet PO (23:11)
[2019-10-23] MEDS: atorvastatin 40 mg Tablet 20 MG PO (23:11)
[2019-10-24] VITALS (21 sets, daily range): BP systolic 102–155; BP diastolic 67–109; PULSE 77–114; RESP 13–31; TEMP 36.3–37.1; O2SAT 87–98
[2019-10-24] MEDS: vancomycin 1,000 MG in sodium chloride 0.9% 250 ML 250 MG IV ×2 (00:45→23:42)
[2019-10-24] MEDS: morphine 4 mg/mL SDV 1 mL IVP ×2 (01:12→20:21)
[2019-10-24 04:24] LABS: Basophils % 0.1 %; Eosinophils # 0.1 10^3/uL (0.0-0.8); Eosinophils % 0.5 %; Hematocrit 25.8 % (37.0-47.0); Hemoglobin 8.1 g/dL (11.5-15.3); Lymphocytes # 3.5 10^3/uL (0.8-4.8); Lymphocytes % 37.2 %; Mean Corpuscular HGB Conc 31.4 g/dL (30.0-36.0); Mean Corpuscular Hemoglobin 28.5 pg (28.0-34.0); Mean Corpuscular Volume 90.8 fL (81-99); Mean Platelet Volume 10.9 fL (7.4-10.4); Monocytes % 31.5 %; Neutrophils % 5.2 %; Nucleated Red Blood Cells % 0.4 %; Red Blood Count 2.84 10^6/uL (4.1-5.3); Red Cell Distribution Width 24.6 % (12.1-15.1); White Blood Count 9.4 10^3/uL (4.0-10.0)
[2019-10-24] MEDS: piperacillin-tazobactam 3.375 GM in sodium chloride 0.9% (plus) 50 ML IV ×3 (04:42→20:00)
[2019-10-24 04:51] LABS: Anion Gap 14.5 (5-19); Blood Urea Nitrogen 23 mg/dL (8-23); Calcium 8.3 mg/dL (8.5-10.5); Carbon Dioxide 19 mmol/L (22-29); Chloride 96 mmol/L (98-107); Glucose 148 mg/dL (65-115); Osmolality Calculated 257 mOsm/kg (285-295); Potassium 5.5 mmol/L (3.5-5.1); Sodium 124 mmol/L (136-145)
[2019-10-24 05:51] LABS: Slide Review Slide Review Perform
[2019-10-24 05:53] LABS: Neutrophils # 0.49 10^3/uL (1.8-7.7); Platelet Count 20 10^3/cmm (130-400)
[2019-10-24 08:19] LABS: Lactate Dehydrogenase 416 U/L (135-214); Magnesium 1.7 mg/dL (1.7-2.3)
[2019-10-24] MEDS: FUROsemide 40 mg Tablet 60 MG PO (09:02)
[2019-10-24] MEDS: folic acid 1 mg Tablet PO (09:04)
[2019-10-24] MEDS: thiamine 100 mg Tablet PO (09:09)
[2019-10-24] MEDS: metoprolol tartrate 50 mg Tablet PO ×2 (09:11→17:07)
[2019-10-24] MEDS: atorvastatin 40 mg Tablet 20 MG PO (09:15)
[2019-10-24] MEDS: dilTIAZem 30 mg Tablet PO (09:15)
[2019-10-24] MEDS: polyethylene glycol 3350 Pkt 17 gm PO (09:18)
[2019-10-24] MEDS: pantoprazole DR 40 mg Tablet PO (09:18)
[2019-10-24] MEDS: sodium polystyrene sulfonate 15 gm/60 mL Btl PO (09:19)
[2019-10-24 11:25] LABS: Cortisol Random 16.87 ug/mL (2.47-19.5)
--- NOTE | 2019-10-24 12:30 | P.PN_ITS ---
Subjective Subjective: Interval history: Jazmín reports that she is doing okay. She has been short of breath and weak. Her history and physical was reviewed. She is frustrated she is back in the hospital so soon after discharge. She states she has not been drinking any alcohol, and has not drank for at least 3 weeks. Previous alcohol use was heavy. Medications: Reviewed: Yes Vitals/I&O/Wt Last Vital Signs Temp 98.8 F 10/24/19 09:00 Pulse 114 H 10/24/19 11:00 Resp 29 H 10/24/19 11:00 BP 106/76 10/24/19 11:00 Pulse Ox 94 10/24/19 11:00 10/23/19 10/24/19 10/24/19 22:59 06:59 14:59 Intake Total 0 / 0 652.75 / 652.75 410 / 410 Output Total 900 / 900 400 / 400 Balance 0 / 0 -247.25 / -247.25 10 / 10 Weight last 48 hrs Weight 107.501 kg Physical Exam Narrative: EXAM NARRATIVE: General exam is an elderly white female in no apparent distress Cardiovascular irregular rhythm, with slightly accelerated rate. No murmur. Lungs diminished breath sounds bilaterally. I did not auscultate any wheezing. A few fine crackles are present bilaterally. Abdomen is soft with positive bowel sounds Extremities trace bilateral edema Data : 10/24/19 04:11 10/24/19 04:11 Micro: Microbiology 10/23/19 20:10 Legionella Urinary Antigen - Final Urine,Voided Bacterial Antigens - Final 10/23/19 23:56 Blood Culture - Preliminary Blood SPECIMEN COLLECTED 10/23/19 23:56 Blood Culture - Preliminary Blood SPECIMEN COLLECTED A&P Assessment and plan (1) Sepsis with acute hypoxic respiratory failure: She appears to be improving. Oxygen requirement is down to 5 L. Status: Acute Qualifiers: Sepsis type: sepsis due to unspecified organism Severe sepsis shock status: without septic shock Qualified Code(s): A41.9 - Sepsis, unspecified organism; R65.20 - Severe sepsis without septic shock; J96.01 - Acute respiratory failure with hypoxia (2) Hospital-acquired pneumonia: On admission she was treated as a hospital-acquired pneumonia secondary to recent hospitalization, and also concern of neutropenia. She was placed on vancomycin, Zosyn and Levaquin. Await sputum culture and blood culture. Check MRSA PCR Status: Acute (3) Atrial fibrillation with rapid ventricular response: She was placed on a Cardizem drip, in addition to her oral metoprolol. Rate is improved so she was changed to oral Cardizem this morning. This may need to be adjusted further. Status: Acute (4) Thrombocytopenia: Acutely low platelets at 20,000. She was 26,000 on discharge. There was concern during her last hospital stay that this was secondary to acute alcohol bone marrow suppression. However, it is been 3 weeks since her last drink. Her platelet count was normal earlier this year. She is also anemic with a hemoglobin of 8.1 and neutropenic with an ANC count of 490. Atypical lymphs were noted on a manual differential. Therefore secondary to her bone marrow abnormality affecting all 3 lines she will need a bone marrow. I have contacted hematology and hopefully this can be arranged tomorrow. She had significant previous work-up including tick titers, parvovirus, EBV, etc. on her last hospital stay. We will check a respiratory viral panel. I have checked her haptoglobin today, and this is not low. LDH was elevated at 416. Cortisol level 16.87. Reticulocyte count is checked and low for level of anemia. Status: Acute (5) Atrial fibrillation, chronic: Continue metoprolol. Wean off diltiazem drip and initiate Cardizem p.o. Anticoagulation discontinued secondary to risk of bleeding with severe thrombocytopenia. Status: Acute (6) CHF (congestive heart failure): May be secondary to accelerated rate. Echocardiogram 08/22 demonstrated normal EF, moderate TR Continue Lasix at higher dose of 60 mg twice daily Status: Acute Qualifiers: Heart failure type: diastolic Heart failure chronicity: chronic Qualified Code(s): I50.32 - Chronic diastolic (congestive) heart failure Additional A&P Information Anemia. She was transfused 1 unit of packed red blood cells on admission for symptomatic anemia. Will repeat hemoglobin. Possible myelodysplasia. Attempting to arrange bone marrow. Hyponatremia, close follow-up of sodium. Heart failure may be contributing to elevation. Hyperkalemia, Kayexalate ordered. Repeat lab work History of gastritis. Currently on Protonix. As this may cause thrombocytopenia will discontinue this and initiate H2 zara History of gastritis and H. pylori IgG positive Continue Protonix Considering symptomatic anemia we will transfuse her with 1 unit of PRBC Lower extremity venous stasis dermatitis With signs of superficial thrombophlebitis, I do suspect it is related to smoking Patient was counseled on smoking cessation DVT prophylaxis SCDs not a candidate to be on anticoagulation because of severe anemia, thrombocytopenia Cardiac diet DNR/DNI: Discussed with the patient in detail Attestations Medical Necessity Statement*: Needs continued hospital stay for evaluation of pancytopenia, treatment of pneumonia with IV antibiotics. Coding Level of Care Code Acute Director Of Estate for [facility] Fwd Diagnoses Sepsis with acute hypoxic respiratory failure A41.9; R65.20; J96.01 Sepsis type: sepsis due to unspecified organism Severe sepsis shock status: without septic shock Hospital-acquired pneumonia J18.9; Y95 Atrial fibrillation with rapid ventricular response I48.91 Thrombocytopenia D69.6 Atrial fibrillation, chronic I48.20 CHF (congestive heart failure) I50.32 Heart failure type: diastolic Heart failure chronicity: chronic
[2019-10-24] MEDS: dilTIAZem 60 mg Tablet PO ×2 (14:52→20:21)
[2019-10-24] MEDS: famotidine 20 mg/2 mL INJ IVP (14:52)
[2019-10-24 15:28] LABS: Eosinophils # 0.1 10^3/uL (0.0-0.8); Eosinophils % 0.4 %; Hematocrit 26.6 % (37.0-47.0); Hemoglobin 8.6 g/dL (11.5-15.3); Lymphocytes # 3.9 10^3/uL (0.8-4.8); Lymphocytes % 17.6 %; Mean Corpuscular HGB Conc 32.3 g/dL (30.0-36.0); Mean Corpuscular Hemoglobin 28.5 pg (28.0-34.0); Mean Corpuscular Volume 88.1 fL (81-99); Monocytes # 12.2 10^3/uL (0.2-0.9); Monocytes % 54.4 %; Neutrophils # 5.92 10^3/uL (1.8-7.7); Neutrophils % 26.6 %; Nucleated Red Blood Cells # 0.1 /100WBC; Nucleated Red Blood Cells % 0.3 %; Red Blood Count 3.02 10^6/uL (4.1-5.3); Red Cell Distribution Width 24.8 % (12.1-15.1); White Blood Count 22.4 10^3/uL (4.0-10.0)
[2019-10-24 15:44] LABS: Blood Urea Nitrogen 23 mg/dL (8-23); Calcium 8.2 mg/dL (8.5-10.5); Carbon Dioxide 16 mmol/L (22-29); Chloride 94 mmol/L (98-107); Glucose 157 mg/dL (65-115); Osmolality Calculated 256 mOsm/kg (285-295); Sodium 123 mmol/L (136-145)
[2019-10-24 16:09] LABS: Platelet Count 16 10^3/cmm (130-400); Slide Review Slide Review Perform
[2019-10-24] MEDS: FUROsemide 10 mg/mL SDV 10mL 60 MG IVP (17:07)
--- NOTE | 2019-10-24 17:52 | PM.CONSULT ---
Providers/Reason For Consult Consulting Physican/Specialty*: Roselyn Lee DO, telenephrology Reason for Consult*: hyponatremia Requesting Physcian: Jass Zaidi MD Attending Physician: Jass Zaidi MD Primary Care Provider: Aftab Gutierres DO History of Present Illness History of Present Illness Jazmín Quinteros is a 73 year old female who was discharged from hospital 10/18/2019, readmitted with hypoxiayesterday. Underlying O2 dependent COPD, also CHF and pneumonia. + Chronic hyponatremia. Currently appears asymptomatic (alert, appropriate); however, she states a couple of days ago she had an episode where she was unable to speak clearly or complete sentences. Dyspnea has improved since admission. Reports urine is dark. No chest pain or urine complaints. Meds/Allergies Home Medications and Allergies Home Medications Medication Instructions Recorded Confirmed Last Taken Type diphenhydramine HCl 25 mg capsule 25 mg PO Q6H PRN 04/02/19 10/24/19 10/23/19 08:00 History nitroglycerin 0.4 mg sublingual 0.4 mg SUBLINGUAL Q5M PRN 04/02/19 10/24/19 Unknown History tablet potassium chloride 10 mEq 60 meq PO DAILY #90 tab 04/24/19 10/24/19 10/22/19 Rx tablet,extended release nortriptyline 25 mg capsule 25 mg PO TID #270 cap 05/06/19 10/24/19 10/23/19 08:00 Rx ergocalciferol (vitamin D2) 1,250 1,250 mcg PO .weekly #20 cap 05/27/19 10/24/19 10/19/19 08:00 Rx mcg (50,000 unit) capsule warfarin 3 mg tablet See Rx Instructions .ROUTE 09/10/19 10/24/19 10/12/19 Rx .COMPLEX #90 tab rosuvastatin 5 mg tablet 5 mg PO QDAY 09/23/19 10/24/19 10/23/19 History trazodone 100 mg tablet See Rx Instructions .ROUTE 09/30/19 10/24/19 10/22/19 Rx .COMPLEX #180 tab diltiazem HCl [Cartia XT] 120 mg PO BID 30 Days #180 cap 10/18/19 10/24/19 10/23/19 08:00 Rx ferrous gluconate 324 mg PO BIDWM 30 Days #60 tab 10/18/19 10/24/19 10/22/19 Rx folic acid 1 mg PO DAILY 30 Days #30 tab 10/18/19 10/24/19 10/23/19 08:00 Rx furosemide 40 mg PO BID@08,16 30 Days #60 tab 10/18/19 10/24/19 10/23/19 08:00 Rx metoprolol tartrate 50 mg PO BID 30 Days #60 tab 10/18/19 10/24/19 10/23/19 08:00 Rx multivitamin 1 cap PO DAILY 30 Days #30 cap 10/18/19 10/24/19 Unknown Rx multivitamin with folic acid 1 tab PO DAILY 30 Days #30 tab 10/18/19 10/24/19 Unknown Rx [Thera] pantoprazole 40 mg PO BID 30 Days #60 tab 10/18/19 10/24/19 10/23/19 08:00 Rx thiamine mononitrate (vit B1) 100 mg PO DAILY 30 Days #30 tab 10/18/19 10/24/19 10/22/19 Rx [Vitamin B-1 (mononitrate)] Allergies Allergy/AdvReac Type Severity Reaction Status Date / Time meperidine [From Demerol] AdvReac Intermediate ADR-Itching Verified 10/12/19 13:34 Current Medications Current Medications Generic Name Dose Route Start Last Admin Trade Name Freq PRN Reason Stop Dose Admin Atorvastatin Calcium 20 mg 10/23/19 22:47 10/24/19 09:15 Lipitor PO 20 mg DAILY UMANG Administration Diltiazem HCl 60 mg 10/24/19 15:15 10/24/19 14:52 Cardizem PO 60 mg Q6H UMANG Administration Famotidine 20 mg 10/24/19 13:00 10/24/19 14:52 Pepcid Inj IVP 20 mg Q12H UMANG Administration Ferrous Gluconate 324 mg 10/23/19 22:47 10/23/19 23:11 Ferrous Gluconate PO 324 mg Q48H UMANG Administration Folic Acid 1 mg 10/24/19 09:00 10/24/19 09:04 Folic Acid PO 1 mg DAILY UMANG Administration Furosemide 60 mg 10/24/19 16:30 10/24/19 17:07 Lasix IVP 60 mg Q12H UMANG Administration Vancomycin HCl 1,000 mg/ 250 mls @ 250 mls/hr 10/23/19 23:00 10/24/19 01:46 Sodium Chloride IV Infused Q24H UMANG Infusion Protocol As Directed Piperacillin Sod/Tazobactam 50 mls @ 12.5 mls/hr 10/24/19 04:00 10/24/19 16:50 Sod 3.375 gm/ Sodium Chloride IV Infused Q8H UMANG Infusion Protocol As Directed Levofloxacin 750 mg 10/23/19 22:47 10/23/19 23:11 Levaquin PO 750 mg Q48H UMANG Administration Protocol Metoprolol Tartrate 50 mg 10/24/19 09:00 10/24/19 17:07 Lopressor PO 50 mg BID UMANG Administration Morphine Sulfate 4 mg 10/23/19 22:47 10/24/19 01:12 Morphine IVP 4 mg Q4H PRN Administration SEVERE PAIN Polyethylene Glycol 17 gm 10/24/19 09:00 10/24/19 09:18 Miralax PO 17 gm DAILY UMANG Administration Thiamine Mononitrate 100 mg 10/24/19 09:00 10/24/19 09:09 Vitamin B-1 PO 100 mg DAILY UMANG Administration Trazodone HCl 100 mg 10/23/19 21:00 10/24/19 06:18 Desyrel PO Not Given BEDTIME UMANG PFSH Acute PFSH: Medical History Alcohol consumption binge drinking Atrial fibrillation, chronic Benign essential HTN CHF (congestive heart failure) Dyslipidemia Dyslipidemia (high LDL; low HDL) Hyperglycemia Patient declined Hypertension Insomnia Lower extremity edema Neuropathy Right lumbar pain RLS (restless legs syndrome) Sacro-iliac pain Smoking addiction Vitamin D deficiency Surgical History H/O esophagogastroduodenoscopy 04/25/2019: Healed duodenal ulcer H/O tubal ligation History of cataract extraction (~2018) History of colon surgery History of hysterectomy History of knee replacement (~2006) right knee Status post colonoscopy 04/25/2019: Diverticulosis and internal hemorrhoids Family History Mother Guillain Gonzalez? syndrome Father Alcoholism Social History Smoking and tobacco status: current every day smoker cigarettes Packs smoked per day: 2 Alcohol intake: current Alcohol intake frequency: 3 or more drinks per day Desire information about alcohol rehabilitation?: Yes (has not drank in 3 weeks) Marital status: Current occupational status: retired Vitals/I&O/Wt Last Vital Signs Temp 98.8 F 10/24/19 09:00 Pulse 114 H 10/24/19 11:00 Resp 29 H 10/24/19 11:00 BP 106/76 10/24/19 11:00 Pulse Ox 94 10/24/19 11:00 10/24/19 10/24/19 10/24/19 06:59 14:59 22:59 Intake Total 652.75 / 652.75 410 / 410 50 / 460 Output Total 900 / 900 400 / 400 Balance -247.25 / -247.25 10 50 / 60 Weight last 48 hrs Weight 107.501 kg Physical Exam Const: COMMON NORMALS: no acute distress NUTRITIONAL APPEARANCE: overweight Extremity: GENERAL: Yes edema OTHER: venous stasis changes Data Micro: Micro: Microbiology 10/23/19 20:10 Legionella Urinary Antigen - Final Urine,Voided Bacterial Antigens - Final 10/23/19 23:56 Blood Culture - Pr eliminary Blood SPECIMEN [facility] 10/23/19 23:56 Blood Culture - Pr eliminary Blood SPECIMEN [facility] Other Data: Other data: CXR Bilateral lower lobe pneumonia CT Abd 10/12/2019: normal kidneys and adrenal glands urinalysis 3+ blood, 0-4 RBC/HPF 7.40/31/75 A&P Additional A&P Information Impression: 1. Chronic hyponatremia, currently assymptomatic. Hypervolemic 2. Metabolic acidosis, respiratory alkalosis 3. Heme pigment in urine 4. Chronic kidney disease, renal function near baseline Recommend: Increase furosemide, restrict fluids, oral sodium bicarbonate, accurate I/O, daily weights, Check CK. 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
--- NOTE | 2019-10-24 19:25 | PC.NURSE ---
Shift summary: Pt alert and oriented. She jokes and talks to staff quite a bit. Pt on 5lpm/NC, no changes. Pt able to get out of ed with PT and walker. Sat in chair. , She does get slightly short of breath with exertion. She requires assistance scooting up in bed. PReferes to sit upright in the bed. Lasix ordered increased to 80mg q 8 hr an Cardizem increased to 60mg every 6 hrs. Pt has had greater than 1200 urine output. Her CBC has several irregularities, she is scheduled for bone biopsy in am. She was put on 1200ml fluid restriction this afternoon.
[2019-10-24] MEDS: trazodone 100 mg Tablet PO (20:20)
[2019-10-24] MEDS: sodium bicarbonate 650 mg Tablet PO (20:20)
[2019-10-24] MEDS: FUROsemide 10 mg/mL SDV 10mL 80 MG IVP (20:20)
[2019-10-24] MEDS: LORazepam 2 mg/mL INJ 1 mL 1 MG IVP (22:59)
[2019-10-25] VITALS (19 sets, daily range): BP systolic 94–129; BP diastolic 61–79; PULSE 92–123; RESP 12–29; TEMP 36.6–36.8; O2SAT 68–94
[2019-10-25] MEDS: famotidine 20 mg/2 mL INJ IVP ×2 (00:54→13:05)
[2019-10-25] MEDS: dilTIAZem 60 mg Tablet PO ×3 (02:46→14:22)
[2019-10-25] MEDS: piperacillin-tazobactam 3.375 GM in sodium chloride 0.9% (plus) 50 ML IV ×2 (04:06→13:06)
[2019-10-25 04:12] LABS: Hematocrit 24.4 % (37.0-47.0); Hemoglobin 7.7 g/dL (11.5-15.3); Mean Corpuscular HGB Conc 31.6 g/dL (30.0-36.0); Mean Corpuscular Hemoglobin 28.6 pg (28.0-34.0); Mean Corpuscular Volume 90.7 fL (81-99); Mean Platelet Volume 9.5 fL (7.4-10.4); Red Blood Count 2.69 10^6/uL (4.1-5.3); Red Cell Distribution Width 25.4 % (12.1-15.1)
[2019-10-25 04:34] LABS: Creatine Phosphokinase 25 U/L (26-192)
[2019-10-25 04:39] LABS: Alanine Aminotransferase 15 U/L (0-33); Albumin Level 2.9 g/dL (3.5-5.2); Alkaline Phosphatase 131 IU/L (35-105); Aspartate Amino Transferase 22 U/L (0-32); Blood Urea Nitrogen 26 mg/dL (8-23); Calcium 8.2 mg/dL (8.5-10.5); Carbon Dioxide 23 mmol/L (22-29); Chloride 97 mmol/L (98-107); Globulin 3.5 g/dL (1.3-4.6); Glucose 120 mg/dL (65-115); Osmolality Calculated 268 mOsm/kg (285-295); Sodium 130 mmol/L (136-145); Total Bilirubin 0.5 mg/dL (0.15-1.2); Total Protein 6.4 g/dL (6.6-8.7)
[2019-10-25 05:27] LABS: Platelet Count 21 10^3/cmm (130-400)
[2019-10-25] MEDS: FUROsemide 10 mg/mL SDV 10mL 80 MG IVP ×2 (05:42→13:08)
--- NOTE | 2019-10-25 07:00 | XR_ITS ---
WS: [id number] EXAM: AP CHEST: PORTABLE UPRIGHT DATE OF EXAM: 10/25/2019, 0424 hours COMPARISON: Chest x-rays from 10/12/2019 and 10/23/2019 HISTORY: Patient is 73 years old with follow-up pneumonia. FINDINGS: The cardiac silhouette is stable. Considered minimally enlarged The mediastinal contours are simil ar. The pulmonary vascularity is congested. I question if there is interval development of slight i nterstitial edema. Right lung pneumonia appears slightly worse. New patchy infiltrate in the left ross ng base now present. There is no effusion or pneumothorax. No acute bony abnormality is seen. XR/XR chest 1V portable [id number] IMPRESSION: Stable enlarged cardiac silhouette. Interval increase in pulmonary vascular con gestion. I question some degree of interstitial edema now present. Slightly wor sening right lung pneumonia and developing patchy infiltrate left lung base.
[2019-10-25 07:20] LABS: Absolute Eosinophils 0.3 10^3/cmm (0.0-0.7); Absolute Segmented Neutrophil 3.9 10/cmm (1.6-7.1); Band Neutrophils Absolute 0.7 10^3/cmm (0.0-1.2); Eosinophils 1 %; Lymphocytes 44 %; Lymphocytes Absolute 16.8 10^3/cmm (1.2-3.4); Monocytes Absolute 12.3 10^3/cmm (0.1-0.6); Segmented Neutrophils 11 %; Total Cells Counted 100 (0-100)
[2019-10-25 07:22] LABS: Absolute Neutrophil 4.6 10^3/cmm (1.4-6.5); Blastocytes 3 % (0-0); Platelet Estimate Decreased (Normal)
[2019-10-25 07:23] LABS: Ovalocytes 1+; Poikilocytosis 1+
[2019-10-25] MEDS: sodium chloride 0.9% 1,000 ML 30 ML IV (07:41)
--- NOTE | 2019-10-25 08:46 | SUR.OPER ---
0843 Bone marrow biopsy cancelled due to patient low platelet count per Dr. Blas.
[2019-10-25] MEDS: polyethylene glycol 3350 Pkt 17 gm PO (08:51)
[2019-10-25] MEDS: folic acid 1 mg Tablet PO (08:51)
[2019-10-25] MEDS: metoprolol tartrate 50 mg Tablet PO (08:51)
[2019-10-25] MEDS: thiamine 100 mg Tablet PO (08:51)
[2019-10-25] MEDS: atorvastatin 40 mg Tablet 20 MG PO (08:51)
--- NOTE | 2019-10-25 10:06 | P.PN_ITS ---
Subjective Subjective: Interval history: Jazmín reports her breathing is about like yesterday. Still short of breath. Was going to have a bone marrow this morning but concern with needing longer bone marrow needle biopsy as well as length of tissue going through in patient with low platelets. Medications: Reviewed: Yes Vitals/I&O/Wt Last Vital Signs Temp 98.3 F 10/25/19 07:50 Pulse 121 H 10/25/19 09:31 Resp 20 H 10/25/19 09:31 BP 108/69 10/25/19 07:50 Pulse Ox 91 10/25/19 09:39 10/24/19 10/25/19 10/25/19 22:59 06:59 14:59 Intake Total 800 / 1510 50 / 1560 Output Total 350 / 1150 1200 / 2350 450 / 450 Balance 450 / 360 -1150 / -790 -450 / -450 Weight last 48 hrs Weight 107.501 kg Physical Exam Narrative: EXAM NARRATIVE: General exam is an elderly white female in no apparent distress Cardiovascular irregular rhythm, with slightly accelerated rate. No murmur. Lungs diminished breath sounds bilaterally. Few bilateral crackles Abdomen is soft with positive bowel sounds Extremities trace bilateral edema Data : 10/25/19 03:29 10/25/19 03:29 Micro: Microbiology 10/23/19 23:56 Blood Culture - Preliminary Blood NEGATIVE TO DATE 10/23/19 23:56 Blood Culture - Preliminary Blood NEGATIVE TO DATE 10/23/19 20:10 Legionella Urinary Antigen - Final Urine,Voided Bacterial Antigens - Final A&P Assessment and plan (1) Sepsis with acute hypoxic respiratory failure: No improvement overnight. Still on 5 L Status: Acute Qualifiers: Sepsis type: sepsis due to unspecified organism Severe sepsis shock status: without septic shock Qualified Code(s): A41.9 - Sepsis, unspecified organism; R65.20 - Severe sepsis without septic shock; J96.01 - Acute respiratory failure with hypoxia (2) Hospital-acquired pneumonia: On admission she was treated as a hospital-acquired pneumonia secondary to recent hospitalization, and also concern of neutropenia. She was placed on vancomycin, Zosyn and Levaquin. Await sputum culture and blood culture. Awaiting MRSA PCR Status: Acute (3) Atrial fibrillation with rapid ventricular response: Continue oral metoprolol. She has been changed to oral Cardizem. Status: Acute (4) Thrombocytopenia: Platelet count still significantly low. There was concern during her last hospital stay that this was secondary to acute alcohol bone marrow suppression. However, it is been 3 weeks since her last drink. Her platelet count was normal earlier this year. She has significant anemia as well with no evidence of ongoing bleeding. Manual differential this morning demonstrated some blast cells. White blood cell count is increased significantly. No diarrhea to suggest C. difficile. 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 There exists a concern she may have acute leukemia. I discussed with oncology who will be seeing her. She had significant previous work-up including tick titers, parvovirus, EBV, etc. on her last hospital stay. Haptoglobin slightly high. LDH was elevated at 416. Cortisol level 16.87. Reticulocyte count is checked and low for level of anemia. Status: Acute (5) Atrial fibrillation, chronic: Continue metoprolol, Cardizem p.o. Anticoagulation discontinued secondary to risk of bleeding with severe thrombocytopenia. Status: Acute (6) CHF (congestive heart failure): May be secondary to accelerated rate. Echocardiogram 08/22 demonstrated normal EF, moderate TR Repeat echocardiogram is pending Nephrology is also on board which is increased her Lasix Status: Acute Qualifiers: Heart failure type: diastolic Heart failure chronicity: chronic Qualified Code(s): I50.32 - Chronic diastolic (congestive) heart failure Additional A&P Information Anemia. She was transfused 1 unit of packed red blood cells on admission for symptomatic anemia. Hemoglobin has again drifted down. I am considering repeat transfusion but will visit with oncology/hematology first Hyponatremia, improved, with diuresis. 1250 cc diuresis yesterday Hyperkalemia, resolved History of gastritis. Currently on Protonix. As this may cause thrombocytopenia will discontinue this and initiate H2 zara DVT prophylaxis SCDs not a candidate to be on anticoagulation because of severe anemia, thrombocytopenia Cardiac diet DNR/DNI: Discussed with the patient in detail Attestations Medical Necessity Statement*: Needs continued ICU stay secondary to severe thrombocytopenia, possible leukemia right-sided pneumonia. Time Spent in Patient Care: 40 minutes spent in critical care time in this patient acutely ill with anemia, thrombocytopenia, possible leukemia, hospital- acquired pneumonia, chronic kidney disease with worsening renal function with high risk of decompensation and/or . Coding Level of Care Code Acute Surveillance Sensor Operator for Chg Fwd Diagnoses Sepsis with acute hypoxic respiratory failure A41.9; R65.20; J96.01 Sepsis type: sepsis due to unspecified organism Severe sepsis shock status: without septic shock Hospital-acquired pneumonia J18.9; Y95 Atrial fibrillation with rapid ventricular response I48.91 Thrombocytopenia D69.6 Atrial fibrillation, chronic I48.20 CHF (congestive heart failure) I50.32 Heart failure type: diastolic Heart failure chronicity: chronic
--- NOTE | 2019-10-25 10:16 | PM.PN ---
Subjective Subjective: Interval history: no new complaints Medications: Reviewed: Yes Vitals/I&O/Wt Last Vital Signs Temp 98.3 F 10/25/19 07:50 Pulse 121 H 10/25/19 09:31 Resp 20 H 10/25/19 09:31 BP 108/69 10/25/19 07:50 Pulse Ox 91 10/25/19 09:39 10/24/19 10/25/19 10/25/19 22:59 06:59 14:59 Intake Total 800 / 1510 50 / 1560 Output Total 350 / 1150 1200 / 2350 450 / 450 Balance 450 / 360 -1150 / -790 -450 / -450 Weight last 48 hrs Weight 107.501 kg Physical Exam Const: COMMON NORMALS: no acute distress GENERAL APPEARANCE: cooperative Resp: EFFORT & INSPECTION: Yes audible wheezes Cardio: COMMON NORMALS: regular rhythm RHYTHM: regular rhythm Extremity: GENERAL: Yes edema Skin: GENERAL SKIN EXAM: ecchymosis Data : 10/25/19 03:29 10/25/19 03:29 Other Labs: CK 25 Micro: Microbiology 10/23/19 23:56 Blood Culture - Preliminary Blood NEGATIVE TO DATE 10/23/19 23:56 Blood Culture - Preliminary Blood NEGATIVE TO DATE 10/23/19 20:10 Legionella Urinary Antigen - Final Urine,Voided Bacterial Antigens - Final A&P Additional A&P Information Impression: 1. Chronic hyponatremia, currently assymptomatic. Hypervolemic, diuresing, sodium improving 2. Metabolic acidosis, resolved. Discontinue oral sodium bicarbonate 3. Chronic kidney disease, serum creatinine increased with diuresis Recommend: Continue current furosemide dose, restrict fluids. Repeat labs later today. Attestations Medical Necessity Statement*: per primary service Time Spent in Patient Care: 16 - 35 minutes Coding Level of Care Code Acute Regulatory Compliance Specialist for Germania Love
--- NOTE | 2019-10-25 13:52 | PM.TDS ---
Transfer Summary Providers Date of Admission: 10/23/19 19:24 Date of Discharge: 10/25/19 Attending Provider at Admission: Ad Roy MD Attending Provider at Transfer: Jass Zaidi MD Primary Care Provider: Aftab Gutierres DO Anticipated Date of Transfer: Anticipated date of transfer: 10/25/19 Receiving Facility & Provider: Receiving Provider: [Bassem] Receiving facility: [Dr. Barton] Diagnoses at Discharge Discharge Diagnosis (1) Sepsis with acute hypoxic respiratory failure: Status: Acute Problem details: On broad-spectrum antibiotics Qualifiers: Sepsis type: sepsis due to unspecified organism Severe sepsis shock status: without septic shock Qualified Code(s): A41.9 - Sepsis, unspecified organism; R65.20 - Severe sepsis without septic shock; J96.01 - Acute respiratory failure with hypoxia (2) Hospital-acquired pneumonia: Status: Acute Problem details: Predominantly right-sided. Currently on vancomycin, Zosyn, Levaquin (3) Atrial fibrillation with rapid ventricular response: Status: Acute Problem details: Rate under fair control (4) Thrombocytopenia: Status: Acute Problem details: Overall picture concerning for acute leukemia (5) Atrial fibrillation, chronic: Status: Acute (6) CHF (congestive heart failure): Status: Acute Problem details: Compensated currently Qualifiers: Heart failure type: diastolic Heart failure chronicity: chronic Qualified Code(s): I50.32 - Chronic diastolic (congestive) heart failure Reason for Visit Reason for Visit: Shortness of breath Hospital Course Hospital Course: lAexa is a 73-year-old white female who was recently in the hospital for dyspnea, low platelets, CHF and atrial fibrillation that re-presented to the hospital 3 to 4 days after discharge with cough and worsening dyspnea. Right-sided pneumonia was noted. She was admitted to the ICU, and placed on broad-spectrum antibiotics consisting of vancomycin, Zosyn, and Levaquin. She was noted to be anemic, with a low platelet count as she was on previous hospital stays. Atypical lymphs were noted on the manual differential. She received 1 unit of blood for hemoglobin of 7.5 which was symptomatic. She was noted to be hyponatremic, and there was concern of her heart failure as well so she was placed on Lasix orally, which was shortly thereafter changed to IV Lasix. The following day her sodium had increased to 130 from 122. Renal function remained stable with a creatinine of 1.7. However, she appeared to be worsening clinically. A manual differential was done on her CBC demonstrating 3% blasts. There was concern she possibly had leukemia on admission, but with the identification of blasts this increase the possibility significantly. I discussed her case with oncology and they recommended transfer to a center that treats acute leukemia. During the day of October 24, her oxygen requirement increased significantly as well, with a requiring 9 to 10 L high flow nasal cannula. I confirmed her DNR/DNI order. I discussed her case with [facility] and they accepted her in transfer for acute leukemia to their ICU. I discussed with the patient her poor prognosis, possible risk of decompensation during transfer. Of other note echocardiogram was done during this hospital stay with an EF of 55 to 60%, moderate tricuspid regurgitation. Please see details from previous hospital stay as well regarding her infectious disease work-up. Physical Exam Narrative: EXAM NARRATIVE: General exam is a conversive white female who is tachypneic Cardiovascular irregular, irregular with a rate of approximately 110 Lungs diminished breath sounds bilaterally Abdomen is soft and positive bowel sounds Extremities no cyanosis clubbing or edema TS Data Data Completed and Pending: Completed Studies During Hospitalization Category Date Time Status XR chest 1V yola ble [id number] Routine Exams 10/25/19 07:00 Completed XR chest 1V yola ble [id number] Stat Exams 10/23/19 17:33 Completed CV echo complete* [id number] Routine Ultrasound 10/25/19 16:38 Completed Pending at discharge Category Date Time Status Basic Metabolic P ada Routine Lab 10/25/19 15:29 Ordered Blood Culture Sta t Lab 10/23/19 23:56 Results Leukocyte Reduced RBC Stat Lab 10/23/19 19:00 Results Respiratory Viral Panel PCR Routine Lab 10/24/19 12:42 Received Sputum Culture an d Gram Stain Stat Lab 10/25/19 11:38 Received Total Protein Reina ctrophoresis Routi ne Lab 10/24/19 20:32 Received Type and Screen S tat Lab 10/23/19 19:00 Results Vancomycin Trough Timed Lab 10/26/19 22:00 Ordered Bone Marrow [PTH] Routine Pth 10/25/19 08:00 Uncollected Pathology: Surgic al [PTH] Routine Pth 10/25/19 07:52 Ordered Labs from last 24 hours 10/25/19 10/25/19 10/25/19 03:30 03:29 03:29 WBC 35.0 H* RBC 2.69 L Hgb 7.7 L Hct 24.4 L MCV 90.7 MCH 28.6 MCHC 31.6 RDW 25.4 H Plt Count 21 L* MPV 9.5 Neut % (Auto) Lymph % (Auto) Wallace % (Auto) Eos % (Auto) Baso % (Auto) Neut # (Auto) Lymph # (Auto) Wallace # (Auto) Eos # (Auto) Baso # (Auto) Nucleated RBC % (a uto) Total Counted 100 Atypical Lymphs % 4.0 Absolute Neutrophi ls 4.6 Segmented Neutroph ils 11 Abs Segm Neuts (Ma n) 3.9 Band Neutrophils 2.0 Abs Band Neuts (Ma n) 0.7 Absolute Lymphocyt es 16.8 H Lymphocytes (Manua l) 44 Monocytes (Manual) 35.0 Absolute Monocytes 12.3 H Eosinophils (Manua l) 1 Absolute Eosinophi ls 0.3 Nucleated RBCs # Blast Cells 3 H* Platelet Estimate Decreased L Poikilocytosis 1+ H Ovalocytes 1+ H Sodium Potassium Chloride Carbon Dioxide Anion Gap BUN Creatinine GFR Calculation Glucose Calculated Osmolal ity Calcium Total Bilirubin AST ALT Alkaline Phosphata se Creatine Kinase 25 L Total Protein Albumin Globulin Wpwjl-7-Sfeyymqof Yeivz-7-Pwgytdppm Wltk-9-Qashopqi Cvnu-7-Tvpdbela Gamma Globulins Abnorm Protein Ban d 1 U Abnormal Prot Ba nd 2 U Abnormal Prot Ba nd 3 RSV Nasal Swab Pending RSV Nasal Swab Int Cntl Pending Pro Electrophoresi s Int Adenovirus (PCR) Pending Human Metapneumovi r PCR Pending Influenza A (RT-PC R) Pending Influenza A (H1) P CR Pending Influenza A (H3) P CR Pending Influenza B (RT-PC R) Pending Parainfluenzae Typ e 1 Pending Parainfluenzae Typ e 2 Pending Parainfluenzae Typ e 3 Pending RSV Ab Comment Pending Rhinovirus (PCR) Pending 10/25/19 10/24/19 10/24/19 03:29 20:32 15:08 WBC RBC Hgb Hct MCV MCH MCHC RDW Plt Count MPV Neut % (Auto) Lymph % (Auto) Wallace % (Auto) Eos % (Auto) Baso % (Auto) Neut # (Auto) Lymph # (Auto) Wallace # (Auto) Eos # (Auto) Baso # (Auto) Nucleated RBC % (a uto) Total Counted Atypical Lymphs % Absolute Neutrophi ls Segmented Neutroph ils Abs Segm Neuts (Ma n) Band Neutrophils Abs Band Neuts (Ma n) Absolute Lymphocyt es Lymphocytes (Manua l) Monocytes (Manual) Absolute Monocytes Eosinophils (Manua l) Absolute Eosinophi ls Nucleated RBCs # Blast Cells Platelet Estimate Poikilocytosis Ovalocytes Sodium 130 L 123 L Potassium 4.0 5.0 Chloride 97 L 94 L Carbon Dioxide 23 16 L Anion Gap 14.0 18.0 BUN 26 H 23 Creatinine 1.7 H 1.4 H GFR Calculation Not Reportable Not Reportable Glucose 120 H 157 H Calculated Osmolal ity 268 L 256 L Calcium 8.2 L 8.2 L Total Bilirubin 0.5 AST 22 ALT 15 Alkaline Phosphata se 131 H Creatine Kinase Total Protein 6.4 L Pending Albumin 2.9 L Pending Globulin 3.5 Lwehi-7-Tpzhtretf Pending Goexx-4-Kporbpifu Pending Kjlk-5-Itszwrsv Pending Btdp-1-Trazkuhs Pending Gamma Globulins Pending Abnorm Protein Ban d 1 Pending U Abnormal Prot Ba nd 2 Pending U Abnormal Prot Ba nd 3 Pending RSV Nasal Swab RSV Nasal Swab Int Cntl Pro Electrophoresi s Int Pending Adenovirus (PCR) Human Metapneumovi r PCR Influenza A (RT-PC R) Influenza A (H1) P CR Influenza A (H3) P CR Influenza B (RT-PC R) Parainfluenzae Typ e 1 Parainfluenzae Typ e 2 Parainfluenzae Typ e 3 RSV Ab Comment Rhinovirus (PCR) 10/24/19 15:08 WBC 22.4 H RBC 3.02 L Hgb 8.6 L Hct 26.6 L MCV 88.1 MCH 28.5 MCHC 32.3 RDW 24.8 H Plt Count 16 L* MPV Not Reportable Neut % (Auto) 26.6 Lymph % (Auto) 17.6 Wallace % (Auto) 54.4 Eos % (Auto) 0.4 Baso % (Auto) 0.0 Neut # (Auto) 5.92 Lymph # (Auto) 3.9 Wallace # (Auto) 12.2 H Eos # (Auto) 0.1 Baso # (Auto) 0.0 Nucleated RBC % (a uto) 0.3 Total Counted Atypical Lymphs % Absolute Neutrophi ls Segmented Neutroph ils Abs Segm Neuts (Ma n) Band Neutrophils Abs Band Neuts (Ma n) Absolute Lymphocyt es Lymphocytes (Manua l) Monocytes (Manual) Absolute Monocytes Eosinophils (Manua l) Absolute Eosinophi ls Nucleated RBCs # 0.1 Blast Cells Platelet Estimate Poikilocytosis Ovalocytes Sodium Potassium Chloride Carbon Dioxide Anion Gap BUN Creatinine GFR Calculation Glucose Calculated Osmolal ity Calcium Total Bilirubin AST ALT Alkaline Phosphata se Creatine Kinase Total Protein Albumin Globulin Hdyvl-5-Cfofspmqd Aldpj-6-Syjnvlmvl Eikq-0-Kfagbmwa Iaco-4-Zbpqooqj Gamma Globulins Abnorm Protein Ban d 1 U Abnormal Prot Ba nd 2 U Abnormal Prot Ba nd 3 RSV Nasal Swab RSV Nasal Swab Int Cntl Pro Electrophoresi s Int Adenovirus (PCR) Human Metapneumovi r PCR Influenza A (RT-PC R) Influenza A (H1) P CR Influenza A (H3) P CR Influenza B (RT-PC R) Parainfluenzae Typ e 1 Parainfluenzae Typ e 2 Parainfluenzae Typ e 3 RSV Ab Comment Rhinovirus (PCR) Vitals: Last Vital Signs Temp 98.3 F 10/25/19 07:50 Pulse 121 H 10/25/19 09:31 Resp 20 H 10/25/19 09:31 BP 108/69 10/25/19 07:50 Pulse Ox 91 10/25/19 09:39 TS Medications Medications Home Medications diphenhydramine HCl 25 mg capsule 25 mg PO Q6H PRN 04/02/19 [History Confirmed 10/24/19] nitroglycerin 0.4 mg sublingual tablet 0.4 mg SUBLINGUAL Q5M PRN 04/02/19 [History Confirmed 10/24/19] potassium chloride 10 mEq tablet,extended release 60 meq PO DAILY #90 tab 04/24/19 [Rx Confirmed 10/24/19] nortriptyline 25 mg capsule 25 mg PO TID #270 cap 05/06/19 [Rx Confirmed 10/24/19] ergocalciferol (vitamin D2) 1,250 mcg (50,000 unit) capsule 1,250 mcg PO .weekly #20 cap 05/27/19 [Rx Confirmed 10/24/19] warfarin 3 mg tablet See Rx Instructions .ROUTE .COMPLEX #90 tab 09/10/19 [Rx Confirmed 10/24/19] rosuvastatin 5 mg tablet 5 mg PO QDAY 09/23/19 [History Confirmed 10/24/19] trazodone 100 mg tablet See Rx Instructions .ROUTE .COMPLEX #180 tab 09/30/19 [Rx Confirmed 10/24/19] diltiazem HCl [Cartia XT] 120 mg PO BID 30 Days #180 cap 10/18/19 [Rx Confirmed 10/24/19] ferrous gluconate 324 mg PO BIDWM 30 Days #60 tab 10/18/19 [Rx Confirmed 10/24/19] folic acid 1 mg PO DAILY 30 Days #30 tab 10/18/19 [Rx Confirmed 10/24/19] furosemide 40 mg PO BID@08,16 30 Days #60 tab 10/18/19 [Rx Confirmed 10/24/19] metoprolol tartrate 50 mg PO BID 30 Days #60 tab 10/18/19 [Rx Confirmed 10/24/19] multivitamin 1 cap PO DAILY 30 Days #30 cap 10/18/19 [Rx Confirmed 10/24/19] multivitamin with folic acid [Thera] 1 tab PO DAILY 30 Days #30 tab 10/18/19 [Rx Confirmed 10/24/19] pantoprazole 40 mg PO BID 30 Days #60 tab 10/18/19 [Rx Confirmed 10/24/19] thiamine mononitrate (vit B1) [Vitamin B-1 (mononitrate)] 100 mg PO DAILY 30 Days #30 tab 10/18/19 [Rx Confirmed 10/24/19] Active Medications Albuterol Sulfate (Albuterol) 2.5 mg INHALATION ONCE PRN PRN Reason: WHEEZING Atorvastatin Calcium (Lipitor) 20 mg PO DAILY [facility] Last Admin: 10/25/19 08:51 Dose: 20 mg Documented by: Diltiazem HCl (Cardizem) 60 mg PO Q6H [facility] Last Admin: 10/25/19 08:51 Dose: 60 mg Documented by: Famotidine (Pepcid Inj) 20 mg IVP Q12H [facility] Last Admin: 10/25/19 13:05 Dose: 20 mg Documented by: Famotidine (Pepcid Inj) 20 mg IVP ONCE PRN PRN Reason: HEARTBURN Fentanyl (Sublimaze) 100 mcg IVP ONCE PRN PRN Reason: Per anesthesia for block Fentanyl (Sublimaze) 50 mcg IVP Q10M PRN PRN Reason: Preop Pain Ferrous Gluconate (Ferrous Gluconate) 324 mg PO Q48H [facility] Last Admin: 10/23/19 23:11 Dose: 324 mg Documented by: Folic Acid (Folic Acid) 1 mg PO DAILY [facility] Last Admin: 10/25/19 08:51 Dose: 1 mg Documented by: Furosemide (Lasix) 80 mg IVP Q12H [facility] Last Admin: 10/25/19 13:08 Dose: 80 mg Documented by: Vancomycin HCl 1,000 mg/ (Sodium Chloride) 250 mls @ 250 mls/hr IV Q24H [facility]; Protocol Last Admin: 10/24/19 23:42 Dose: 250 mls/hr Documented by: Piperacillin Sod/Tazobactam (Sod 3.375 gm/ Sodium Chloride) 50 mls @ 12.5 mls/hr IV Q8H [facility]; Protocol Last Admin: 10/25/19 13:06 Dose: 12.5 mls/hr Documented by: Sodium Chloride (Sodium Chloride 0.9%) 1,000 mls @ 30 mls/hr IV .Q24H [facility] Stop: 10/26/19 07:14 Last Admin: 10/25/19 07:41 Dose: 30 mls/hr Documented by: Ipratropium [place] (Atrovent Neb) 0.5 mg INHALATION Q6H.RESPIRATORY PRN PRN Reason: AIR HUNGER Ipratropium [place] (Atrovent Neb) 0.5 mg INHALATION ONCE PRN PRN Reason: WHEEZING Levalbuterol HCl (Xopenex) 0.63 mg INHALATION Q6H.RESPIRATORY PRN PRN Reason: AIR HUNGER Levofloxacin (Levaquin) 750 mg PO Q48H [facility]; Protocol Last Admin: 10/23/19 23:11 Dose: 750 mg Documented by: Lidocaine HCl (Lidocaine 1%) 0.1 ml INTRADERMA PRN PRN PRN Reason: anesthetic prior to IV start Stop: 10/26/19 07:13 Lidocaine HCl (Lidocaine 2% Viscous) 1 ml TOPICAL PRN PRN PRN Reason: Anesthetic prior to IV start Lorazepam (Ativan) 1 mg IVP Q4H PRN PRN Reason: ANXIETY Last Admin: 08/20/20 22:59 Dose: 1 mg Documented by: Metoclopramide HCl (Reglan) 10 mg IVP ONCE PRN PRN Reason: N/V if zofran ineffective Metoprolol Tartrate (Lopressor) 50 mg PO BID [facility] Last Admin: 10/25/19 08:51 Dose: 50 mg Documented by: Midazolam HCl (Versed) 5 mg IVP ONCE PRN PRN Reason: Per anesthesia for block Midazolam HCl (Versed) 2 mg IVP Q5M PRN PRN Reason: Preop Anxiety Morphine Sulfate (Morphine) 4 mg IVP Q4H PRN PRN Reason: SEVERE PAIN Last Admin: 10/24/19 20:21 Dose: 4 mg Documented by: Ondansetron HCl (Zofran) 4 mg IVP Q6H PRN PRN Reason: NAUSEA AND VOMITING Ondansetron HCl (Zofran) 4 mg IVP Q5M PRN PRN Reason: NAUSEA AND VOMITING Polyethylene Glycol (Miralax) 17 gm PO DAILY [facility] Last Admin: 10/25/19 08:51 Dose: 17 gm Documented by: Scopolamine (Transderm-Scop) 1 patch TRANSDERMA ONCE PRN PRN Reason: Nausea/ Vomiting Prophylaxis Senna/Docusate Sodium (Senna-S) 1 tab PO DAILY PRN PRN Reason: CONSTIPATION Thiamine Mononitrate (Vitamin B-1) 100 mg PO DAILY [facility] Last Admin: 10/25/19 08:51 Dose: 100 mg Documented by: Trazodone HCl (Desyrel) 100 mg PO BEDTIME [facility] Last Admin: 10/24/19 20:20 Dose: 100 mg Documented by: Discharge Plan Discharge Patient Disposition: Xfer Short-Term Hosp Condition: Stable Prescriptions: No Action diphenhydramine HCl [Allergy (diphenhydramine)] 25 mg capsule 25 mg PO Q6H PRN (Reason: Allergy Symptoms) RF: 0 nitroglycerin [Nitrostat] 0.4 mg tablet, sublingual 0.4 mg SUBLINGUAL Q5M PRN (Reason: Chest Pain) RF: 0 rosuvastatin [Crestor] 5 mg tablet 5 mg PO QDAY RF: 0 nortriptyline 25 mg capsule 25 mg PO TID Qty: 270 RF: 3 potassium chloride 10 mEq tablet extended release 60 meq PO DAILY Qty: 90 RF: 11 ergocalciferol (vitamin D2) 1,250 mcg (50,000 unit) capsule 1,250 mcg PO .weekly Qty: 20 RF: 3 warfarin 3 mg tablet See Rx Instructions .ROUTE .COMPLEX Qty: 90 RF: 3 Hold Instructions: Resume on 11/01/19. until seen by Dr. Lawson and Dr. Vicente trazodone 100 mg tablet See Rx Instructions .ROUTE .COMPLEX Qty: 180 RF: 0 furosemide 40 mg Tablet 40 mg PO BID@08,16 30 Days Qty: 60 RF: 0 metoprolol tartrate 50 mg Tablet 50 mg PO BID 30 Days Qty: 60 RF: 0 ferrous gluconate 324 mg (37.5 mg iron) Tablet 324 mg PO BIDWM 30 Days Qty: 60 RF: 0 pantoprazole 40 mg Tablet,Delayed Release (Dr/Ec) 40 mg PO BID 30 Days Qty: 60 RF: 0 thiamine mononitrate (vit B1) [Vitamin B-1 (mononitrate)] 100 mg Tablet 100 mg PO DAILY 30 Days Qty: 30 RF: 0 Thera 400 mcg Tablet 1 tab PO DAILY 30 Days Qty: 30 RF: 0 diltiazem HCl [Cartia XT] 120 mg capsule,extended release 24hr 120 mg PO BID 30 Days Qty: 180 RF: 3 multivitamin Capsule 1 cap PO DAILY 30 Days Qty: 30 RF: 0 folic acid 1 mg tablet 1 mg PO DAILY 30 Days Qty: 30 RF: 11 Discharge Orders: Transfer Out of Facility (Order); Ordered 10/25/19 Ordered By: Jass Zaidi Referrals: Aftab Gutierres DO [Primary Care Provider] - Transfer Attestations Time Spent in Transfer Care*: greater than 30 min Status at Transfer: Cognitive status at transfer: cognitively intact, Quality Metrics Clinical Quality Measures: During this hospital stay, did patient experience: None Coding Level of Care Code Acute [facility] for [facility] Fwd Diagnoses Sepsis with acute hypoxic respiratory failure A41.9; R65.20; J96.01 Sepsis type: sepsis due to unspecified organism Severe sepsis shock status: without septic shock Hospital-acquired pneumonia J18.9; Y95 Atrial fibrillation with rapid ventricular response I48.91 Thrombocytopenia D69.6 Atrial fibrillation, chronic I48.20 CHF (congestive heart failure) I50.32 Heart failure type: diastolic Heart failure chronicity: chronic
[2019-10-25] MEDS: morphine 4 mg/mL SDV 1 mL IVP (14:22)
--- NOTE | 2019-10-25 15:30 | PC.NURSE ---
O2 sats decreasing, 85-87%. Pt strugggling, using accessory muscles. audible wheezing noted. Pt refuses BiPap. On 10lpm/ high flow. Morphine admin for air hunger and pain.
--- NOTE | 2019-10-25 15:42 | PC.NURSE ---
Report called to [facility]. Report given to Manav Menard RN. All questions answered.
[2019-10-25] MEDS: LORazepam 2 mg/mL INJ 1 mL 1 MG IVP ×2 (16:19→17:35)
--- NOTE | 2019-10-25 16:20 | PC.NURSE ---
O2 sats dereaing more. Ativan admin. BiPap applied at 50%, . at bedside, encouraging pt to leave it on.
--- NOTE | 2019-10-25 16:38 | USCV_ITS ---
Jazmín Quinteros Age: 73 Gender: F : 1945 Exam Date: 10/25/2019 05:09 Ordering Phys: Jass Zaidi MD Technologist: Bushra Estevez [place] [facility] [place]: CHF BP: 97 / 62 HR: 99 Rhythm: Atrial fibrillation Technical Quality: Technically difficult study MEASUREMENTS (Male / Female) Normal Values 2D ECHO LV Diastolic Diameter PLAX 4.2 cm 4.2 - 5.9 / 3.9 - 5.3 cm LV Systolic Diameter PLAX 2.5 cm LV Chamber Size 4.0 cm IVS Diastolic Thickness 0.8 cm 0.6 - 1.0 / 0.6 - 0.9 cm IVS Systolic Thickness 1.5 cm LVPW Diastolic Thickness 1.2 cm 0.6 - 1.0 / 0.6 - 0.9 cm LVPW Systolic Thickness 1.4 cm RV Chamber Size 3.6 cm LVOT Diameter 2.0 cm LV Ejection Fraction 2D Teich 71.1 % LV Ejection Fraction MOD 2C 31.3 % LV Ejection Fraction 2C AL 30.8 % LA Diameter 4.5 cm LA Width 3.4 cm LA Height 4.5 cm RA Width 3.6 cm RA Height 4.8 cm Aorta at Sinotubular Diameter 2.9 cm M-MODE LV Diastolic Diameter MM 4.6 cm 4.2 - 5.9 / 3.9 - 5.3 cm LV Systolic Diameter MM 3.2 cm LV Ejection Fraction MM Teich 58.3 % IVS Diastolic Thickness MM 0.9 cm 0.6 - 1.0 / 0.6 - 0.9 cm IVS Systolic Thickness MM 1.6 cm LVPW Diastolic Thickness MM 1.4 cm 0.6 - 1.0 / 0.6 - 0.9 cm LVPW Systolic Thickness MM 1.5 cm RV Diastolic Diameter MM 1.5 cm Aortic Annulus Diameter 3.0 cm LA Ao Ratio MM 1.5 MV E Point Septal Separation 0.2 cm DOPPLER AV Peak Velocity 124.0 cm/s LVOT Peak Velocity 78.0 cm/s AV Area Cont Eq vti 2.3 cm squared AV Area Cont Eq pk 2.1 cm squared MV Area PHT 6.3 cm squared MV E' Velocity 14.0 cm/s Mitral E to MV E' Ratio 6.8 Mitral E to LV E' Lateral Ratio 7.6 Mitral E to LV E' Septal Ratio 6.1 TR Peak Velocity 265.4 cm/s TR Peak Gradient 28.2 mmHg TR Mean Velocity 206.5 cm/s TR Mean Gradient 18.6 mmHg TR Velocity Time Integral 88.6 cm TV Peak E Velocity 60.0 cm/s Right Atrial Pressure 15.0 mmHg Pulmonary Artery Systolic Pressu 43.2 mmHg PV Peak Velocity 60.0 cm/s RV Acceleration Time 0.1 s RV Ejection Time 0.3 s RV AcT/ET 0.4 FINDINGS Left Ventricle Normal left ventricular size, systolic function and wall thickness, with no regional wall motion abnormalities. LVEF of 55-60%. Normal left ventricular wall thickness. Diastolic function can not be assessed because of atrial fibrillation. Right Ventricle The right ventricle is mildly dilated has mildly reduced function. Right Atrium The right atrium is normal in size. Left Atrium The left atrium is normal in size. Mitral Valve Structurally normal mitral valve without significant stenosis or prolapse. There is no mitral regurgitation. Aortic Valve Structurally normal aortic valve without significant sclerosis or stenosis. There is no aortic regurgitation. Tricuspid Valve Structurally normal tricuspid valve without significant stenosis. Mild to moderate TR is noted. RVSP is 40-45mmHg. Moderate pulmonary hypertension. Pulmonic Valve Structurally normal pulmonic valve without significant stenosis. Pericardium Normal pericardium without effusion. Aorta Normal ascending aorta dimension. CONCLUSIONS LV systolic function is normal with EF of 55-60% Diastolic function can not be assessed because of atrial fibriallation Mild to moderate TR is present. Moderate pulmonary hypertension is noted. Amadou Simon MD (Electronically Signed) Final Date: 25 October 2019 13:18 S
--- NOTE | 2019-10-25 17:00 | PC.NURSE ---
[facility] crew hear. Pt aggitated, not wanting to wear their BiPaP , Non-rebreather applied.
--- NOTE | 2019-10-25 17:17 | PC.RESP ---
SMOKING CESSATION INFORMATION SENT TO PATIENT.
--- NOTE | 2019-10-25 17:55 | PC.NURSE ---
Pt discharged out of facility with [facility].
[2019-10-28 12:57] LABS: ABNORMAL PROTEIN BAND 1 0.5 g/dL (NONE DETECTED); ALBUMIN 2.6 g/dL (3.8-4.8); ALPHA 1 GLOBULIN 0.5 g/dL (0.2-0.3); ALPHA 2 GLOBULIN 0.7 g/dL (0.5-0.9); BETA 1 GLOBULIN 0.4 g/dL (0.4-0.6); BETA 2 GLOBULIN 0.4 g/dL (0.2-0.5); GAMMA GLOBULIN 1.4 g/dL (0.8-1.7)
[2019-10-30 06:37] LABS: Adenovirus Not Detected (Not Detected); Human Metapneumovirus Not Detected (Not Detected); Human Parainflu Virus 1 Not Detected (Not Detected); Human Parainflu Virus 2 Not Detected (Not Detected); Human Parainflu Virus 3 Not Detected (Not Detected); Human Rsv A Not Detected (Not Detected); Influenza A Not Detected (Not Detected); Influenza B Not Detected (Not Detected); Rhinovirus/Enterovirus Not Detected (Not Detected)
== END 2019-10-25 17:55 | disposition short-term general hospital (02) | DRG 871 ==
LOC: ER 19:26 → ICU 20:19
PROVIDERS: Internal Medicine; Admitting Provider Internal Medicine; Emergency Provider Emergency Medicine; PCP Family Medicine; Visit Provider Internal Medicine
DX: A41.9 Sepsis, unspecified organism (principal); J96.01 Acute respiratory failure with hypoxia; I50.33 Acute on chronic diastolic (congestive) heart failure; J18.9 Pneumonia, unspecified organism; I13.0 Hypertensive heart and chronic kidney disease with heart failure and stage 1 through stage 4 chronic kidney disease, or unspecified chronic kidney disease; I48.20 Chronic atrial fibrillation, unspecified; E87.1 Hypo-osmolality and hyponatremia; N17.9 Acute kidney failure, unspecified; C95.00 Acute leukemia of unspecified cell type not having achieved remission; E87.2 Acidosis; R65.20 Severe sepsis without septic shock; I25.10 Atherosclerotic heart disease of native coronary artery without angina pectoris; N18.9 Chronic kidney disease, unspecified; E78.5 Hyperlipidemia, unspecified; F17.210 Nicotine dependence, cigarettes, uncomplicated; F10.21 Alcohol dependence, in remission; Z79.01 Long term (current) use of anticoagulants; D63.1 Anemia in chronic kidney disease; D69.6 Thrombocytopenia, unspecified; G62.9 Polyneuropathy, unspecified; G25.81 Restless legs syndrome; M54.5 Low back pain; E55.9 Vitamin D deficiency, unspecified; Z96.651 Presence of right artificial knee joint; I07.1 Rheumatic tricuspid insufficiency; Z66 Do not resuscitate; I80.3 Phlebitis and thrombophlebitis of lower extremities, unspecified
CPT/HCPCS: 12345; 36415; 36430; 36600; 51702; 71045; 80048; 80051; 80053; 81001; 82533; 82550; 82810; 83010; 83605; 83615; 83735; 83880; 83986; 84155; 84165; 84443; 84484; 85007; 85025; 85027; 85045; 85610; 86403; 86850; 86900; 86920; 87040; 87449; 87641; 93005; 93306; 94640; 94660; 96375; 97162; 97530; 99283; J1940; J2060; J2270; J2405; J2543; J2704; J2930; J3370; J3490; J7030; J7050; P9016; Q3014